=== PATIENT | male | born 1940 | race Caucasian/White ===

== ENCOUNTER 2017-06-01 07:44 | Day surgery (SDC) | payer MEDICARE, BC ==
[2017-05-24 14:27] VITALS: BMI 26.5
[~2017-06-01 07:44] MED LIST: LACTATED RINGERS 1,000 ML IV SCH; LIDOCAINE 1% 20 ML VIAL (10MG/ML) FOR IV START INTRADERMA PRN; MOXIFLOXACIN HCL 0.5% DROPS 3 ML BTL OP ONE; TETRACAINE 0.5% OPHTH (PF) DROPS 4 ML BTL OP ONE; TIMOLOL 0.5% OPHTH SOLN (PF) 0.2 ML DROPERETTE OP ONE
[2017-06-01 08:59] VITALS: RESP 16; TEMP 98.4
[2017-06-01] MEDS: PHENYLEPHRINE 2.5% OPHTH DRP 2ML OP NR ×3 (09:00→09:15)
[2017-06-01] MEDS: CYCLOPENTOLATE 1% OPHTH SOLN 2 ML BTL OP ONE ×2 (09:06→09:18)
[2017-06-01] MEDS ORDERED: BALANCED SALT IRRIG SOLN COMB2 15 ML IRRIG.SOLN INTRAOCULA ONE (09:44)
[2017-06-01] MEDS ORDERED: TIMOLOL 0.5% OPHTH SOLN (PF) 0.2 ML DROPERETTE RIGHT EYE ONE (09:44)
[2017-06-01] MEDS ORDERED: LIDOCAINE 1% (PF) 10MG/ML VIAL MISCELLANE ONE (09:44)
[2017-06-01] MEDS ORDERED: MOXIFLOXACIN HCL 0.5% DROPS 3 ML BTL RIGHT EYE ONE (09:45)
[2017-06-01] MEDS ORDERED: fentaNYL (PF) 50 MCG/ML 2 ML AMP ONE (09:46)
[2017-06-01] MEDS ORDERED: MIDAZOLAM 2 MG/2 ML VIAL ONE (09:46)
[2017-06-01] MEDS ORDERED: HYALURONATE SODIUM INTRAOCULAR 1 EACH SYRINGE (12MG/ML) INTRAOCULA ONE (10:01)
--- NOTE | 2017-06-01 10:16 | P.OP ---
Date of Procedure: 06/01/17 Preoperative Diagnosis: NS & CS Postoperative Diagnosis: same Procedure(s) Performed: PIOL, OD Implants: PCB00 23.00 Anesthesia: MAC Surgeon: Arturo Burger Estimated Blood Loss (ml): 0 Pathology: none sent Condition: stable Disposition: same day Indications for Procedure: blurry vision Operative Findings: No complications Description of Procedure:
[2017-06-01 10:31] VITALS: BP 111/66; PULSE 73
--- NOTE | 2017-06-02 09:48 | OP ---
DATE OF SURGERY: 06/01/2017 COMMUNITY SUPPORT SPECIALIST: PREOPERATIVE DIAGNOSES: Nuclear sclerosis, cortical sclerosis. POSTOPERATIVE DIAGNOSES: Same. OPERATION: Phacoemulsification of cataract and intraocular lens implant of the right eye. ESTIMATED BLOOD LOSS: Zero. SPECIMEN TAKEN: None. NARRATIVE: After obtaining the appropriate consent, the patient was brought to the Operating Room where the patient was placed under cardiac monitoring and prepped and draped in the usual sterile manner. At the 11 oclock position a 15 degree super sharp blade was used to create a paracentesis followed by instillation of 1% Xylocaine MPF 50:50 mix with BSS into the anterior chamber. This was followed by Amvisc to stabilize the anterior chamber. At the 9 o clock position a self-sealing corneal flap incision was created using 2.8 mm shantell keratome. A cystatome was used to initiate a continuous tear capsulorrhexis which was completed with the Utrata forceps. A Binkhorst cannula was used to hydrodissect the lens nucleus followed by hydrodelineation. Phacoemulsification of the lens was performed utilizing phacochop in 30.63 seconds at 14% power. The remaining cortical material was removed using the irrigation aspiration mode followed by additional 1% Xylocaine MPF into the anterior chamber followed by viscoelastic to stabilize the capsular bag. An [id number] 23.0 diopters posterior chamber lens was placed into the capsular bag without difficulty. The remaining viscoelastic material was removed from the anterior chamber with the irrigation/aspiration. Balanced salt solution was used to normalize the intraocular pressure. The incision was checked for watertight integrity. The patient then received two drops of 0.5% timolol followed by two drops Vigamox, was lightly patched and shielded in the usual manner. There were no complications from the procedure. The patient tolerated the procedure well and was returned to recovery in good condition. ASHER
== END 2017-06-01 10:51 | disposition home or self-care (01) ==
LOC: OR 07:44
PROVIDERS: ATTEND Ophthalmology
DX: H25.13 Age-related nuclear cataract, bilateral (principal); H25.013 Cortical age-related cataract, bilateral; H52.223 Regular astigmatism, bilateral; H52.13 Myopia, bilateral; H53.002 Unspecified amblyopia, left eye; H53.50 Unspecified color vision deficiencies; Z87.891 Personal history of nicotine dependence; Z79.899 Other long term (current) drug therapy

== ENCOUNTER 2017-06-22 09:50 | Day surgery (SDC) | payer MEDICARE, BC ==
[2017-06-17 15:31] VITALS: BMI 26.5
[~2017-06-22 09:50] MED LIST changes: -LIDOCAINE 1% 20 ML VIAL (10MG/ML) FOR IV START INTRADERMA PRN
[2017-06-22 10:56] VITALS: TEMP 97
[2017-06-22] MEDS: CYCLOPENTOLATE 1% OPHTH SOLN 2 ML BTL OP ONE ×3 (10:59→11:05)
[2017-06-22] MEDS: PHENYLEPHRINE 2.5% OPHTH DRP 2ML OP NR ×3 (11:01→11:07)
[2017-06-22] MEDS: LACTATED RINGERS 1,000 ML IV SCH ×2 (11:02→11:47)
[2017-06-22] MEDS ORDERED: HYALURONATE SODIUM INTRAOCULAR 1 EACH SYRINGE (12MG/ML) INTRAOCULA ONE (11:47)
[2017-06-22] MEDS ORDERED: BALANCED SALT IRRIG SOLN COMB2 15 ML IRRIG.SOLN INTRAOCULA ONE (11:48)
[2017-06-22] MEDS ORDERED: LIDOCAINE 1% (PF) 10MG/ML VIAL SQ ONE (11:48)
[2017-06-22] MEDS ORDERED: MIDAZOLAM 2 MG/2 ML VIAL ONE (11:49)
[2017-06-22] MEDS ORDERED: fentaNYL (PF) 50 MCG/ML 2 ML AMP ONE (11:49)
[2017-06-22] MEDS ORDERED: EPINEPHrine (PF) 0.3 ML in BALANCED SALT IRRIG SOLN COMB2 500 ML IRRIGATION ONE (11:56)
--- NOTE | 2017-06-22 12:16 | P.OP ---
Date of Procedure: 06/22/17 Preoperative Diagnosis: NS & CS Postoperative Diagnosis: NS & CS Procedure(s) Performed: PIOL, OS Implants: PCB00 +27.00 Anesthesia: MAC Surgeon: Arturo Burger Estimated Blood Loss (ml): 0 Pathology: none sent Condition: stable Disposition: same day Indications for Procedure: blurry vision Operative Findings: no complications Description of Procedure:
[2017-06-22 12:17] VITALS: RESP 18
[2017-06-22 12:32] VITALS: BP 122/58; PULSE 78
[2017-06-22 14:06] LABS: Glucose,Whole Blood 112 mg/dL (75-99)
--- NOTE | 2017-06-23 13:38 | OP ---
OPERATIVE REPORT Date of Surgery: DATE OF SURGERY: May, [facility]:: PREOPERATIVE DIAGNOSES:: 1. Nuclear sclerosis. 2. Cortical sclerosis. POSTOPERATIVE DIAGNOSIS:: Same. OPERATION:: Phacoemulsification of cataract and intraocular lens implant to the left eye. ESTIMATED BLOOD LOSS:: Zero. SPECIMEN TAKEN:: None. NARRATIVE:: After obtaining the appropriate consent, the patient was brought to the Operating Room where the patient was placed under cardiac monitoring and prepped and draped in the usual sterile manner. At the 5 o'clock position a 15 degree super sharp blade was used to create a paracentesis followed by instillation of 1% Xylocaine MPF 50:50 mix with BSS into the anterior chamber. This was followed by Amvisc to stabilize the anterior chamber. At the 3 o'clock position a self-sealing corneal flap incision was created using 2.8 mm shantell keratome. A cystatome was used to initiate a continuous tear capsulorrhexis which was completed with the Utrata forceps. A Binkhorst cannula was used to hydrodissect the lens nucleus followed by hydrodelineation. Phacoemulsification of the lens was performed utilizing phacochop in 29.62 seconds at 13% power. The remaining cortical material was removed using the irrigation aspiration mode followed by additional 1% Xylocaine MPF into the anterior chamber followed by viscoelastic to stabilize the capsular bag. An PURVI PCB00 27.0 posterior chamber lens was placed into the capsular bag without difficulty. The remaining viscoelastic material was removed from the anterior chamber with the irrigation/aspiration. Balanced salt solution was used to normalize the intraocular pressure. The incision was checked for watertight integrity. The patient then received two drops of 0.5% timolol followed by two drops Vigamox, was lightly patched and shielded in the usual manner. There were no complications from the procedure. The patient tolerated the procedure well and was returned to recovery in good condition. MMODL / IJN: [id number] /
== END 2017-06-22 12:53 | disposition home or self-care (01) ==
LOC: OR 09:50
PROVIDERS: ATTEND Ophthalmology
DX: H25.12 Age-related nuclear cataract, left eye (principal); H25.012 Cortical age-related cataract, left eye; H52.13 Myopia, bilateral; H52.223 Regular astigmatism, bilateral; H53.022 Refractive amblyopia, left eye; E78.5 Hyperlipidemia, unspecified; Z79.899 Other long term (current) drug therapy; Z87.891 Personal history of nicotine dependence
CPT/HCPCS: 66984; C1780; J2250; J0171; J3010; J2001

== ENCOUNTER 2021-07-07 18:03 | Emergency (ER) | payer BC, MEDICARE ==
[2021-07-07 18:08] VITALS: BP 124/70; PULSE 86; RESP 20; TEMP 98
--- NOTE | 2021-07-07 18:31 | ED ---
General Adult HPI - General Chief complaint: Extremity Problem,Nontraumatic Stated complaint: trouble walking Time Seen by Provider: 07/07/21 18:05 Source: patient, RN notes reviewed, old records reviewed Mode of arrival: ambulatory Limitations: no limitations - History of Present Illness Initial comments: This is a 81-year-old male presents emergency room complaining about right groin pain. Patient states this happened occasionally in the past but today it occurred and it lasted about 15 minutes and then it slowly subsided. Patient states currently it little uncomfortable but not bad. Patient states about 2 weeks ago he did lift something heavy but nothing in the last few days. Patient states there is a bulge in that area when this occurs. Patient denies any abdominal pain. Patient denies any nausea vomiting diarrhea. - Related Data Home Medications Medication Instructions Recorded Confirmed gemfibroziL [Lopid] 600 mg PO BID 05/24/17 06/22/17 Allergies Allergy/AdvReac Type Severity Reaction Status Date / Time No Known Allergies Allergy Verified 07/07/21 18:08 Review of Systems ROS Statement: Those systems with pertinent positive or pertinent negative responses have been documented in the HPI. ROS Other: All systems not noted in ROS Statement are negative. Past Medical History Past Medical History: Diabetes Mellitus, Eye Disorder, Hyperlipidemia, Osteoarthritis (OA), Pneumonia Additional Past Medical History / Comment(s): Hx pneumonia X3, last 5 yrs ago, hyperlipemia WNL on medication, Diabetes resolved 4 yrs ago after diet changes. Current bilateral cataracts. History of Any Multi-Drug Resistant Organisms: None Reported Past Surgical History: Hernia Repair Additional Past Surgical History / Comment(s): right cataract removed 06-01-17 Past Anesthesia/Blood Transfusion Reactions: No Reported Reaction Past Psychological History: Depression Smoking Status: Never smoker Past Alcohol Use History: None Reported Past Drug Use History: None Reported - Past Family History Father Family Medical History: Cancer Additional Family Medical History / Comment(s): Stomach Cancer General Exam - General Exam Comments Initial Comments: GENERAL Patient is well-developed and well-nourished. Patient is in mild distress. EYES Patient's pupils are equal and round. Extraocular motion is intact SKIN Unremarkable INGUINAL Right inguinal area had a hernia which was fairly quickly reproducible NEURO The patient is alert and oriented 3 PYSCH Patient has normal interpersonal interactions. MUSCULOSKELETAL Limitations: no limitations Course Vital Signs 07/07/21 18:05 Temperature 98.0 F Pulse Rate 86 Respiratory 20 Rate Blood Pressure 124/70 O2 Sat by Pulse 95 Oximetry Medical Decision Making - Medical Decision Making AFTER PATIENT'S HERNIA WAS REDUCED FELT back to his baseline and was able to ambulate without issue. Disposition Clinical Impression: Right inguinal hernia Disposition: HOME SELF-CARE Instructions (If sedation given, give patient instructions): Inguinal Hernia (ED) Is patient prescribed a controlled substance at d/c from ED?: No Referrals: Saul King MD [STAFF PHYSICIAN] - 1-2 days Time of Disposition: 18:31
== END 2021-07-07 19:00 | disposition home or self-care (01) ==
LOC: EC 18:03
DX: K40.90 Unilateral inguinal hernia, without obstruction or gangrene, not specified as recurrent (principal); E11.36 Type 2 diabetes mellitus with diabetic cataract; E78.5 Hyperlipidemia, unspecified; M19.90 Unspecified osteoarthritis, unspecified site; F32.9 Major depressive disorder, single episode, unspecified
CPT/HCPCS: 99283

== ENCOUNTER 2021-07-29 06:11 | Day surgery (SDC) | payer MEDICARE ==
[2021-07-23 09:33] VITALS: BMI 21.5
[~2021-07-29 06:11] MED LIST changes: +ACETAMINOPHEN TAB 500 MG TAB PO PRN; +HEPARIN SODIUM,PORCINE/PF 5,000 UNIT/0.5 ML SYRINGE SQ PRN; -LACTATED RINGERS 1,000 ML IV SCH; -MOXIFLOXACIN HCL 0.5% DROPS 3 ML BTL OP ONE; -TETRACAINE 0.5% OPHTH (PF) DROPS 4 ML BTL OP ONE; -TIMOLOL 0.5% OPHTH SOLN (PF) 0.2 ML DROPERETTE OP ONE
[2021-07-29] MEDS ORDERED: LIDOCAINE 1% (10MG/ML) FOR IV START INTRADERMA PRN (06:42)
[2021-07-29] MEDS ORDERED: ONDANSETRON 4 MG/2 ML VIAL IVP ONE (06:42)
[2021-07-29] MEDS ORDERED: DEXAMETHASONE SOD PHOSPHATE 4 MG/ML 1 ML VIAL IV ONE (06:42)
[2021-07-29] MEDS ORDERED: LACTATED RINGERS 1,000 ML IV SCH (06:42)
[2021-07-29 07:12] LABS: Glucose,Whole Blood 100 mg/dL (75-99)
[2021-07-29] MEDS ORDERED: MIDAZOLAM 2 MG/2 ML VIAL IV ONE (07:42)
[2021-07-29] MEDS ORDERED: KETAMINE 10 MG/ML 20 ML VIAL ONE (08:05)
[2021-07-29] MEDS ORDERED: NEOSTIGMINE 1 MG/ML 10 ML VIAL ONE (08:05)
[2021-07-29] MEDS ORDERED: PHENYLEPHRINE-0.9% NACL SYG 1,000 MCG/10 ML SYRINGE ONE (08:05)
[2021-07-29] MEDS ORDERED: GLYCOPYRROLATE 0.2 MG/ML 2 ML VIAL ONE (08:05)
[2021-07-29] MEDS ORDERED: SODIUM CHLORIDE 0.9% (PF) 10 ML VIAL ONE (08:05)
[2021-07-29] MEDS ORDERED: PROPOFOL 10 MG/ML 20 ML VIAL IV ONE (08:05)
[2021-07-29] MEDS ORDERED: SUCCINYLCHOLINE CHLORIDE 100 MG/5 ML SYR IV ONE (08:05)
[2021-07-29] MEDS ORDERED: LIDOCAINE 1% INJ 10MG/ML (20 ML MDV) ONE (08:05)
[2021-07-29] MEDS ORDERED: ePHEDrine SULFATE/0.9% NACL/PF 50 MG/5 ML SYRINGE IV ONE (08:05)
[2021-07-29] MEDS ORDERED: fentaNYL (PF) 50 MCG/ML 2 ML AMP ONE (08:05)
[2021-07-29] MEDS ORDERED: ROPIVACAINE 5 MG/ML 30 ML VIAL ONE (08:05)
[2021-07-29] MEDS ORDERED: ROCURONIUM 10 MG/ML (5 ML VIAL) IV ONE (08:05)
[2021-07-29] MEDS ORDERED: LIDOCAINE 1%-EPI 1:100,000 20 ML VIAL SQ ONE (08:36)
--- NOTE | 2021-07-29 09:18 | P.GSHP ---
History of Present Illness H&P Date: 07/29/21 Chief Complaint: Right inguinal hernia This is a 81-year-old male developed a right internal hernia. Patient presents today for laparoscopic robotic system repair. Past Medical History Past Medical History: Diabetes Mellitus, Eye Disorder, Hyperlipidemia, Osteoarthritis (OA), Pneumonia Additional Past Medical History / Comment(s): Hx pneumonia X3, last 5 yrs ago, hyperlipemia WNL on medication, Diabetes resolved 4 yrs ago after diet changes. Current bilateral cataracts. History of Any Multi-Drug Resistant Organisms: None Reported Past Surgical History: Hernia Repair Additional Past Surgical History / Comment(s): right cataract removed 06-01-17 Past Anesthesia/Blood Transfusion Reactions: No Reported Reaction Smoking Status: Never smoker - Past Family History Father Family Medical History: Cancer Additional Family Medical History / Comment(s): Stomach Cancer Medications and Allergies Home Medications Medication Instructions Recorded Confirmed Type gemfibroziL [Lopid] 600 mg PO BID 05/24/17 07/23/21 History Allergies Allergy/AdvReac Type Severity Reaction Status Date / Time No Known Allergies Allergy Verified 07/29/21 06:56 Surgical - Exam Vital Signs Temp Pulse Resp BP Pulse Ox 97.2 F L 80 16 128/60 96 07/29/21 07:18 07/29/21 07:18 07/29/21 07:18 07/29/21 07:18 07/29/21 07:18 - General well developed, well nourished, no distress - Eyes PERRL - ENT normal pinna - Neck no masses - Respiratory normal expansion - Cardiovascular Rhythm: regular - Abdomen Abdomen: soft, non tender Hernia: inguinal (Enlarged right inguinal hernia) Results - Labs Abnormal Lab Results - Last 24 Hours (Table) 07/29/21 Range/Units 07:11 POC Glucose (mg/dL) 100 H (75-99) mg/dL Assessment and Plan Assessment: Right inguinal hernia. We'll perform laparoscopic robotic-assisted repair.
--- NOTE | 2021-07-29 09:20 | P.OP ---
Date of Procedure: 07/29/21 Preoperative Diagnosis: Right inguinal hernia Postoperative Diagnosis: Right inguinal hernia Procedure(s) Performed: Laparoscopic robotic system repair of radial hernia Excision of cord lipoma Anesthesia: TONJA Surgeon: Saul King Estimated Blood Loss (ml): 10 Pathology: other (Cord lipoma) Condition: stable Disposition: PACU Description of Procedure: MThe patient's placed on the operating table in the supine position. The patient received general anesthesia. The patient's abdomen was prepped and draped in usual sterile fashion. The skin was anesthetized 1% local Xylocaine at the incision sites. Using an 11 blade a skin incision was made at the u mbilicus. The fascia was grasped with a Rossy and then the peritoneal cavity was entered with the Veress needle. Position of the Veress needle was confirmed with a positive drop test. After adequate insufflation a 5 mm trocar was placed into the peritoneal cavity. The Laparoscope was placed the peritoneal cavity. And a robotic 8 mm trocar was placed in the right lateral position and then another 8 mm robotic trochars placed in the left lateral position. The original 5 mm trocar was exchanged for a 12 mm trocar. The patient was placed in reverse Trendelenburg and then the patient was docked to the robot. Next the peritoneum over top of the hernia was incised and then using blunt and sharp dissection and electrocautery the hernia sac was dissected free from the floor of the inguinal canal. The cord lipoma was dissected free and sent to pathology. The hernia sac was completely reduced into the peritoneal cavity. And then using the Pro slasher runner mesh the hernia was repaired. The peritoneum was then sutured with 20V lock suture. The patient was then undocked the robot. The needle was withdrawn from the peritoneal cavity. The umbilical trocar site was closed with 0 Ethibond suture. The skin was closed interrupted 3-0 Monocryl suture. Dermabond dressing was applied. Patient was sent to recovery in stable condition.
[2021-07-29 09:28] VITALS: TEMP 98
[2021-07-29] MEDS ORDERED: KETOROLAC 15 MG/ML 1 ML VIAL ONE (09:28)
[2021-07-29] MEDS ORDERED: KETOROLAC 15 MG/ML 1 ML VIAL IVP ONE (09:33)
[2021-07-29] MEDS: HYDROmorphone 0.5 MG/0.5 ML SYRINGE IVP PRN ×2 (09:35→09:43)
[2021-07-29 10:27] VITALS: RESP 16
[2021-07-29] MEDS ORDERED: ACETAMINOPHEN TAB 325 MG TAB PO ONE (12:35)
[2021-07-29 13:44] VITALS: BP 122/78; PULSE 78
--- NOTE | 2021-07-30 20:30 | P.ANPRN ---
Procedure Note - Anesthesia - Nerve Block Performed Bilateral Erector Spinae Single Time Out Performed: Yes Date of Procedure: 07/29/21 Procedure Start Time: 07:42 Procedure Stop Time: 07:50 Location of Patient: PreOp Indication: Acute Post-Operative Pain, Requested by Surgeon Sedation Type: Sedate with meaningful contact maintained Preparation: Sterile Prep Position: Prone Needle Types: Pajunk Needle Gauge: 21 Ultrasound used to visualize needle placement: Yes Ultrasound used to observe medication spread: Yes Blood Aspirated: No Pain Paresthesia on Injection Noted: No Resistance on Injection: Normal Image Stored and Saved: Yes Events: Uneventful and Well Tolerated (ropi .5% 15cc plus normal saline 15cc given bilaterally at L1)
== END 2021-07-29 13:08 | disposition home or self-care (01) ==
LOC: OR 06:11
PROVIDERS: ATTEND Surgery
DX: K40.90 Unilateral inguinal hernia, without obstruction or gangrene, not specified as recurrent (principal); E11.36 Type 2 diabetes mellitus with diabetic cataract; E78.5 Hyperlipidemia, unspecified; M19.90 Unspecified osteoarthritis, unspecified site; Z80.0 Family history of malignant neoplasm of digestive organs
CPT/HCPCS: 49650; 64999; 88305; C1781; J2250; J1100; J2710; J0690; J2405; J2001; J3010; J2795; J1885; J2370; J0330; J2704; J1170; J1644

== ENCOUNTER 2025-04-18 15:38 | Inpatient (IN) | payer MEDICARE ==
--- NOTE | 2025-04-18 15:48 | ED ---
General Adult HPI - General Source: patient, family, RN notes reviewed Mode of arrival: wheelchair Limitations: no limitations <Je Delgado - Last Filed: 04/18/25 15:46> <Cece Atkins - Last Filed: 04/27/25 01:02> - General Stated complaint: Had a fall, very weak Time Seen by Provider: 04/18/25 15:43 - History of Present Illness Initial comments: 84-year-old male presents emergency department with family with chief complaint of increasing weakness. Patient reports he had a fall yesterday he was eval by EMS and recommended to come to emergency department but was feeling improved and stayed home. Patient states today he has had increasing weakness overall, states that he has increased sputum, shortness of breath and change in his voice per family he did not hit his head he had no head injury has no complaints of head or neck pain. Family and patient deny any significant past medical history no current medications. (Je Delgado) 84-year-old male presents emergency department with weakness. Son is at bedside and helped provide the history. States that the patient has been weak and had a fall yesterday landing on his right side. He was evaluated by EMS. They recommended that the patient come into the hospital however he refused. Today the patient is short of breath with increased sputum production. Family states that he did not hit his head. Denies neck or back pain. Son states that he does feel as if his father is confused. Patient currently not on any medications as he does not see a physician. No report of any fevers. No change in his bowel or bladder habits. No other alleviating, precipitating or modifying factors (Cece Atkins) - Related Data Previous Rx's Medication Instructions Recorded ALPRAZolam [Xanax] 0.25 mg PO BID PRN #4 tab 04/24/25 Amoxic-Pot Clav 600-42.9MG/5Ml 5 ml PO Q12H 7 Days #75 ml 04/24/25 [Augmentin 600-42.9 mg/5 ml Liquid] Aspirin 81 mg PO DAILY tab 04/24/25 Atorvastatin [Lipitor] 20 mg PO HS tab 04/24/25 Budesonide [Pulmicort] 1 mg INHALATION RT-BID ml 04/24/25 Digoxin [Lanoxin] 125 mcg PO DAILY tab 04/24/25 Enoxaparin [Lovenox] 40 mg SQ DAILY each 04/24/25 Formoterol Fumarate [Perforomist] 20 mcg INHALATION RT-BID ml 04/24/25 INSULIN LISPRO (HumaLOG) [HumaLOG] 0 unit SQ ACHS each 04/24/25 Ipratropium-Albuterol Nebulize 3 ml INHALATION RT-Q4H each 04/24/25 [Duoneb 0.5 mg-3 mg/3 ml Soln] Nystatin 100,000 Unit/ml Susp 5 ml PO QID 10 Days ml 04/24/25 [Mycostatin Oral Susp] Pantoprazole [Protonix] 40 mg PO AC-BRKFST tab 04/24/25 QUEtiapine [SEROquel] 12.5 mg PO HS tab 04/24/25 predniSONE See Taper PO DIRECTED #30 tab 04/24/25 Allergies Allergy/AdvReac Type Severity Reaction Status Date / Time No Known Allergies Allergy Verified 04/18/25 19:49 Review of Systems ROS Other: All systems not noted in ROS Statement are negative. <Je Delgado - Last Filed: 04/18/25 15:46> ROS Other: All systems not noted in ROS Statement are negative. <Cece Atkins - Last Filed: 04/27/25 01:02> ROS Statement: Those systems with pertinent positive or pertinent negative responses have been documented in the HPI. Past Medical History Past Medical History: Diabetes Mellitus, Eye Disorder, Hyperlipidemia, Osteoarthritis (OA), Pneumonia Additional Past Medical History / Comment(s): Hx pneumonia X3, last 5 yrs ago, hyperlipemia WNL on medication, Diabetes resolved 4 yrs ago after diet changes. Current bilateral cataracts. History of Any Multi-Drug Resistant Organisms: None Reported Past Surgical History: Hernia Repair Additional Past Surgical History / Comment(s): right cataract removed 06-01-17 Past Anesthesia/Blood Transfusion Reactions: No Reported Reaction Smoking Status: Never smoker - Past Family History Father Family Medical History: Cancer Additional Family Medical History / Comment(s): Stomach Cancer <Je Delgado - Last Filed: 04/18/25 15:46> General Exam <Je Delgado - Last Filed: 04/18/25 15:46> General appearance: alert, in no apparent distress Head exam: Present: atraumatic, normocephalic, normal inspection Eye exam: Present: normal appearance, PERRL, EOMI. Absent: scleral icterus, conjunctival injection, periorbital swelling ENT exam: Present: normal exam, mucous membranes moist Neck exam: Present: normal inspection. Absent: tenderness, meningismus, lymphadenopathy Respiratory exam: Present: rales. Absent: respiratory distress, wheezes, rhonchi, stridor Cardiovascular Exam: Present: normal rhythm, tachycardia, normal heart sounds. Absent: systolic murmur, diastolic murmur, rubs, gallop, clicks GI/Abdominal exam: Present: soft, normal bowel sounds. Absent: distended, tenderness, guarding, rebound, rigid Extremities exam: Present: normal inspection, full ROM, normal capillary refill. Absent: tenderness, pedal edema, joint swelling, calf tenderness Back exam: Present: normal inspection Neurological exam: Present: alert, oriented X3, CN II-XII intact Psychiatric exam: Present: normal affect, normal mood Skin exam: Present: warm, dry, intact, normal color. Absent: rash <Cece Atkins - Last Filed: 04/27/25 01:02> - General Exam Comments Initial Comments: Visual Physical Exam Vital signs reviewed General: Well-appearing, nontoxic, no acute distress. Head: Normocephalic, atraumatic Eyes: PERRLA, EOMI ENT: Airway patent Chest: Nonlabored breathing Skin: No visual rash, normal skin tone Neuro: Alert and oriented 3 Musculoskeletal: No gross abnormalities (Dedoe,Je M) Course Vital Signs 04/18/25 04/18/25 04/18/25 15:49 16:10 16:34 Temperature 99.1 F Pulse Rate 108 H 105 H Respiratory 16 22 Rate Blood Pressure 100/63 118/78 O2 Sat by Pulse 86 L 88 L Oximetry Fraction of Inspired Oxygen (FIO2) 04/18/25 04/18/25 04/18/25 16:48 17:17 18:16 Temperature Pulse Rate 105 H 106 H 105 H Respiratory 20 22 Rate Blood Pressure 120/78 107/64 O2 Sat by Pulse 93 L 95 93 L Oximetry Fraction of Inspired Oxygen (FIO2) 04/18/25 04/18/25 04/18/25 19:52 21:49 21:52 Temperature Pulse Rate 101 H 113 H Respiratory 22 22 Rate Blood Pressure 112/71 110/68 O2 Sat by Pulse 90 L 85 L 98 Oximetry Fraction of Inspired Oxygen (FIO2) 04/18/25 04/18/25 04/18/25 23:00 23:10 23:35 Temperature Pulse Rate 112 H 85 Respiratory 22 Rate Blood Pressure 106/67 O2 Sat by Pulse 96 Oximetry Fraction of 100 Inspired Oxygen (FIO2) 04/18/25 04/18/25 04/18/25 23:41 23:45 23:51 Temperature Pulse Rate 87 Respiratory Rate Blood Pressure O2 Sat by Pulse Oximetry Fraction of 40 40 Inspired Oxygen (FIO2) 04/19/25 04/19/25 04/19/25 00:34 01:00 02:00 Temperature 97.4 F L Pulse Rate 87 91 102 H Respiratory 20 20 20 Rate Blood Pressure 86/61 95/59 102/74 O2 Sat by Pulse 91 L 92 L 91 L Oximetry Fraction of Inspired Oxygen (FIO2) 04/19/25 04/19/25 04/19/25 03:00 03:57 04:00 Temperature Pulse Rate 89 89 87 Respiratory 18 20 Rate Blood Pressure 85/65 98/71 O2 Sat by Pulse 94 L 96 Oximetry Fraction of 40 Inspired Oxygen (FIO2) 04/19/25 04/19/25 04/19/25 04:12 05:00 06:00 Temperature 97.9 F 97.8 F Pulse Rate 90 97 99 Respiratory 21 20 Rate Blood Pressure 91/60 88/65 O2 Sat by Pulse 94 L 94 L Oximetry Fraction of Inspired Oxygen (FIO2) 04/19/25 04/19/25 04/19/25 07:54 08:20 08:21 Temperature Pulse Rate 94 90 Respiratory 18 Rate Blood Pressure 90/57 O2 Sat by Pulse 94 L Oximetry Fraction of 40 Inspired Oxygen (FIO2) 04/19/25 04/19/25 04/19/25 08:30 08:31 08:41 Temperature Pulse Rate 88 90 94 Respiratory Rate Blood Pressure O2 Sat by Pulse Oximetry Fraction of Inspired Oxygen (FIO2) 04/19/25 04/19/25 04/19/25 10:02 11:05 11:41 Temperature Pulse Rate 98 92 92 Respiratory 23 20 Rate Blood Pressure 102/72 87/66 O2 Sat by Pulse 95 93 L Oximetry Fraction of Inspired Oxygen (FIO2) 04/19/25 04/19/25 04/19/25 11:53 13:08 15:53 Temperature Pulse Rate 92 103 H 98 Respiratory 18 Rate Blood Pressure 73/54 O2 Sat by Pulse 93 L Oximetry Fraction of Inspired Oxygen (FIO2) 04/19/25 04/19/25 04/19/25 16:07 18:16 19:36 Temperature 98.4 F Pulse Rate 102 H 113 H 108 H Respiratory 20 20 Rate Blood Pressure 106/57 95/75 O2 Sat by Pulse 96 96 Oximetry Fraction of Inspired Oxygen (FIO2) 04/19/25 04/19/25 04/19/25 20:22 20:31 20:32 Temperature Pulse Rate 109 H 108 H 108 H Respiratory Rate Blood Pressure O2 Sat by Pulse Oximetry Fraction of Inspired Oxygen (FIO2) 04/19/25 04/19/25 04/19/25 20:47 21:00 22:25 Temperature Pulse Rate 115 H 104 H Respiratory 16 Rate Blood Pressure 104/63 O2 Sat by Pulse 98 Oximetry Fraction of 40 Inspired Oxygen (FIO2) 04/19/25 04/19/25 04/19/25 22:31 23:45 23:49 Temperature Pulse Rate 108 H 99 90 Respiratory 16 16 Rate Blood Pressure 94/64 97/70 O2 Sat by Pulse 97 98 Oximetry Fraction of Inspired Oxygen (FIO2) 04/20/25 04/20/25 04/20/25 00:00 02:30 03:38 Temperature 98.5 F Pulse Rate 96 100 Respiratory 16 Rate Blood Pressure 91/70 O2 Sat by Pulse 98 Oximetry Fraction of 40 Inspired Oxygen (FIO2) 04/20/25 04/20/25 04/20/25 03:51 04:00 06:00 Temperature 98.7 F Pulse Rate 106 H 112 H 106 H Respiratory 16 16 Rate Blood Pressure 98/78 104/66 O2 Sat by Pulse 98 98 Oximetry Fraction of Inspired Oxygen (FIO2) 04/20/25 04/20/25 04/20/25 08:00 08:32 08:44 Temperature 97.8 F Pulse Rate 105 H 96 100 Respiratory 18 Rate Blood Pressure 110/95 O2 Sat by Pulse 92 L 95 Oximetry Fraction of Inspired Oxygen (FIO2) 04/20/25 04/20/25 04/20/25 08:45 08:55 09:00 Temperature Pulse Rate 100 100 112 H Respiratory 20 Rate Blood Pressure 103/54 O2 Sat by Pulse 99 Oximetry Fraction of Inspired Oxygen (FIO2) 04/20/25 04/20/25 04/20/25 11:18 11:32 12:00 Temperature 98.5 F Pulse Rate 101 H 104 H 105 H Respiratory 20 Rate Blood Pressure 97/66 O2 Sat by Pulse 99 Oximetry Fraction of Inspired Oxygen (FIO2) Medical Decision Making <Je Delgado - Last Filed: 04/18/25 15:46> - Lab Data Result diagrams: 04/24/25 04:40 04/24/25 04:40 <MillyCece Adelso - Last Filed: 04/27/25 01:02> - Medical Decision Making I completed the quick note portion of this chart signed Je Delgado PA-C (Je Delgado) Was pt. sent in by a medical professional or institution (Dr. PA, [facility], urgent care, hospital, or detention...) When possible be specific @ -No Did you speak to anyone other than the patient for history (EMS, parent, family, police, friend...)? What history was obtained from this source @ -Spoke with son for history Did you review nursing and triage notes (agree or disagree)? Why? @ -I reviewed and agree with nursing and triage notes Were old charts reviewed (outside hosp., previous admission, EMS record, old EKG, old radiological studies, urgent care reports/EKG's, detention records)? Report findings @ -No old charts were reviewed Differential Diagnosis (chest pain, altered mental status, abdominal pain women, abdominal pain men, vaginal bleeding, weakness, fever, dyspnea, syncope, headache, dizziness, GI bleed, back pain, seizure, CVA, palpatations, mental health, musculoskeletal)? @ -Differential Dyspnea: Coronary syndrome, arrhythmia, tamponade, asthma, COPD, pulmonary embolism, pneumonia, pneumothorax, pulmonary effusion, anaphylaxis, diabetic ketoacidosis, flailed chest, pulmonary contusion, diaphragmatic rupture, anemia, neuromuscular, this is not meant to be an all-inclusive list. EKG interpreted by me (3pts min.). @ -Yes and demonstrates sinus tachycardia with a rate of 104. AK interval 137. QRS 99. QTc 398. No acute ST segment elevations X-rays interpreted by me (1pt min.). @ -Yes which demonstrates pneumonia versus heart failure CT interpreted by me (1pt min.). @ -Yes which demonstrates no acute process U/S interpreted by me (1pt. min.). @ -None done What testing was considered but not performed or refused? (CT, X-rays, U/S, lab s)? Why? @ -None What meds were considered but not given or refused? Why? @ -None Did you discuss the management of the patient with other professionals (professionals i.e. , PA, [facility], lab, RT, psych nurse, social media community manager, powder room attendant, teacher, deputy juvenile officer, medical case manager)? Give summary @ -Spoke with Shasta from [facility] for the admission Was smoking cessation discussed for >3mins.? @ -No Was critical care preformed (if so, how long)? @ -No Were there social determinants of health that impacted care today? How? (Homelessness, low income, unemployed, alcoholism, drug addiction, transportation, low edu. Level, literacy, decrease access to med. care, prison, rehab)? @ -No Was there de-escalation of care discussed even if they declined (Discuss DNR or withdrawal of care, Hospice)? DNR status @ -No What co-morbidities impacted this encounter? (DM, HTN, Smoking, COPD, CAD, Cancer, CVA, ARF, Chemo, Hep., AIDS, mental health diagnosis, sleep apnea, morbid obesity)? @ -None per patient Was patient admitted / discharged? Hospital course, mention meds given and route, prescriptions, significant lab abnormalities, going to OR and other pertinent info. @ -Upon arrival patient seen and evaluated in trauma 4. Patient is hypoxic upon arrival. He is 86% on 3 L and therefore increased to 5 L nasal cannula. Patient is also tachycardic. Laboratory studies are completed which reveal la ctic acid of 2.3. Trop of 0.5 and a BNP of 12,500. Chest x-ray which demonstrates pneumonia versus pulmonary edema. CT of the brain demonstrates no acute intracranial process. Results are discussed with the patient. He is wearing oxygen and appears to be in acute heart failure. Recommended admission for which the patient son was agreeable. Patient is resistant but does agree. He will be admitted with cardiology to consult. Patient admitted in stable condition Undiagnosed new problem with uncertain prognosis? @ -No Drug Therapy requiring intensive monitoring for toxicity (Heparin, Nitro, Insulin, Cardizem)? @ -No Were any procedures done? @ -No Diagnosis/symptom? @ -Acute hypoxic respiratory failure, NSTEMI, acute heart failure Acute, or Chronic, or Acute on Chronic? @ -Acute Uncomplicated (without systemic symptoms) or Complicated (systemic symptoms)? @ -Complicated Side effects of treatment? @ -No Exacerbation, Progression, or Severe Exacerbation? @ -No Poses a threat to life or bodily function? How? (Chest pain, USA, ID, pneumonia, PE, COPD, DKA, ARF, appy, cholecystitis, CVA, Diverticulitis, Homicidal, Suicidal, threat to staff... and all critical care pts) @ -Yes as patient is hypoxic (UlissesceliaCece Adelso) - Lab Data Lab Results 04/18/25 04/18/25 04/18/25 Range/Units 16:25 16:33 16:33 WBC 7.45 (4.50-10.00) 10*3/uL RBC 4.14 L (4.40-5.60) 10*6/uL Hgb 13.2 (13.0-17.0) g/dL Hct 41.5 (39.6-50.0) % MCV 100.2 H (80.0-97.0) fL MCH 31.9 (27.0-32.0) pg MCHC 31.8 L (32.0-37.0) g/dL Plt Count 155 (140-440) 10*3/uL MPV 9.4 L (9.5-12.2) fL Immature Gran % (Auto) 0.4 % Neutrophils % 87.1 % Lymphocytes % 4.7 % Monocytes % 7.7 % Eosinophils % 0.0 % Basophils % 0.1 % Immature Gran # 0.03 (0.00-0.04) 10*3/uL Neutrophils # 6.49 (1.80-7.70) 10*3/uL Lymphocytes # 0.35 L (0.90-5.00) 10*3/uL Monocytes # 0.57 (0.20-1.00) 10*3/uL Eosinophils # 0.00 L (0.04-0.35) 10*3/uL Basophils # 0.01 (0.00-0.10) 10*3/uL PT 11.4 (10.0-12.5) sec INR 1.0 (<1.2) APTT 22.0 (22.0-30.0) sec VBG pH 7.35 (7.31-7.41) VBG pCO2 58 H (37-51) mmHg VBG HCO3 32 H (24-28) mmol/L Sodium (137-145) mmol/L Potassium (3.5-5.1) mmol/L Chloride (98-107) mmol/L Carbon Dioxide (22-30) mmol/L Anion Gap mmol/L BUN (9-20) mg/dL Creatinine (0.66-1.25) mg/dL Est GFR (CKD-EPI)AfAm (>60 ml/min/1.73 sqM) Est GFR (CKD-EPI)NonAf (>60 ml/min/1.73 sqM) Glucose (74-99) mg/dL Lactic Ac Sepsis Rflx Plasma Lactic Acid Brian (0.7-2.0) mmol/L Calcium (8.4-10.2) mg/dL Total Bilirubin (0.2-1.3) mg/dL AST (17-59) U/L ALT (4-49) U/L Alkaline Phosphatase (38-126) U/L Troponin I (0.000-0.034) ng/mL NT-Pro-B Natriuret Pep pg/mL Total Protein (6.3-8.2) g/dL Albumin (3.5-5.0) g/dL Urine Color Urine Appearance (Clear) Urine pH (5.0-8.0) Ur Specific [place] (1.001-1.035) Urine Protein (Negative) Urine Glucose (UA) (Negative) Urine Ketones (Negative) Urine Blood (Negative) Urine Nitrite (Negative) Urine Bilirubin (Negative) Urine Urobilinogen (<2.0) mg/dL Ur Leukocyte Esterase (Negative) Urine RBC (0-5) /hpf Urine WBC (0-5) /hpf Ur Squamous Epith Cells (0-4) /hpf Hyaline Casts (0-2) /lpf Urine Mucus (None) /hpf Urine Legionella Ag (Negative) 04/18/25 04/18/25 04/18/25 Range/Units 16:33 16:33 16:33 WBC (4.50-10.00) 10*3/uL RBC (4.40-5.60) 10*6/uL Hgb (13.0-17.0) g/dL Hct (39.6-50.0) % MCV (80.0-97.0) fL MCH (27.0-32.0) pg MCHC (32.0-37.0) g/dL Plt Count (140-440) 10*3/uL MPV (9.5-12.2) fL Immature Gran % (Auto) % Neutrophils % % Lymphocytes % % Monocytes % % Eosinophils % % Basophils % % Immature Gran # (0.00-0.04) 10*3/uL Neutrophils # (1.80-7.70) 10*3/uL Lymphocytes # (0.90-5.00) 10*3/uL Monocytes # (0.20-1.00) 10*3/uL Eosinophils # (0.04-0.35) 10*3/uL Basophils # (0.00-0.10) 10*3/uL PT (10.0-12.5) sec INR (<1.2) APTT (22.0-30.0) sec VBG pH (7.31-7.41) VBG pCO2 (37-51) mmHg VBG HCO3 (24-28) mmol/L Sodium 140 (137-145) mmol/L Potassium 4.0 (3.5-5.1) mmol/L Chloride 98 (98-107) mmol/L Carbon Dioxide 34 H (22-30) mmol/L Anion Gap 8 mmol/L BUN 30 H (9-20) mg/dL Creatinine 0.61 L (0.66-1.25) mg/dL Est GFR (CKD-EPI)AfAm >90 (>60 ml/min/1.73 sqM) Est GFR (CKD-EPI)NonAf >90 (>60 ml/min/1.73 sqM) Glucose 176 H (74-99) mg/dL Lactic Ac Sepsis Rflx Plasma Lactic Acid Brian 2.3 H* (0.7-2.0) mmol/L Calcium 9.5 (8.4-10.2) mg/dL Total Bilirubin 0.8 (0.2-1.3) mg/dL AST 42 (17-59) U/L ALT 14 (4-49) U/L Alkaline Phosphatase 74 (38-126) U/L Troponin I 0.549 H* (0.000-0.034) ng/mL NT-Pro-B Natriuret Pep 83481 pg/mL Total Protein 6.9 (6.3-8.2) g/dL Albumin 4.2 (3.5-5.0) g/dL Urine Color Urine Appearance (Clear) Urine pH (5.0-8.0) Ur Specific [place] (1.001-1.035) Urine Protein (Negative) Urine Glucose (UA) (Negative) Urine Ketones (Negative) Urine Blood (Negative) Urine Nitrite (Negative) Urine Bilirubin (Negative) Urine Urobilinogen (<2.0) mg/dL Ur Leukocyte Esterase (Negative) Urine RBC (0-5) /hpf Urine WBC (0-5) /hpf Ur Squamous Epith Cells (0-4) /hpf Hyaline Casts (0-2) /lpf Urine Mucus (None) /hpf Urine Legionella Ag (Negative) 04/18/25 04/18/25 04/18/25 Range/Units 17:03 18:50 18:55 WBC (4.50-10.00) 10*3/uL RBC (4.40-5.60) 10*6/uL Hgb (13.0-17.0) g/dL Hct (39.6-50.0) % MCV (80.0-97.0) fL MCH (27.0-32.0) pg MCHC (32.0-37.0) g/dL Plt Count (140-440) 10*3/uL MPV (9.5-12.2) fL Immature Gran % (Auto) % Neutrophils % % Lymphocytes % % Monocytes % % Eosinophils % % Basophils % % Immature Gran # (0.00-0.04) 10*3/uL Neutrophils # (1.80-7.70) 10*3/uL Lymphocytes # (0.90-5.00) 10*3/uL Monocytes # (0.20-1.00) 10*3/uL Eosinophils # (0.04-0.35) 10*3/uL Basophils # (0.00-0.10) 10*3/uL PT (10.0-12.5) sec INR (<1.2) APTT (22.0-30.0) sec VBG pH (7.31-7.41) VBG pCO2 (37-51) mmHg VBG HCO3 (24-28) mmol/L Sodium (137-145) mmol/L Potassium (3.5-5.1) mmol/L Chloride (98-107) mmol/L Carbon Dioxide (22-30) mmol/L Anion Gap mmol/L BUN (9-20) mg/dL Creatinine (0.66-1.25) mg/dL Est GFR (CKD-EPI)AfAm (>60 ml/min/1.73 sqM) Est GFR (CKD-EPI)NonAf (>60 ml/min/1.73 sqM) Glucose (74-99) mg/dL Lactic Ac Sepsis Rflx Y Plasma Lactic Acid Brian (0.7-2.0) mmol/L Calcium (8.4-10.2) mg/dL Total Bilirubin (0.2-1.3) mg/dL AST (17-59) U/L ALT (4-49) U/L Alkaline Phosphatase (38-126) U/L Troponin I (0.000-0.034) ng/mL NT-Pro-B Natriuret Pep pg/mL Total Protein (6.3-8.2) g/dL Albumin (3.5-5.0) g/dL Urine Color Yellow Urine Appearance Clear (Clear) Urine pH 5.0 (5.0-8.0) Ur Specific [place] 1.028 (1.001-1.035) Urine Protein 1+ H (Negative) Urine Glucose (UA) Negative (Negative) Urine Ketones Negative (Negative) Urine Blood Negative (Negative) Urine Nitrite Negative (Negative) Urine Bilirubin Negative (Negative) Urine Urobilinogen 2.0 (<2.0) mg/dL Ur Leukocyte Esterase Negative (Negative) Urine RBC 1 (0-5) /hpf Urine WBC 2 (0-5) /hpf Ur Squamous Epith Cells <1 (0-4) /hpf Hyaline Casts 3 H (0-2) /lpf Urine Mucus Few H (None) /hpf Urine Legionella Ag Negative (Negative) 04/18/25 Range/Units 19:31 WBC (4.50-10.00) 10*3/uL RBC (4.40-5.60) 10*6/uL Hgb (13.0-17.0) g/dL Hct (39.6-50.0) % MCV (80.0-97.0) fL MCH (27.0-32.0) pg MCHC (32.0-37.0) g/dL Plt Count (140-440) 10*3/uL MPV (9.5-12.2) fL Immature Gran % (Auto) % Neutrophils % % Lymphocytes % % Monocytes % % Eosinophils % % Basophils % % Immature Gran # (0.00-0.04) 10*3/uL Neutrophils # (1.80-7.70) 10*3/uL Lymphocytes # (0.90-5.00) 10*3/uL Monocytes # (0.20-1.00) 10*3/uL Eosinophils # (0.04-0.35) 10*3/uL Basophils # (0.00-0.10) 10*3/uL PT (10.0-12.5) sec INR (<1.2) APTT (22.0-30.0) sec VBG pH (7.31-7.41) VBG pCO2 (37-51) mmHg VBG HCO3 (24-28) mmol/L Sodium (137-145) mmol/L Potassium (3.5-5.1) mmol/L Chloride (98-107) mmol/L Carbon Dioxide (22-30) mmol/L Anion Gap mmol/L BUN (9-20) mg/dL Creatinine (0.66-1.25) mg/dL Est GFR (CKD-EPI)AfAm (>60 ml/min/1.73 sqM) Est GFR (CKD-EPI)NonAf (>60 ml/min/1.73 sqM) Glucose (74-99) mg/dL Lactic Ac Sepsis Rflx Plasma Lactic Acid Brian 1.5 (0.7-2.0) mmol/L Calcium (8.4-10.2) mg/dL Total Bilirubin (0.2-1.3) mg/dL AST (17-59) U/L ALT (4-49) U/L Alkaline Phosphatase (38-126) U/L Troponin I (0.000-0.034) ng/mL NT-Pro-B Natriuret Pep pg/mL Total Protein (6.3-8.2) g/dL Albumin (3.5-5.0) g/dL Urine Color Urine Appearance (Clear) Urine pH (5.0-8.0) Ur Specific [place] (1.001-1.035) Urine Protein (Negative) Urine Glucose (UA) (Negative) Urine Ketones (Negative) Urine Blood (Negative) Urine Nitrite (Negative) Urine Bilirubin (Negative) Urine Urobilinogen (<2.0) mg/dL Ur Leukocyte Esterase (Negative) Urine RBC (0-5) /hpf Urine WBC (0-5) /hpf Ur Squamous Epith Cells (0-4) /hpf Hyaline Casts (0-2) /lpf Urine Mucus (None) /hpf Urine Legionella Ag (Negative) Disposition <Je Delgado - Last Filed: 04/18/25 15:46> Is patient prescribed a controlled substance at d/c from ED?: No <Cece Atkins - Last Filed: 04/27/25 01:02> Clinical Impression: Acute hypoxic respiratory failure, NSTEMI (non-ST elevated myocardial infarction), Acute CHF Disposition: ADMITTED IP TO THIS HOSP Condition: Fair
[2025-04-18 16:40] LABS: Basophils # (A) 0.01 10*3/uL (0.00-0.10); Basophils % (A) 0.1 %; Eosinophils # (A) 0.00 10*3/uL (0.04-0.35); Eosinophils % (A) 0.0 %; HCT 41.5 % (39.6-50.0); HGB 13.2 g/dL (13.0-17.0); Lymphocytes # (A) 0.35 10*3/uL (0.90-5.00); Lymphocytes % (A) 4.7 %; MCH 31.9 pg (27.0-32.0); MCHC 31.8 g/dL (32.0-37.0); MCV 100.2 fL (80.0-97.0); Monocytes # (A) 0.57 10*3/uL (0.20-1.00); Monocytes % (A) 7.7 %; Neutrophils # (A) 6.49 10*3/uL (1.80-7.70); Neutrophils % (A) 87.1 %; Platelet Count 155 10*3/uL (140-440); RBC 4.14 10*6/uL (4.40-5.60); RDW 15.6 % (11.5-14.5); WBC 7.45 10*3/uL (4.50-10.00)
[2025-04-18 16:52] LABS: ALT 14 U/L (4-49); AST 42 U/L (17-59); African American GFR (CKD) >90 (>60 ml/min/1.73 sqM); Albumin 4.2 g/dL (3.5-5.0); Alkaline Phosphatase 74 U/L (38-126); Anion Gap 8 mmol/L; Blood Urea Nitrogen 30 mg/dL (9-20); Calcium 9.5 mg/dL (8.4-10.2); Carbon Dioxide 34 mmol/L (22-30); Chloride 98 mmol/L (98-107); Glucose 176 mg/dL (74-99); Non-African American GFR(CKD) >90 (>60 ml/min/1.73 sqM); Potassium 4.0 mmol/L (3.5-5.1); Sodium 140 mmol/L (137-145); Total Protein 6.9 g/dL (6.3-8.2)
[2025-04-18 17:01] LABS: NT-Pro-B-Type Natriuretic Pept 12500 pg/mL
[2025-04-18 17:02] LABS: INR 1.0 (<1.2); Partial Thromboplastin Time 22.0 sec (22.0-30.0); Prothrombin Time 11.4 sec (10.0-12.5)
--- NOTE | 2025-04-18 17:02 | XR ---
EXAMINATION TYPE: XR chest 2V DATE OF EXAM: 04/18/2025 4:57 PM COMPARISON: None TECHNIQUE: XR chest 2V Frontal and lateral views of the chest. CLINICAL INDICATION:Male, 84 years old with history of Weakness; FINDINGS: Lungs/Pleura: No sizable pleural effusion or pneumothorax. Bibasilar patchy airspace opacities. Pulmonary vascularity: Unremarkable. Heart/mediastinum: Cardiomediastinal silhouette is unremarkable. Musculoskeletal: No acute osseous pathology. IMPRESSION: Bibasilar patchy airspace opacities concerning for pneumonia. [facility], , 04/18/2025 4:59 PM
[2025-04-18 17:14] LABS: VBG HCO3 32.0 mmol/L (24-28); VBG PCO2 58.0 mmHg (37-51); VBG PH 7.35 (7.31-7.41)
[2025-04-18 19:07] LABS: Bilirubin,Urine Negative (Negative); Blood,Urine Negative (Negative); Color,Urine Yellow; Glucose,Urine (UA) Negative (Negative); Hyaline Casts,Urine 3 /lpf (0-2); Ketones,Urine Negative (Negative); Leukocyte Esterase,Urine Negative (Negative); Mucus,Urine Few /hpf; Nitrite,Urine Negative (Negative); PH, Urine 5.0 (5.0-8.0); Protein,Urine 1+ (Negative); RBC,Urine 1 /hpf (0-5); Specific Gravity,Urine 1.028 (1.001-1.035); Squamous Epithelial Cell,Urine <1 /hpf (0-4); Urobilinogen,Urine 2.0 mg/dL (<2.0); WBC,Urine 2 /hpf (0-5)
--- NOTE | 2025-04-18 19:09 | CT ---
EXAMINATION TYPE: CT brain cspine wo con CT DLP: 1300.9 mGycm, Automated exposure control for dose reduction was used. DATE OF EXAM: 04/18/2025 6:44 PM COMPARISON: None. CLINICAL INDICATION:Male, 84 years old with history of fall; possible fall TECHNIQUE: Brain: Multiple axial CT images of the brain were obtained without IV contrast. Cspine: Axial CT images from the skull base to the inferior aspect of T2 we obtained without intraven ous contrast. Coronal and sagittal reformatted images were also reviewed. . FINDINGS: Brain: Extra-axial spaces: No abnormal extra-axial fluid collections. Ventricular system: Dilatation in proportion to cerebral atrophy. Cerebral parenchyma: Cerebral atrophy. No acute intraparenchymal hemorrhage or mass effect. The junior -white junction is well differentiated. Scattered hypoattenuating areas are seen within the white mat ter. Small area of encephalomalacia suggested in the inferior anterior left frontal lobe. Cerebellum: Remote lacunar injury is noted in the left cerebellar hemisphere. Mass effect: No evidence of midline shift. Intracranial vasculature: Atherosclerotic calcifications of the intracranial vessels. Soft tissues: Normal. Calvarium/osseous structures: No acute depressed skull fracture. Paranasal sinuses and mastoid air cells: Clear. Visualized orbits: Bilateral aphakia. Cervical spine: Motion artifact on exam degrades images limiting evaluation. Fracture: There is an age indeterminate compression deformity involving the superior endplate of T1 v ertebral body with approximately 25% body height loss and no retropulsion at the level.. Osseous structures: Multilevel disc degenerative changes are seen most pronounced in the upper and mi d cervical spine. Vertebral alignment: Grade 1 anterolisthesis of C2 on C3. Spinal canal/Neural Foramina: Multilevel disc osteophyte complexes are seen most pronounced at C3-C4 where there is moderate spinal canal stenosis. No evidence of significant spinal canal narrowing. No evidence for significant neural foraminal stenosis. Neck soft tissues: Prevertebral soft tissues are within normal limits. Other: The airway is patent. There is diffuse advanced centrilobular and paraseptal emphysematous noel nges noted. Along the anterior lateral aspect of the right apex there is linear oriented air seen in the area of the pleura. IMPRESSION: 1. No acute intracranial process. 2. Nonspecific white matter changes, likely secondary to chronic small vessel ischemic disease. Addit ional remote supratentorial and infratentorial injuries. 3. Age-indeterminate compression deformity of T1 vertebral body superior endplate with less than 50% body height loss and no retropulsion seen. Correlate with point tenderness. 4. Linear foci of air seen in the pleural/subpleural right apex may relate to a combination of artifa ct and paraseptal emphysematous changes however findings could relate to a possible trace pneumothora x given history of trauma. Recommend close clinical follow-up and short-term chest x-ray to ensure no progression of this finding. [facility], , 04/18/2025 7:07 PM
[2025-04-18] MEDS ORDERED: PNEUMONIA PROTOCOL UTILIZED 1 EACH MISC PO PRN (20:02)
[2025-04-18] MEDS: diphenhydrAMINE 50 MG/ML 1 ML VIAL IVP STA (20:43)
[2025-04-18] MEDS: HEPARIN SOD,PORK IN 0.45% NACL 25,000 UNIT in 0.45% NACL 1 250ML.BAG IV SCH (20:48)
[2025-04-18] MEDS: ASPIRIN 81 MG PO STA (21:31)
[2025-04-18] MEDS: AZITHROMYCIN 500 MG in SODIUM CHLORIDE 0.9% 250 ML IVPB STA (21:32)
[2025-04-18] MEDS: FUROSEMIDE 10 MG/ML 4 ML VIAL IV STA (23:33)
[2025-04-18] MEDS: IPRATROPIUM-ALBUTEROL 3 ML NEB INHALATION SCH (23:35)
[2025-04-18 23:47] LABS: ABG HCO3 36 mmol/L (21-25); ABG PO2 233 mmHg (83-108); ABG TCO2 39 mmol/L (19-24); Allen Test Performed? Yes
[2025-04-19] LABS: ABG PCO2 95 mmHg (35-45); ABG PH 7.19 (7.35-7.45)
--- NOTE | 2025-04-19 00:18 | XR ---
EXAMINATION TYPE: XR chest 1V portable DATE OF EXAM: 04/19/2025 12:08 AM COMPARISON: Chest radiographs from 04/18/2025 TECHNIQUE: XR chest 1V portable Portable AP radiograph of the chest. CLINICAL INDICATION:Male, 84 years old with history of respiratory distress; FINDINGS: Patient is rotated which limits evaluation. Lungs/Pleura: No pneumothorax. No sizable pleural effusion. Redemonstration of bibasilar patchy airs pace opacities with right greater than left. Pulmonary vascularity: Unremarkable. Heart/mediastinum: Cardiomediastinal silhouette is unremarkable. Musculoskeletal: No acute osseous pathology. Other findings: Gaseous distention of the bowel in the upper abdomen. IMPRESSION: Redemonstration of bibasilar patchy airspace opacities with right greater than left. This is again co ncerning for pneumonia. [facility], , 04/19/2025 12:16 AM
[2025-04-19] MEDS: methylPREDNISolone SOD SUCCI 40 MG/ML 1 ML VIAL IV SCH (03:28)
--- NOTE | 2025-04-19 04:57 | P.CNPUL ---
History of Present Illness Consult date: 04/19/25 Requesting physician: Cece Atkins Reason for consult: hypoxemia, abnormal CXR/CT Chief complaint: Fall, weakness, shortness of breath, cough History of present illness: Patient currently being evaluated in the emergency department, he is comatose unable to provide information. According to the emergency department note, came in with increased generalized weakness. He had a fall. No reported head trauma. Noted some increased sputum production, shortness of breath, and voice changes. Reportedly, does not take any medications at home. Workup in the ED including CT brain and C-spine which did not show any acute intracranial process. Some nonspecific white matter changes, additional remote supratentorial and infratentorial injuries. Age-indeterminate compression deformity of T1 ve rtebral body with less than 50% body. Height loss. No retropulsion. Biapical lung seen with diffuse emphysematous changes. Linear foci of air seen in the left pleural/subpleural right apical area, likely artifact. No discernible pneumothorax seen. No chest CT was performed. There was a chest x-ray showing bibasilar airspace opacities right greater than left. Concerning for pneumonia. CBC unremarkable for leukocytosis. Hemoglobin 13.2 g/dL. Platelets 155. CMP with sodium 140, potassium 4, chloride 98, serum bicarb 34, BUN 30, creatinine 0.61, glucose 176. 3.3 is down to 1.5. Troponin 0.55. NT proBNP significant elevated 12,500. Repeat EKG showing normal sinus rhythm, no acute ST segment elevations or T wave inversions. Patient previously systemically heparinized. Also started on combination of empiric antibiotics in the form azithromycin and Rocephin. Also previously given some IV Benadryl. Currently, evaluating this patient Emergency Department. He is comatose. Unresponsive even to painful stimuli. On 15 L NRB. I placed the patient on BiPAP. Pressure settings 15/5 and FiO2 to be titrated. ABG drawn including a PaO2 of 233, pCO2 95, pH of 7.19, consistent with severe hypercapnic respiratory failure. He is a DNR/DO NOT INTUBATE, this was confirmed by his family. Review of Systems ROS unobtainable: due to mental status Past Medical History Past Medical History: Diabetes Mellitus, Eye Disorder, Hyperlipidemia, Osteoarthritis (OA), Pneumonia Additional Past Medical History / Comment(s): Hx pneumonia X3, last 5 yrs ago, hyperlipemia WNL on medication, Diabetes resolved 4 yrs ago after diet changes. Current bilateral cataracts. History of Any Multi-Drug Resistant Organisms: None Reported Past Surgical History: Hernia Repair Additional Past Surgical History / Comment(s): right cataract removed 06-01-17 Past Anesthesia/Blood Transfusion Reactions: No Reported Reaction Past Psychological History: Depression Smoking Status: Never smoker - Past Family History Father Family Medical History: Cancer Additional Family Medical History / Comment(s): Stomach Cancer Medications and Allergies Home Medications Medication Instructions Recorded Confirmed Type No Known Home Medications 04/18/25 04/18/25 History Allergies Allergy/AdvReac Type Severity Reaction Status Date / Time No Known Allergies Allergy Verified 04/18/25 19:49 Physical Exam Vitals: Vital Signs Temp Pulse Resp BP Pulse Ox FiO2 04/19/25 01:00 91 20 95/59 92 L 04/19/25 00:34 97.4 F L 87 20 86/61 91 L 04/18/25 23:51 40 04/18/25 23:45 87 04/18/25 23:35 85 04/18/25 23:10 96 04/18/25 23:00 112 H 22 106/67 04/18/25 21:52 98 04/18/25 21:49 113 H 22 110/68 85 L 04/18/25 19:52 101 H 22 112/71 90 L 04/18/25 18:16 105 H 22 107/64 93 L 04/18/25 17:17 106 H 20 120/78 95 04/18/25 16:48 105 H 93 L 04/18/25 16:34 105 H 22 118/78 88 L 04/18/25 16:10 86 L 04/18/25 15:49 99.1 F 108 H 16 100/63 Intake and Output 04/18/25 04/18/25 04/19/25 14:59 22:59 06:59 Other: Weight 52.163 kg GENERAL EXAM: Comatose, 85-year-old male, unresponsive to even painful stimuli. Placed patient on BiPAP with settings 15/5 and FiO2 40%. Generating tidal labs around 350 to 400 mL. Sitter in the room. HEAD: Normocephalic and atraumatic EYES: Normal reaction of pupils, equal size. NOSE: Clear with pink turbinates. THROAT: No erythema or exudates. NECK: No masses, no JVD. CHEST: No chest wall deformity. LUNGS: Equal air entry with no crackles, wheeze, rhonchi or dullness. CVS: S1 and S2 normal with no audible murmur, regular rhythm. No extra heart sounds ABDOMEN: No hepatosplenomegaly, active bowel sounds, no guarding or rigidity. SPINE: No scoliosis or deformity SKIN: No rashes CENTRAL NERVOUS SYSTEM: Comatose, does not withdraw to painful stimuli in all 4 extremities. EXTREMITIES: There is no peripheral edema, clubbing, or cyanosis. Peripheral pulses are intact. Results - Laboratory Findings CBC and BMP: 04/19/25 04:49 04/18/25 16:33 ABG ABG pH 7.19 (7.35-7.45) L* 04/18/25 23:44 ABG pCO2 95 mmHg (35-45) H* 04/18/25 23:44 ABG pO2 233 mmHg (83-108) H 04/18/25 23:44 ABG O2 Saturation 99.6 % (94-97) H 04/18/25 23:44 PT/INR, D-dimer PT 11.4 sec (10.0-12.5) 04/18/25 16:33 INR 1.0 (<1.2) 04/18/25 16:33 Abnormal lab findings: Abnormal Labs 04/18/25 04/18/25 04/18/25 16:25 16:33 16:33 RBC 4.14 L MCV 100.2 H MCHC 31.8 L MPV 9.4 L Lymphocytes # 0.35 L Eosinophils # 0.00 L ABG pH ABG pCO2 ABG pO2 ABG HCO3 ABG Total CO2 ABG O2 Saturation VBG pCO2 58 H VBG HCO3 32 H Carbon Dioxide 34 H BUN 30 H Creatinine 0.61 L Glucose 176 H Plasma Lactic Acid Brian Troponin I Urine Protein Hyaline Casts Urine Mucus 04/18/25 04/18/25 04/18/25 16:33 16:33 18:55 RBC MCV MCHC MPV Lymphocytes # Eosinophils # ABG pH ABG pCO2 ABG pO2 ABG HCO3 ABG Total CO2 ABG O2 Saturation VBG pCO2 VBG HCO3 Carbon Dioxide BUN Creatinine Glucose Plasma Lactic Acid Brian 2.3 H* Troponin I 0.549 H* Urine Protein 1+ H Hyaline Casts 3 H Urine Mucus Few H 04/18/25 23:44 RBC MCV MCHC MPV Lymphocytes # Eosinophils # ABG pH 7.19 L* ABG pCO2 95 H* ABG pO2 233 H ABG HCO3 36 H ABG Total CO2 39 H ABG O2 Saturation 99.6 H VBG pCO2 VBG HCO3 Carbon Dioxide BUN Creatinine Glucose Plasma Lactic Acid Brian Troponin I Urine Protein Hyaline Casts Urine Mucus - Diagnostic Findings Chest x-ray: image reviewed Assessment and Plan Assessment: Acute hypoxemic and hypercapnic respiratory failure, placed on BiPAP, chest x- ray showing bibasilar airspace opacities right greater than left. Concerning for pneumonia. No pleural effusions. No evidence of pneumothorax. COPD/emphysema Acute non-ST elevation MS, systemically heparinized Fall, CT brain and C-spine which did not show any acute intracranial process. Some nonspecific white matter changes, additional remote supratentorial and infratentorial injuries. Age-indeterminate compression deformity of T1 vertebral body with less than 50% body. Height loss. No retropulsion. Biapical lung seen with diffuse emphysematous changes. Linear foci of air seen in the left pleural/subpleural right apical area, likely artifact. No discernible pneumothorax seen Age-indeterminate T1 vertebral body compression deformity History of hyperlipidemia Plan: Continue on BiPAP with current settings Sitter is at bedside Obtain repeat ABG Patient has a DO NOT RESUSCITATE/DO NOT INTUBATE status, confirmed with family Chest x-ray reviewed, no evidence of pneumothorax. Bibasilar infiltrates concerning for pneumonia Switch patient to Zosyn for possible aspiration Blood culture sent. Sputum culture to be collected. urine Legionella antigen sent. One time dose Lasix 40 mg given Currently systemically heparinized Monitor troponins Echocardiogram to follow Cardiology also consulted Will continue to follow, additional recommendations forthcoming. I have personally seen and examined the patient, performed the documentation and the assessment and plan as written. Number of minutes spent on the visit:20 This patient is being seen in joint evaluation along with the nurse practitioner. The patient was seen and evaluated in the emergency department. The patient h has developed bilateral pneumonia along with COPD exacerbation. The patient was quite short of breath at time of admission and the patient was placed on a BiPAP and the patient is currently on a BiPAP pressure of 15/5 with an FiO2 of 40%. He is a DNR/DNI CODE STATUS. Aspiration pneumonia was suspected and the patient was covered with IV Zosyn. Initial blood gas showed significant respiratory acidosis with a pH of 7.19 with a PCO2 of 95 and a pO2 of 233 and based on that, the patient was placed on a BiPAP. Procalcitonin level is low. proBNP level is elevated at 7590. White cell count is 5.9 with a heme of 13.4. Subsequently, the patient was taken off the BiPAP and as the patient improved, the patient was transition to 4 L of oxygen by nasal cannula. He has been having constitutional symptoms. He has been having ongoing hoarseness and weight loss and the patient's voice has been quite hoarse for the past 4 to 6 months. Based on that, a CAT scan of the neck and the chest was ordered to further characterize those abnormalities and rule out any underlying neck or intrathoracic malignancy. Patient was adamant in going home. He was convinced to stay in the hospital for now pending further workup. Son is at the bedside. Meanwhile, we will continue the bronchodilators, will continue steroids and antibiotics. Will make further recommendations based on the results of the CAT scan of the chest and the neck. This evaluation was done at 35 minutes. Time with Patient: Greater than 30
[2025-04-19 05:11] LABS: HCT 42.9 % (39.6-50.0); HGB 13.4 g/dL (13.0-17.0); MCH 31.7 pg (27.0-32.0); MCHC 31.2 g/dL (32.0-37.0); MCV 101.4 fL (80.0-97.0); Platelet Count 134 10*3/uL (140-440); RBC 4.23 10*6/uL (4.40-5.60); RDW 15.8 % (11.5-14.5); WBC 5.95 10*3/uL (4.50-10.00)
[2025-04-19 05:27] LABS: INR 1.1 (<1.2); Partial Thromboplastin Time 33.5 sec (22.0-30.0); Prothrombin Time 11.6 sec (10.0-12.5)
[2025-04-19] MEDS: HEPARIN SODIUM 1,000 UN/ML (10ML VL) IV PRN (06:12)
[2025-04-19 07:34] LABS: Lymphocytes # (M) 0.42 k/uL (1.0-4.8); Monocytes # (M) 0.36 k/uL (0-1.0); Neutrophils # (M) 5.17 k/uL (1.3-7.7); Neutrophils % (M) 57 %; Total Cells Counted 100
[2025-04-19] MEDS: PIPERACILLIN-TAZOBACTAM 3.375 GM in SODIUM CHLORIDE 0.9% 100 ML IVPB SCH (07:57)
[2025-04-19] MEDS: BUDESONIDE 1 MG/2 ML NEBU INHALATION SCH (08:16)
[2025-04-19] MEDS: FORMOTEROL FUMARATE 20 MCG/2 ML NEBU INHALATION SCH (08:16)
--- NOTE | 2025-04-19 09:14 | XR ---
EXAMINATION TYPE: XR chest 1V portable DATE OF EXAM: 04/19/2025 8:44 AM COMPARISON: None CLINICAL INDICATION: Male, 84 years old with history of pneumonia, , FINDINGS: Heart normal size. Hyperinflation. Prominent patchy bibasilar airspace opacities along with a small r ight pleural effusion. Suspect old right-sided rib fractures. IMPRESSION: COPD with bibasilar airspace disease and small right pleural effusion. Correlate for infectious or as piration pneumonitis. [facility], Workstation: [facility], 04/19/2025 9:12 AM
[2025-04-19] MEDS: LACTATED RINGERS 500 ML IV ONE (09:58)
--- NOTE | 2025-04-19 10:37 | P.CRDCN ---
History of Present Illness History of present illness: HISTORY OF PRESENT ILLNESS: This is a 84-year-old male with a past medical history significant for COPD and hyperlipidemia. Patient does not follow with a food and beverage coordinator. We have been asked to see the patient in consultation for elevated troponins. Patient examined at the bedside in the emergency room. Patient is admitted to the hospital secondary to respiratory failure and pneumonia. Patient was found to have elevated troponins. Patient without complaints of chest pain or pressure. He was started on IV heparin. REVIEW OF SYSTEMS: At the time of my exam: CONSTITUTIONAL: Denies fever or chills. HEENT: Denies blurred vision, vision changes, or eye pain. Denies hemoptysis CARDIOVASCULAR: Denies chest pain. Denies orthopnea. Denies PND. Denies palpitations RESPIRATORY: Denies shortness of breath. GASTROINTESTINAL: Denies abdominal pain. Denies nausea or vomiting. HEMATOLOGIC: Denies bleeding disorders. GENITOURINARY: Denies any blood in urine. SKIN: Denies pruitis. Denies rash. PHYSICAL EXAM: VITAL SIGNS: Reviewed. GENERAL: Well-developed in no acute distress. HEENT: Head is normocephalic. Pupils are equal, round. Sclerae anicteric. Mucous membranes of the mouth are moist. Neck supple. No JVD or thyromegaly LUNGS: Respirations even and unlabored. Lungs diminished with bilateral rhonchi HEART: Regular rate and rhythm. S1 and S2 heard. Distant heart sounds ABDOMEN: Soft. Nondistended. Nontender. EXTREMITIES: Normal range of motion. No clubbing or cyanosis. Peripheral pulses intact. No lower extremity edema NEUROLOGIC: Lethargic ASSESSMENT: Acute hypoxic and hypercapnic respiratory failure Bilateral pneumonia History of COPD Elevated troponins, type II TN secondary to oxygen supply/demand mismatch History of hyperlipidemia PLAN: An acute coronary event has been ruled out Discontinue IV heparin Add aspirin and Lipitor No further inpatient recommendations from a cardiac standpoint We will sign off. Please reconsult if needed. Nurse practitioner note has been reviewed by physician. Signing provider agrees with the documented findings, assessment, and plan of care documented by ORIENTAL MEDICINE PRACTITIONER as a scribe. Past Medical History Past Medical History: Diabetes Mellitus, Eye Disorder, Hyperlipidemia, Osteoarthritis (OA), Pneumonia Additional Past Medical History / Comment(s): Hx pneumonia X3, last 5 yrs ago, hyperlipemia WNL on medication, Diabetes resolved 4 yrs ago after diet changes. Current bilateral cataracts. History of Any Multi-Drug Resistant Organisms: None Reported Past Surgical History: Hernia Repair Additional Past Surgical History / Comment(s): right cataract removed 06-01-17 Past Anesthesia/Blood Transfusion Reactions: No Reported Reaction Past Psychological History: Depression Smoking Status: Never smoker - Past Family History Father Family Medical History: Cancer Additional Family Medical History / Comment(s): Stomach Cancer Medications and Allergies Home Medications Medication Instructions Recorded Confirmed Type No Known Home Medications 04/18/25 04/18/25 History Allergies Allergy/AdvReac Type Severity Reaction Status Date / Time No Known Allergies Allergy Verified 04/18/25 19:49 Physical Exam Vitals: Vital Signs Temp Pulse Resp BP Pulse Ox FiO2 04/19/25 10:02 98 23 102/72 95 04/19/25 08:41 94 04/19/25 08:31 90 04/19/25 08:30 88 04/19/25 08:21 40 04/19/25 08:20 90 04/19/25 07:54 94 18 90/57 94 L 04/19/25 06:00 97.8 F 99 20 88/65 94 L 04/19/25 05:00 97.9 F 97 21 91/60 94 L 04/19/25 04:12 90 04/19/25 04:00 87 20 98/71 96 04/19/25 03:57 89 40 04/19/25 03:00 89 18 85/65 94 L 04/19/25 02:00 102 H 20 102/74 91 L 04/19/25 01:00 91 20 95/59 92 L 04/19/25 00:34 97.4 F L 87 20 86/61 91 L 04/18/25 23:51 40 04/18/25 23:45 87 04/18/25 23:41 40 04/18/25 23:35 85 100 04/18/25 23:10 96 04/18/25 23:00 112 H 22 106/67 04/18/25 21:52 98 04/18/25 21:49 113 H 22 110/68 85 L 04/18/25 19:52 101 H 22 112/71 90 L 04/18/25 18:16 105 H 22 107/64 93 L 04/18/25 17:17 106 H 20 120/78 95 04/18/25 16:48 105 H 93 L 04/18/25 16:34 105 H 22 118/78 88 L 04/18/25 16:10 86 L 04/18/25 15:49 99.1 F 108 H 16 100/63 Intake and Output 04/18/25 04/19/25 04/19/25 22:59 06:59 14:59 Intake Total 58.74 Output Total 550 Balance -491.26 Intake: Intake, IV Titration 58.74 Amount Heparin Sod,Pork in 0.45% 58.74 NaCl 25,000 unit In 0.45 % NaCl 1 250ml.bag @ 12 UNITS/KG/HR 6.26 mls/hr IV .Q24H [facility] Rx#: [id number] Output: Urine 550 Other: Weight 52.163 kg Results 04/19/25 04:49 04/18/25 16:33 Cardiac Enzymes 04/18/25 04/18/25 04/19/25 Range/Units 16:33 16:33 04:49 AST 42 (17-59) U/L Troponin I 0.549 H* 0.537 H* (0.000-0.034) ng/mL Coagulation 04/18/25 04/19/25 Range/Units 16:33 04:49 PT 11.4 11.6 (10.0-12.5) sec APTT 22.0 33.5 H (22.0-30.0) sec CBC 04/18/25 04/19/25 Range/Units 16:33 04:49 WBC 7.45 5.95 (4.50-10.00) 10*3/uL RBC 4.14 L 4.23 L (4.40-5.60) 10*6/uL Hgb 13.2 13.4 (13.0-17.0) g/dL Hct 41.5 42.9 (39.6-50.0) % Plt Count 155 134 L (140-440) 10*3/uL Comprehensive Metabolic Panel 04/18/25 Range/Units 16:33 Sodium 140 (137-145) mmol/L Potassium 4.0 (3.5-5.1) mmol/L Chloride 98 (98-107) mmol/L Carbon Dioxide 34 H (22-30) mmol/L BUN 30 H (9-20) mg/dL Creatinine 0.61 L (0.66-1.25) mg/dL Glucose 176 H (74-99) mg/dL Calcium 9.5 (8.4-10.2) mg/dL AST 42 (17-59) U/L ALT 14 (4-49) U/L Alkaline Phosphatase 74 (38-126) U/L Total Protein 6.9 (6.3-8.2) g/dL Albumin 4.2 (3.5-5.0) g/dL Current Medications Generic Name Dose Route Start Last Admin Trade Name Freq PRN Reason Stop Dose Admin Albuterol/Ipratropium 3 ml 04/19/25 00:00 04/19/25 08:16 Ipratropium-Albuterol 3 Ml Neb INHALATION 3 ml RT-Q4H STAR Administration Budesonide 1 mg 04/19/25 08:00 04/19/25 08:16 Budesonide 1 Mg/2 Ml Nebu INHALATION 1 mg RT-BID STAR Administration Formoterol Fumarate 20 mcg 04/19/25 08:00 04/19/25 08:16 Formoterol Fumarate 20 Mcg/2 Ml Nebu INHALATION 20 mcg RT-BID STAR Administration Heparin Sodium (Porcine) 0 unit 04/18/25 20:09 04/19/25 06:12 Heparin Sodium 1,000 Un/Ml (10ml Vl) IV 1,300 unit PER PROTOCOL PRN Administration Low PTT Protocol Piperacillin Sod/Tazobactam 100 mls @ 25 mls/hr 04/19/25 08:00 04/19/25 07:57 Sod 3.375 gm/ Sodium Chloride IVPB 25 mls/hr Q8HR STAR Administration Protocol Methylprednisolone Sodium Succinate 40 mg 04/19/25 03:00 04/19/25 03:28 Methylprednisolone Sod Succi 40 Mg/Ml 1 Ml Vial IV 40 mg Q12H STAR Administration Miscellaneous Information 1 each 04/18/25 20:02 Pneumonia Protocol Utilized 1 Each Misc PO ONCE PRN Per Protocol Intake and Output 04/18/25 04/19/25 04/19/25 22:59 06:59 14:59 Intake Total 58.74 Output Total 550 Balance -491.26 Intake: Intake, IV Titration 58.74 Amount Heparin Sod,Pork in 0.45% 58.74 NaCl 25,000 unit In 0.45 % NaCl 1 250ml.bag @ 12 UNITS/KG/HR 6.26 mls/hr IV .Q24H [facility] Rx#: [id number] Output: Urine 550 Other: Weight 52.163 kg 04/19/25 04:49 04/18/25 16:33
[2025-04-19] MEDS: ENOXAPARIN 40 MG/0.4 ML SYRINGE SQ SCH (12:00)
--- NOTE | 2025-04-19 13:26 | CT ---
EXAMINATION TYPE: CT neck chest w con CT DLP: 334.6 mGycm, Automated exposure control for dose reduction was used. DATE OF EXAM: 04/19/2025 1:10 PM COMPARISON: Chest radiograph 04/19/2025, CT bases 5 04/18/2025. CLINICAL INDICATION:Male, 84 years old with history of weakned/muffled voice;, weakened / muffled voi ce TECHNIQUE: Standard enhanced CT of the neck and chest. Axial sections with coronal and sagittal refo rmats were obtained. Contrast used:100 ml mL of Isovue 300 with IV Contrast Oral contrast used: None FINDINGS: BRAIN: Visualized portions are grossly unremarkable. ORBITS: Bilateral aphakia. SINUSES: Grossly unremarkable. SPACES OF THE NECK: Clear and symmetric. MUSCULOSKELETAL: No acute osseous pathology. Grade 1 retrolisthesis of C3 and C4. LYMPH NODES: No enlarged lymph nodes are identified. VASCULAR STRUCTURES: Patent with atherosclerotic plaque of the internal carotid arteries at the bifur cation. THORACIC INLET/AIRWAY: Airway is patent. The lung apices are clear. SOFT TISSUES/THYROID: Thyroid and remainder of the soft tissues are unremarkable. OTHER: none. LUNGS/ PLEURA: No pneumothorax. Moderate centrilobular emphysematous changes. Small bilateral pleural effusions. Bilateral lower lobe patchy consolidative opacities some atelectasis. AIRWAY: Patent and unremarkable. HEART: Prominent size. . No pericardial effusion. Moderate coronary arterial calcifications. MEDIASTINUM: Enlarged subcarinal lymph node measuring 1.8 cm short axis. Additional smaller enlarged paratracheal lymph nodes including a right paratracheal lymph node measuring up to 1.3 cm. 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 Moderate aortic valvular calcifications. E ctasia of the ascending thoracic aorta measuring 3.9 cm. Mild atherosclerotic calcification of the ao rta and its branches. No central pulmonary artery embolism. MUSCULOSKELETAL: No acute osseous abnormalities. Remote posterior healed right-sided rib fractures. D FAITH of the mid to lower thoracic spine. SOFT TISSUES/LYMPH NODES: Unremarkable. LOWER NECK: No significant findings. UPPER ABDOMEN: No significant findings. IMPRESSION: 1. Small bilateral pleural effusions with bilateral lower lobe patchy consolidative opacities consist ent with pneumonia. 2. Mediastinal adenopathy likely related to #1. 3. Moderate emphysematous changes. 4. 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 Additionally there is ectasia of the ascending thorac ic aorta measuring up to 3.9 cm. [facility], , 04/19/2025 1:24 PM
--- NOTE | 2025-04-19 14:38 | XR ---
EXAMINATION TYPE: XR abdomen 2V DATE OF EXAM: 04/19/2025 2:21 PM COMPARISON: 04/19/2025. CLINICAL INDICATION: Male, 84 years old with history of dilated bowel loops; [facility] TECHNIQUE: Two views of the abdomen were obtained. FINDINGS: Scattered gaseous dilation of small bowel large bowel. The bowel gas pattern is nonspecifi c without dilated loops of small or large bowel. . Fecal material and gas are demonstrated throughout the colon and rectum. There is no evidence for organomegaly or pneumoperitoneum. No acute osseous p rocess. No abnormal calcifications are present. Concepcion catheter in the bladder lumen. Excreted IV contrast seen within the renal collecting system yanci aterally. IMPRESSION: Dilated loops of gas-filled bowel correlate for ileus. [facility], , 04/19/2025 2:36 PM
[2025-04-19] MEDS ORDERED: DEXTROSE 50% SYRINGE 50 ML IVP PRN ×2 (15:20)
--- NOTE | 2025-04-19 15:27 | P.HPIM ---
History of Present Illness H&P Date: 04/19/25 Patient is a 84-year-old male with diabetes, hyperlipidemia, osteoarthritis, depression here for evaluation of generalized weakness. Patient reported to have a fall but did not hit his head. He was noted to have worsening shortness of breath with associated increased sputum production, voice changes that has been going on for 4-5 months. He did not take any home meds or alleviating treatments for his symptoms. He denied chest pain, palpitations, extremity swelling, focal weakness, fever, chills, weight loss, nausea, vomiting, diarrhea, constipation, abdominal pain. He is able to ambulate and do his own ADLs at baseline. He lives on his own. On admission: Vitals: 99.1 Fahrenheit, KS 108, RR 16, BP 100/63, O2 saturation 86% on room air and has improved to 95% on 5 L nasal cannula Labs: WBC 7.4, hemoglobin 13.2, MCV 100.2, platelet count 155, sodium 140, potassium 4, bicarb 34, BUN 30, creatinine 0.6, glucose 176, lactic acid 2.3, troponin 0.54, proBNP 12 500, calcium 9.5, liver enzymes within normal limits. Urinalysis was negative for nitrites, negative leukocyte esterase, negative glucose, negative ketones, +1 protein.. Imaging: Initial chest x-ray showed bibasilar patchy airspace opacities concerning for pneumonia, pleural effusions noted. Head and cervical spine CT showed no acute intracranial process, nonspecific white matter changes likely secondary to chronic small vessel ischemic disease, age-indeterminate compression deformity of T1 vertebral body, linear foci of air seen in the pleural subpleural right apex concerning for artifact and paraseptal emphysematous changes EKG independently interpreted showed sinus tachycardia with a rate of 9104 bpm, no ST-T changes, RVH noted, QTc 398 MS. ED documentation reviewed. Review of systems: Pertinent positives and negatives as discussed in HPI, a complete review of systems was performed and all other systems are negative. Physical examination: Vital signs reviewed General: non toxic, no distress, appears at stated age, thin body habitus, nasal cannula, hoarse voice Derm: no unusual rashes/lesions, warm Head: atraumatic, normocephalic, symmetric Eyes: EOMI, anicteric sclera, pupils equal round reactive to light ENT: Nose and ears atraumatic Neck: No cervical lymphadenopathy, trachea midline, supple Mouth: no lip lesion, mucus membranes moist Cardiovascular: S1S2 reg, no murmur Lungs: Bibasilar coarse Rales, no rhonchi, no accessory muscle use Abdominal: soft, nondistended, nontender to palpation, no guarding Ext: muscle strength 5 out of 5 in all 4 extremities grossly, no gross muscle atrophy, no contractures, positive dorsalis pedis pulse bilateral, no edema Neuro: CN II-XI grossly intact, no gross focal neuro deficits Psych: Alert and oriented x 3, appropriate affect and mood Assessment/Plan: The patient is admitted with an anticipated greater than 2 midnight stay for evaluation of acute respiratory failure with imaging concerning for pneumonia Active: #Acute hypoxic hypercapnic respiratory failure, BiPAP dependent, concerning for pneumonia #Possible COPD due to CO2 retention #NSTEMI type II secondary to above Initial chest x-ray showed bibasilar patchy airspace opacities concerning for pneumonia. Repeat chest xray today showed hyperinflation concerning for COPD, bibarilar airspace disease and small right pleural effusion ABG shows pH of 7.19 and PaCO2 of 95, PO236 on FiO2 100% Supportive oxygen as needed Received one-time dose Zithromax 500 mg p.o. and Rocephin 2 g IVPB in the ED Placed on Zosyn IVPB by pulmonology Blood culture ordered Legionella antigen ordered Procalcitonin ordered Monitor CBC Pulmonology consulted in the ED. Lasix IV given once. Initiated Solu-Medrol 60 mg IV every 12 hours # Macrocytosis MCV 100.2 Check B12 and folate Chronic Conditions: #Diabetes mellitus Check Hemoglobin A1c Glucose Accu-Cheks ACHS Initiate Insulin sliding scale ACHS Monitor for hypoglycemia #Hyperlipidemia #Osteoarthritis #Depression No home meds at this time DVT ppx: Lovenox 40 mg subcu daily GI ppx: Protonix p.o. daily CODE STATUS: DNR Discussed with: Patient and son Anticipated discharge place: Pending clinical course Shasta Smith MD PGY-1 Internal Medicine Dictation was produced using [employer] dictation software. please excuse any grammatical, word or spelling errors. Attestation: I have seen and examined this patient with my resident, assessment and plan discussed with the resident, agree with assessment and plan as written above. Dr. Sherman Past Medical History Past Medical History: Diabetes Mellitus, Eye Disorder, Hyperlipidemia, Osteoarthritis (OA), Pneumonia Additional Past Medical History / Comment(s): Hx pneumonia X3, last 5 yrs ago, hyperlipemia WNL on medication, Diabetes resolved 4 yrs ago after diet changes. Current bilateral cataracts. History of Any Multi-Drug Resistant Organisms: None Reported Past Surgical History: Hernia Repair Additional Past Surgical History / Comment(s): right cataract removed 06-01-17 Past Anesthesia/Blood Transfusion Reactions: No Reported Reaction Past Psychological History: Depression Smoking Status: Never smoker - Past Family History Father Family Medical History: Cancer Additional Family Medical History / Comment(s): Stomach Cancer Medications and Allergies Home Medications Medication Instructions Recorded Confirmed Type No Known Home Medications 04/18/25 04/18/25 History Allergies Allergy/AdvReac Type Severity Reaction Status Date / Time No Known Allergies Allergy Verified 04/18/25 19:49 Physical Exam Vitals: Vital Signs Temp Pulse Resp BP Pulse Ox FiO2 04/19/25 06:00 97.8 F 99 20 88/65 94 L 04/19/25 05:00 97.9 F 97 21 91/60 94 L 04/19/25 04:12 90 04/19/25 04:00 87 20 98/71 96 04/19/25 03:57 89 40 04/19/25 03:00 89 18 85/65 94 L 04/19/25 02:00 102 H 20 102/74 91 L 04/19/25 01:00 91 20 95/59 92 L 04/19/25 00:34 97.4 F L 87 20 86/61 91 L 04/18/25 23:51 40 04/18/25 23:45 87 04/18/25 23:41 40 04/18/25 23:35 85 100 04/18/25 23:10 96 04/18/25 23:00 112 H 22 106/67 04/18/25 21:52 98 04/18/25 21:49 113 H 22 110/68 85 L 04/18/25 19:52 101 H 22 112/71 90 L 04/18/25 18:16 105 H 22 107/64 93 L 04/18/25 17:17 106 H 20 120/78 95 04/18/25 16:48 105 H 93 L 04/18/25 16:34 105 H 22 118/78 88 L 04/18/25 16:10 86 L 04/18/25 15:49 99.1 F 108 H 16 100/63 Intake and Output 04/18/25 04/19/25 04/19/25 22:59 06:59 14:59 Intake Total 58.74 Output Total 550 Balance -491.26 Intake: Intake, IV Titration 58.74 Amount Heparin Sod,Pork in 0.45% 58.74 NaCl 25,000 unit In 0.45 % NaCl 1 250ml.bag @ 12 UNITS/KG/HR 6.26 mls/hr IV .Q24H [facility] Rx#: [id number] Output: Urine 550 Other: Weight 52.163 kg Results CBC & Chem 7: 04/19/25 04:49 04/18/25 16:33 Labs: Abnormal Lab Results - Last 24 Hours (Table) 04/18/25 04/18/25 04/18/25 Range/Units 16:25 16:33 16:33 RBC 4.14 L (4.40-5.60) 10*6/uL MCV 100.2 H (80.0-97.0) fL MCHC 31.8 L (32.0-37.0) g/dL Plt Count (140-440) 10*3/uL MPV 9.4 L (9.5-12.2) fL Lymphocytes # 0.35 L (0.90-5.00) 10*3/uL Eosinophils # 0.00 L (0.04-0.35) 10*3/uL APTT (22.0-30.0) sec ABG pH (7.35-7.45) ABG pCO2 (35-45) mmHg ABG pO2 (83-108) mmHg ABG HCO3 (21-25) mmol/L ABG Total CO2 (19-24) mmol/L ABG O2 Saturation (94-97) % VBG pCO2 58 H (37-51) mmHg VBG HCO3 32 H (24-28) mmol/L Carbon Dioxide 34 H (22-30) mmol/L BUN 30 H (9-20) mg/dL Creatinine 0.61 L (0.66-1.25) mg/dL Glucose 176 H (74-99) mg/dL Plasma Lactic Acid Brian (0.7-2.0) mmol/L Troponin I (0.000-0.034) ng/mL Urine Protein (Negative) Hyaline Casts (0-2) /lpf Urine Mucus (None) /hpf 04/18/25 04/18/25 04/18/25 Range/Units 16:33 16:33 18:55 RBC (4.40-5.60) 10*6/uL MCV (80.0-97.0) fL MCHC (32.0-37.0) g/dL Plt Count (140-440) 10*3/uL MPV (9.5-12.2) fL Lymphocytes # (0.90-5.00) 10*3/uL Eosinophils # (0.04-0.35) 10*3/uL APTT (22.0-30.0) sec ABG pH (7.35-7.45) ABG pCO2 (35-45) mmHg ABG pO2 (83-108) mmHg ABG HCO3 (21-25) mmol/L ABG Total CO2 (19-24) mmol/L ABG O2 Saturation (94-97) % VBG pCO2 (37-51) mmHg VBG HCO3 (24-28) mmol/L Carbon Dioxide (22-30) mmol/L BUN (9-20) mg/dL Creatinine (0.66-1.25) mg/dL Glucose (74-99) mg/dL Plasma Lactic Acid Brian 2.3 H* (0.7-2.0) mmol/L Troponin I 0.549 H* (0.000-0.034) ng/mL Urine Protein 1+ H (Negative) Hyaline Casts 3 H (0-2) /lpf Urine Mucus Few H (None) /hpf 04/18/25 04/19/25 04/19/25 Range/Units 23:44 04:49 04:49 RBC 4.23 L (4.40-5.60) 10*6/uL MCV 101.4 H (80.0-97.0) fL MCHC 31.2 L (32.0-37.0) g/dL Plt Count 134 L (140-440) 10*3/uL MPV (9.5-12.2) fL Lymphocytes # (0.90-5.00) 10*3/uL Eosinophils # (0.04-0.35) 10*3/uL APTT 33.5 H (22.0-30.0) sec ABG pH 7.19 L* (7.35-7.45) ABG pCO2 95 H* (35-45) mmHg ABG pO2 233 H (83-108) mmHg ABG HCO3 36 H (21-25) mmol/L ABG Total CO2 39 H (19-24) mmol/L ABG O2 Saturation 99.6 H (94-97) % VBG pCO2 (37-51) mmHg VBG HCO3 (24-28) mmol/L Carbon Dioxide (22-30) mmol/L BUN (9-20) mg/dL Creatinine (0.66-1.25) mg/dL Glucose (74-99) mg/dL Plasma Lactic Acid Brian (0.7-2.0) mmol/L Troponin I (0.000-0.034) ng/mL Urine Protein (Negative) Hyaline Casts (0-2) /lpf Urine Mucus (None) /hpf 04/19/25 Range/Units 04:49 RBC (4.40-5.60) 10*6/uL MCV (80.0-97.0) fL MCHC (32.0-37.0) g/dL Plt Count (140-440) 10*3/uL MPV (9.5-12.2) fL Lymphocytes # (0.90-5.00) 10*3/uL Eosinophils # (0.04-0.35) 10*3/uL APTT (22.0-30.0) sec ABG pH (7.35-7.45) ABG pCO2 (35-45) mmHg ABG pO2 (83-108) mmHg ABG HCO3 (21-25) mmol/L ABG Total CO2 (19-24) mmol/L ABG O2 Saturation (94-97) % VBG pCO2 (37-51) mmHg VBG HCO3 (24-28) mmol/L Carbon Dioxide (22-30) mmol/L BUN (9-20) mg/dL Creatinine (0.66-1.25) mg/dL Glucose (74-99) mg/dL Plasma Lactic Acid Brian (0.7-2.0) mmol/L Troponin I 0.537 H* (0.000-0.034) ng/mL Urine Protein (Negative) Hyaline Casts (0-2) /lpf Urine Mucus (None) /hpf
[2025-04-19 16:38] LABS: Glucose,Whole Blood 177 mg/dL (70-110)
[2025-04-19 17:23] LABS: Glucose,Whole Blood 209 mg/dL (70-110)
[2025-04-19] MEDS: INSULIN LISPRO (HumaLOG) 100 UNIT/ML 10 mL VL SQ SCH (17:35)
[2025-04-19] MEDS: ATORVASTATIN 20 MG TAB PO SCH (20:45)
[2025-04-19] MEDS ORDERED: AZITHROMYCIN 500 MG TAB PO SCH (21:00)
[2025-04-19 21:11] LABS: Glucose,Whole Blood 185 mg/dL (70-110)
[2025-04-20 06:13] LABS: Basophils # (A) 0.00 10*3/uL (0.00-0.10); Basophils % (A) 0.0 %; Eosinophils # (A) 0.00 10*3/uL (0.04-0.35); Eosinophils % (A) 0.0 %; HCT 40.2 % (39.6-50.0); HGB 12.5 g/dL (13.0-17.0); Lymphocytes # (A) 0.20 10*3/uL (0.90-5.00); Lymphocytes % (A) 3.7 %; MCH 31.6 pg (27.0-32.0); MCHC 31.1 g/dL (32.0-37.0); MCV 101.8 fL (80.0-97.0); Monocytes # (A) 0.23 10*3/uL (0.20-1.00); Monocytes % (A) 4.3 %; Neutrophils # (A) 4.93 10*3/uL (1.80-7.70); Neutrophils % (A) 91.3 %; Platelet Count 133 10*3/uL (140-440); RBC 3.95 10*6/uL (4.40-5.60); RDW 15.7 % (11.5-14.5); WBC 5.40 10*3/uL (4.50-10.00)
[2025-04-20 06:32] LABS: African American GFR (CKD) >90 (>60 ml/min/1.73 sqM); Anion Gap 3 mmol/L; Blood Urea Nitrogen 31 mg/dL (9-20); Calcium 8.5 mg/dL (8.4-10.2); Carbon Dioxide 37 mmol/L (22-30); Chloride 100 mmol/L (98-107); Glucose 147 mg/dL (74-99); Non-African American GFR(CKD) >90 (>60 ml/min/1.73 sqM); Potassium 4.1 mmol/L (3.5-5.1); Sodium 140 mmol/L (137-145)
[2025-04-20] MEDS: ASPIRIN 81 MG PO SCH (09:50)
[2025-04-20] MEDS: PANTOPRAZOLE 40 MG TABLET PO SCH (09:50)
[2025-04-20 09:55] LABS: Glucose,Whole Blood 229 mg/dL (70-110)
--- NOTE | 2025-04-20 15:15 | PN ---
PROGRESS NOTE DATE OF SERVICE: 04/20/2025 SUBJECTIVE: This is an 84-year-old gentleman with the past medical history of multiple medical problems, was admitted with weakness, dysphagia and as well as a significant weight loss about 50 pounds over the last 1 year and as well as features of bilateral pneumonia possibly aspiration in nature. The patient is started on broad spectrum IV antibiotics, multiple consultants are following the patient closely. The patient also had multiple evaluations including neck and chest CT scan, which showed small bilateral pleural effusion with bilateral lower lobe patchy consolidation as well. Mediastinal lymphadenopathy is also noted. also noted. The patient is on BiPAP also. PAST MEDICAL HISTORY: Reviewed. REVIEW OF SYSTEMS: A 14-point review of systems negative except as mentioned earlier. CURRENT MEDICATIONS: Reviewed. PHYSICAL EXAMINATION: VITAL SIGNS: Pulse is 105, blood pressure 97/66, respirations 20, and temperature 98.4. HEENT: Conjunctivae normal. NECK: No jugular venous distention. CARDIOVASCULAR: S1, S2. RESPIRATION: Breath sounds diminished at the bases. Bilateral scattered rhonchi. ABDOMEN: Soft. NERVOUS SYSTEM: Diffuse weakness and wasting. LABORATORY DATA: Reviewed. ASSESSMENT: 1. Acute bilateral pneumonia possibly aspiration. 2. Dysphagia. 3. Severe weight loss and severe protein-calorie malnutrition with gait dysfunction, BMI is 17. 4. Diabetes mellitus, type 2. 5. Hyperlipidemia. 6. History of pneumonia. RECOMMENDATIONS AND DISCUSSION: This 84-year-old gentleman with a past medical history of multiple medical problems. We will monitor the patient closely. Continue the current medications. The patient has significant wasting at this time. I would recommend Neurology consultation to rule out the possibility of any neurologic causes. I would also recommend a barium swallow for the dysphagia with Speech. Otherwise CAT scan of the chest, which I reviewed and abnormalities as noted. Once again the prognosis guarded. We will also obtain a PT/OT evaluation, possible ECF rehab also. See orders for further details. Discussed the case at length with the family at the bedside. Further recommendations to follow. MMODL / IJN: [id number] / MTDD
[2025-04-20 16:23] LABS: Glucose,Whole Blood 139 mg/dL (70-110)
--- NOTE | 2025-04-20 16:28 | P.PN ---
Subjective Progress Note Date: 04/20/25 Patient currently being evaluated in the emergency department, he is comatose unable to provide information. According to the emergency department note, came in with increased generalized weakness. He had a fall. No reported head trauma. Noted some increased sputum production, shortness of breath, and voice changes. Reportedly, does not take any medications at home. Workup in the ED including CT brain and C-spine which did not show any acute intracranial process. Some nonspecific white matter changes, additional remote supratentorial and infratentorial injuries. Age-indeterminate compression deformity of T1 vertebral body with less than 50% body. Height loss. No retropulsion. Biapical lung seen with diffuse emphysematous changes. Linear foci of air seen in the left pleural/subpleural right apical area, likely artifact. No discernible pneumothorax seen. No chest CT was performed. There was a chest x- ray showing bibasilar airspace opacities right greater than left. Concerning f or pneumonia. CBC unremarkable for leukocytosis. Hemoglobin 13.2 g/dL. Platelets 155. CMP with sodium 140, potassium 4, chloride 98, serum bicarb 34, BUN 30, creatinine 0.61, glucose 176. 3.3 is down to 1.5. Troponin 0.55. NT proBNP significant elevated 12,500. Repeat EKG showing normal sinus rhythm, no acute ST segment elevations or T wave inversions. Patient previously systemically heparinized. Also started on combination of empiric antibiotics in the form azithromycin and Rocephin. Also previously given some IV Benadryl. Currently, evaluating this patient Emergency Department. He is comatose. Unresponsive even to painful stimuli. On 15 L NRB. I placed the patient on BiPAP. Pressure settings 15/5 and FiO2 to be titrated. ABG drawn including a PaO2 of 233, pCO2 95, pH of 7.19, consistent with severe hypercapnic respiratory failure. He is a DNR/DO NOT INTUBATE, this was confirmed by his family. On today's evaluation of 04/20/2025, the patient is being seen for a follow-up. The patient is still being treated for an acute hypoxic marilee failure and the patient is currently being treated for bilateral lower lobe pneumonia. He is currently off the BiPAP. He has a DNR/DNI CODE STATUS. Procalcitonin level has been low. The patient is currently on oxygen at 3 L/min nasal cannula. I was concerned of the malignancy. The patient was having chronic hoarseness. A CAT scan of the chest was ordered. The CAT scan of the neck was also ordered. No significant abnormalities in the neck. CAT scan of the chest showed extensive emphysema, minimal mediastinal lymphadenopathy, and aortic root was measuring 4.1 cm in size. The patient also had small bilateral pleural effusion and bilateral lower lobe consolidation. He remains on broad-spectrum antibiotics. The patient remains on IV Zosyn. Remains on bronchodilators. Remains on IV Solu-Medrol. Oxygenation is stable at 3 L/min nasal cannula with a pulse ox of 95%. Objective - Vital Signs Vital signs: Vital Signs Temp 97.8 F 04/20/25 08:00 Pulse 112 H 04/20/25 09:00 Resp 20 04/20/25 09:00 BP 103/54 04/20/25 09:00 Pulse Ox 99 04/20/25 09:00 FiO2 40 04/20/25 02:30 Intake & Output 04/19/25 04/20/25 04/20/25 18:59 06:59 18:59 Output Total 1050 895 Balance -1050 -895 Output: Urine 1050 895 Uretheral (Concepcion) 850 325 - Exam GENERAL EXAM: Comatose, 85-year-old male, unresponsive to even painful stimuli. Placed patient on 3 L of oxygen by nasal cannula HEAD: Normocephalic and atraumatic EYES: Normal reaction of pupils, equal size. NOSE: Clear with pink turbinates. THROAT: No erythema or exudates. NECK: No masses, no JVD. CHEST: No chest wall deformity. LUNGS: Equal air entry with no crackles, wheeze, rhonchi or dullness. CVS: S1 and S2 normal with no audible murmur, regular rhythm. No extra heart sounds ABDOMEN: No hepatosplenomegaly, active bowel sounds, no guarding or rigidity. SPINE: No scoliosis or deformity SKIN: No rashes CENTRAL NERVOUS SYSTEM: Comatose, does not withdraw to painful stimuli in all 4 extremities. EXTREMITIES: There is no peripheral edema, clubbing, or cyanosis. Peripheral pulses are intact. - Labs CBC & Chem 7: 04/20/25 06:00 04/20/25 06:00 Labs: Abnormal Lab Results - Last 24 Hours (Table) 04/19/25 04/19/25 04/19/25 Range/Units 16:36 17:18 21:09 RBC (4.40-5.60) 10*6/uL Hgb (13.0-17.0) g/dL MCV (80.0-97.0) fL MCHC (32.0-37.0) g/dL Plt Count (140-440) 10*3/uL Lymphocytes # (0.90-5.00) 10*3/uL Eosinophils # (0.04-0.35) 10*3/uL Carbon Dioxide (22-30) mmol/L BUN (9-20) mg/dL Creatinine (0.66-1.25) mg/dL Glucose (74-99) mg/dL POC Glucose (mg/dL) 177 H 209 H 185 H (70-110) mg/dL 04/20/25 04/20/25 Range/Units 06:00 06:00 RBC 3.95 L (4.40-5.60) 10*6/uL Hgb 12.5 L (13.0-17.0) g/dL MCV 101.8 H (80.0-97.0) fL MCHC 31.1 L (32.0-37.0) g/dL Plt Count 133 L (140-440) 10*3/uL Lymphocytes # 0.20 L (0.90-5.00) 10*3/uL Eosinophils # 0.00 L (0.04-0.35) 10*3/uL Carbon Dioxide 37 H (22-30) mmol/L BUN 31 H (9-20) mg/dL Creatinine 0.57 L (0.66-1.25) mg/dL Glucose 147 H (74-99) mg/dL POC Glucose (mg/dL) (70-110) mg/dL Microbiology - Last 24 Hours (Table) 04/18/25 20:50 Blood Culture - Preliminary Blood Assessment and Plan Assessment: Acute hypoxemic and hypercapnic respiratory failure, placed on BiPAP, chest x- ray showing bibasilar airspace opacities right greater than left. Concerning for pneumonia. No pleural effusions. No evidence of pneumothorax. The patient is currently on liters of oxygen by nasal cannula. CAT scan of the chest showed advanced emphysema and bilateral lower lobe pulmonary infiltrates. No evidence of any malignancy. COPD/emphysema Acute non-ST elevation [place], systemically heparinized Fall, CT brain and C-spine which did not show any acute intracranial process. Some nonspecific white matter changes, additional remote supratentorial and infratentorial injuries. Age-indeterminate compression deformity of T1 vertebral body with less than 50% body. Height loss. No retropulsion. Biapical lung seen with diffuse emphysematous changes. Linear foci of air seen in the left pleural/subpleural right apical area, likely artifact. No discernible pneumothorax seen Age-indeterminate T1 vertebral body compression deformity History of hyperlipidemia Plan: Titrate oxygen flow to maintain saturation above 90%, currently on 3 L Patient has a DO NOT RESUSCITATE/DO NOT INTUBATE status, confirmed with family Chest x-ray reviewed, no evidence of pneumothorax. Bibasilar infiltrates concerning for pneumonia, CAT scan of the chest was noted Continue IV Zosyn Continue bronchodilators Continue IV Solu-Medrol Legionella urine antigen was negative Procalcitonin level was less than 0.2 Abnormal troponins and elevated proBNP level. Cardiology has been consulted and IV heparin has been discontinued. Will continue to follow.
[2025-04-20 20:03] LABS: Glucose,Whole Blood 125 mg/dL (70-110)
[2025-04-21 05:58] LABS: Glucose,Whole Blood 126 mg/dL (70-110)
[2025-04-21 07:49] LABS: Basophils # (A) 0.01 10*3/uL (0.00-0.10); Basophils % (A) 0.2 %; Eosinophils # (A) 0.00 10*3/uL (0.04-0.35); Eosinophils % (A) 0.0 %; HCT 41.9 % (39.6-50.0); HGB 13.0 g/dL (13.0-17.0); Lymphocytes # (A) 0.20 10*3/uL (0.90-5.00); Lymphocytes % (A) 3.0 %; MCH 31.6 pg (27.0-32.0); MCHC 31.0 g/dL (32.0-37.0); MCV 101.9 fL (80.0-97.0); Monocytes # (A) 0.17 10*3/uL (0.20-1.00); Monocytes % (A) 2.6 %; Neutrophils # (A) 6.18 10*3/uL (1.80-7.70); Neutrophils % (A) 93.7 %; Platelet Count 145 10*3/uL (140-440); RBC 4.11 10*6/uL (4.40-5.60); RDW 15.2 % (11.5-14.5); WBC 6.59 10*3/uL (4.50-10.00)
[2025-04-21 08:08] LABS: African American GFR (CKD) >90 (>60 ml/min/1.73 sqM); Anion Gap 3 mmol/L; Blood Urea Nitrogen 23 mg/dL (9-20); Calcium 9.2 mg/dL (8.4-10.2); Carbon Dioxide 38 mmol/L (22-30); Chloride 96 mmol/L (98-107); Glucose 135 mg/dL (74-99); Non-African American GFR(CKD) >90 (>60 ml/min/1.73 sqM); Potassium 4.7 mmol/L (3.5-5.1); Sodium 137 mmol/L (137-145)
[2025-04-21] MEDS: DIGOXIN 125 MCG TAB PO SCH (09:45)
--- NOTE | 2025-04-21 11:07 | P.PN ---
Subjective Progress Note Date: 04/21/25 The patient is an 84-year-old male who was admitted to the hospital with hypoxic and hypercapnic respiratory failure. Cardiology was initially consulted for elevated troponins, diagnosis type II myocardial infarction secondary to oxygen supply/demand mismatch. Cardiology had signed off on the case, however we were reconsulted as he had episode of atrial fibrillation overnight. According to nursing staff this lasted approximately 1 hour with heart rates in the 120s. Patient self converted thereafter. Patient interviewed and examined resting comfortably in bed. He states he does not currently have any chest pain or respiratory distress. Overall he is feeling well since his admission and would like to go home GENERAL: Well-appearing, frail/malnourished and in no acute distress. NECK: Supple without JVD or thyromegaly. LUNGS: Breath sounds coarse to auscultation bilaterally. Respiration equal and unlabored. No wheezes. HEART: Regular rate and rhythm without murmurs, rubs or gallops. S1 and S2 heard. EXTREMITIES: Normal range of motion, no edema. No clubbing or cyanosis. Peripheral pulses intact and strong. TELEMETRY: Currently in sinus rhythm Overnight 1 hour of atrial fibrillation with heart rates in the 120s LABS: WBC 6.5, hemoglobin 13.0, Holden crit 41.9, platelet 145, sodium 137, potassium 4.7, BUN 23, creatinine 0.50 IMPRESSION: New onset of paroxysmal atrial fibrillation Acute hypoxic and hypercapnic respiratory failure Bilateral pneumonia History of COPD Elevated troponins, type II ME secondary to oxygen supply/demand mismatch History of hyperlipidemia PLAN: Start low-dose digoxin Not a candidate anticoagulation due to frequent falls Outpatient follow-up with Dr. Alvarez for A-fib monitoring thereafter I am dictating on behalf of Dr Art Alvarez's history/physical and assessment/plan. Objective - Vital Signs Vital signs: Vital Signs Temp 97.7 F 04/21/25 04:00 Pulse 93 04/21/25 06:42 Resp 18 04/21/25 04:00 BP 100/64 04/21/25 04:00 Pulse Ox 100 04/21/25 04:00 FiO2 40 04/21/25 00:00 Intake & Output 04/20/25 04/21/25 04/21/25 18:59 06:59 18:59 Intake Total 236 300 306 Output Total 425 425 Balance -189 -125 306 Weight 52.163 kg 54.4 kg Intake: Intake, IV Titration 200 Amount Piperacillin-Tazobactam 3 200 .375 gm In Sodium Chloride 0.9% 100 ml @ 25 mls/hr IVPB Q8HR [facility] Rx# :[id number] Oral 236 100 306 Output: Urine 425 425 Other: Voiding Method Indwelling Catheter Indwelling Catheter # Bowel Movements 1 - Labs CBC & Chem 7: 04/21/25 07:22 04/21/25 07:22 Labs: Abnormal Lab Results - Last 24 Hours (Table) 04/20/25 04/20/25 04/20/25 Range/Units 06:00 06:00 09:53 RBC (4.40-5.60) 10*6/uL MCV (80.0-97.0) fL MCHC (32.0-37.0) g/dL Lymphocytes # (0.90-5.00) 10*3/uL Monocytes # (0.20-1.00) 10*3/uL Eosinophils # (0.04-0.35) 10*3/uL ESR 49 H (0-20) mm/Hr Chloride (98-107) mmol/L Carbon Dioxide (22-30) mmol/L BUN (9-20) mg/dL Creatinine (0.66-1.25) mg/dL Glucose (74-99) mg/dL POC Glucose (mg/dL) 229 H (70-110) mg/dL C-Reactive Protein 21.7 H (<1.0) mg/dL 04/20/25 04/20/25 04/21/25 Range/Units 16:21 20:02 05:56 RBC (4.40-5.60) 10*6/uL MCV (80.0-97.0) fL MCHC (32.0-37.0) g/dL Lymphocytes # (0.90-5.00) 10*3/uL Monocytes # (0.20-1.00) 10*3/uL Eosinophils # (0.04-0.35) 10*3/uL ESR (0-20) mm/Hr Chloride (98-107) mmol/L Carbon Dioxide (22-30) mmol/L BUN (9-20) mg/dL Creatinine (0.66-1.25) mg/dL Glucose (74-99) mg/dL POC Glucose (mg/dL) 139 H 125 H 126 H (70-110) mg/dL C-Reactive Protein (<1.0) mg/dL 04/21/25 04/21/25 Range/Units 07:22 07:22 RBC 4.11 L (4.40-5.60) 10*6/uL MCV 101.9 H (80.0-97.0) fL MCHC 31.0 L (32.0-37.0) g/dL Lymphocytes # 0.20 L (0.90-5.00) 10*3/uL Monocytes # 0.17 L (0.20-1.00) 10*3/uL Eosinophils # 0.00 L (0.04-0.35) 10*3/uL ESR (0-20) mm/Hr Chloride 96 L (98-107) mmol/L Carbon Dioxide 38 H (22-30) mmol/L BUN 23 H (9-20) mg/dL Creatinine 0.50 L (0.66-1.25) mg/dL Glucose 135 H (74-99) mg/dL POC Glucose (mg/dL) (70-110) mg/dL C-Reactive Protein (<1.0) mg/dL Microbiology - Last 24 Hours (Table) 04/18/25 20:50 Blood Culture - Preliminary Blood
[2025-04-21 11:36] LABS: Glucose,Whole Blood 130 mg/dL (70-110)
--- NOTE | 2025-04-21 12:38 | P.CNNES ---
History of Present Illness Consult date: 04/20/25 Requesting physician: Hafsa Lucas Reason for Consult: dysphagia secondary to neuro illness. wasting LMN lesion?? History of Present Illness: Patient is a 84-year-old male came to the hospital 2 days ago at 3:38 PM was brought to the hospital by family members because of increasing weakness. Patient's son was also present by the bedside. Patient states that he was cutting grass, working in the garden on Tuesday (1 day prior to arrival). He pushed the router till away, turned around and fell. He could not get up. He crawled and tried to pull himself up, but he could not. He called life alert, and EMS came and they helped him get up. He did not go to the hospital. Patient's son mentions that the next day on (on the day of admission) he was "out of it". Therefore they brought him to the hospital. Patient is very hard of hearing. Family denies any history of dementia. Family also mentioned that he has increased sputum, shortness of breath and changes in voice, more hoarse. Patient has been losing weight for last 2 years. Patient at baseline uses cane at night but usually uses walker during the day. Vital signs on arrival blood pressure 100/63, pulse rate 108, temperature 99.1. He has been otherwise afebrile. Patient blood test shows normal WBC hemoglobin 12.5, platelets are 133. Electrolytes are normal, renal functions normal. CRP 21.7. ABG with pH 7.19, PCO2 95, PO2 233 and saturation 99.6%. Hemoglobin A1c 5.4, troponin mildly elevated 0.537 B12 710, UA negative. Urine Legionella negative. Chest x-ray revealed bibasilar patchy airspace opacities, concerning for pneumonia. CT of the brain showed no acute intracranial process. Nonspecific white matter changes, likely secondary to chronic small vessel ischemic disease. Additional remote supratentorial and infratentorial injuries. 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 Small vessel disease. Possible encephalomalacia left anterior temporal lobe CT of the cervical spine revealed age-indeterminate compression deformity of T1 vertebral body superior endplate with less than 50% body height loss and no retropulsion seen. Correlate with point tenderness. Linear foci of air seen in the pleural/subpleural right apex may relate to a combination of artifact and paraseptal emphysematous changes however findings could relate to possible trace pneumothorax given history of trauma. Repeat chest x-ray showed COPD with bibasilar airspace disease and small right pleural effusion. Correlate for infectious or aspiration pneumonitis. Patient had a CT of neck and chest, which revealed small bilateral pleural effusions with bilateral lower lobe patchy consolidative opacities consistent with pneumonia. Mediastinal adenopathy, moderate emphysematous changes. 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 Patient has failed swallow studies and the speech therapy recommended nectar consistency. No straw. Liquids from cup. Small bites and sips. Neurology was consulted to rule out any motor neuron disease. Patient's family denies any dysarthria. His slight difficulty breathing is likely related to pneumonia. No problems swallowing otherwise. Review of Systems All pertinent positive and negative review of systems mentioned in the HPI, otherwise unremarkable. Past Medical History Past Medical History: Diabetes Mellitus, Eye Disorder, Hyperlipidemia, Osteoarthritis (OA), Pneumonia Additional Past Medical History / Comment(s): Hx pneumonia X3, last 5 yrs ago, hyperlipemia WNL on medication, Diabetes resolved 4 yrs ago after diet changes. Current bilateral cataracts. History of Any Multi-Drug Resistant Organisms: None Reported Past Surgical History: Hernia Repair Additional Past Surgical History / Comment(s): bilateral cataract removed 06-01-17 Past Anesthesia/Blood Transfusion Reactions: No Reported Reaction Past Psychological History: Depression Additional Psychological History / Comment(s): No Meds. Smoking Status: Former smoker Past Alcohol Use History: None Reported Additional Past Alcohol Use History / Comment(s): Smoked >1PPD for 6 yrs, quit in 1991. Past Drug Use History: None Reported - Past Family History Father Family Medical History: Cancer Additional Family Medical History / Comment(s): Stomach Cancer Medications and Allergies Home Medications Medication Instructions Recorded Confirmed Type No Known Home Medications 04/18/25 04/18/25 History Allergies Allergy/AdvReac Type Severity Reaction Status Date / Time No Known Allergies Allergy Verified 04/18/25 19:49 Physical Examination - Vital Signs Vital Signs: Vital Signs Temp Pulse Pulse Resp BP BP Pulse Ox 04/20/25 12:55 98.7 F 107 H 24 85/51 95 04/20/25 12:00 98.5 F 105 H 20 97/66 99 04/20/25 11:32 104 H 04/20/25 11:18 101 H 04/20/25 09:00 112 H 20 103/54 99 04/20/25 08:55 100 04/20/25 08:45 100 04/20/25 08:44 100 04/20/25 08:32 96 95 04/20/25 08:00 97.8 F 105 H 18 110/95 92 L 04/20/25 06:00 106 H 16 104/66 98 04/20/25 04:00 98.7 F 112 H 16 98/78 98 04/20/25 03:51 106 H 04/20/25 03:38 100 04/20/25 02:30 04/20/25 00:00 98.5 F 96 16 91/70 98 04/19/25 23:49 90 04/19/25 23:45 99 16 97/70 98 04/19/25 22:31 108 H 16 94/64 97 04/19/25 22:25 04/19/25 21:00 104 H 16 104/63 98 04/19/25 20:47 115 H 04/19/25 20:32 108 H 04/19/25 20:31 108 H 04/19/25 20:22 109 H 04/19/25 19:36 98.4 F 108 H 20 95/75 96 04/19/25 18:16 113 H 20 106/57 96 04/19/25 16:07 102 H 04/19/25 15:53 98 FiO2 04/20/25 12:55 04/20/25 12:00 04/20/25 11:32 04/20/25 11:18 04/20/25 09:00 04/20/25 08:55 04/20/25 08:45 04/20/25 08:44 04/20/25 08:32 04/20/25 08:00 04/20/25 06:00 04/20/25 04:00 04/20/25 03:51 04/20/25 03:38 04/20/25 02:30 40 04/20/25 00:00 04/19/25 23:49 04/19/25 23:45 04/19/25 22:31 04/19/25 22:25 40 04/19/25 21:00 04/19/25 20:47 04/19/25 20:32 04/19/25 20:31 04/19/25 20:22 04/19/25 19:36 04/19/25 18:16 04/19/25 16:07 04/19/25 15:53 Intake and Output 04/20/25 04/20/25 04/20/25 06:59 14:59 22:59 Intake Total 118 Output Total 445 Balance -445 118 Intake: Oral 118 Output: Urine 445 Uretheral (Concepcion) 325 Other: Voiding Method Indwelling Catheter Weight 52.163 kg Patient is an elderly male, who appears somewhat cachectic, in no acute distress. Patient is alert awake oriented to time place and person. Speech is mild to mod erately hoarse, and language functions are normal. Patient can name and repeat very well. No aphasia or dysarthria. Attention, concentration and fund of knowledge is adequate. Detailed cognitive function testing deferred. Patient keeps on saying that he is going home tomorrow no matter what. On cranial nerve examination, pupils are equal, round and reacting to light, visual obrien are full on confrontation, with no neglect on double simultaneous stimulation. Extraocular muscles are intact with no nystagmus. Face is symmetric, tongue protrudes to the midline. Palatal elevation and sensation normal, hearing and shoulder shrug normal, facial sensation normal. Patient's tongue movement [id number] appears very strong. No obvious tongue fasciculations or atrophy. On muscle strength testing, there is no pronator drift and the strength is symmetric, deltoid 5-, biceps 5, triceps 5, lead applications developer 5, hip flexion 4+4-, ankle dorsiflexion 5, inversion 5, eversion 5 into extension 5-. It appeared patient's ankles were weak, but on reinforcement appeared normal. Patient has hammertoes and high arched feet. Patient is somewhat cachectic, but there is no obvious evidence of muscle fasciculations. Deep tendon reflexes are very hypoactive, plantars flat. Sensory to touch is equal with no neglect on double simultaneous stimulation. Cerebellar function showed no ataxia for [id number] testing. No dysdiadochokinesia. No ataxia for [id number] testing on either side. Tone and bulk of muscles normal. Gait deferred.. On general examination, there is no carotid bruit or murmur, S1-S2 audible. Chest is clear on consultation. Abdomen is soft nontender. No organomegaly, bowel sounds present. Peripheral pulses are present. No peripheral edema. Results - Laboratory Findings CBC and BMP: 04/21/25 07:22 04/21/25 07:22 Abnormal Lab Findings: Abnormal Labs 04/18/25 04/18/25 04/18/25 16:25 16:33 16:33 RBC 4.14 L Hgb MCV 100.2 H MCHC 31.8 L Plt Count MPV 9.4 L Lymphocytes # 0.35 L Lymphocytes # (Manual) Eosinophils # 0.00 L APTT ABG pH ABG pCO2 ABG pO2 ABG HCO3 ABG Total CO2 ABG O2 Saturation VBG pCO2 58 H VBG HCO3 32 H Carbon Dioxide 34 H BUN 30 H Creatinine 0.61 L Glucose 176 H POC Glucose (mg/dL) Plasma Lactic Acid Brian Troponin I C-Reactive Protein Urine Protein Hyaline Casts Urine Mucus 04/18/25 04/18/25 04/18/25 16:33 16:33 18:55 RBC Hgb MCV MCHC Plt Count MPV Lymphocytes # Lymphocytes # (Manual) Eosinophils # APTT ABG pH ABG pCO2 ABG pO2 ABG HCO3 ABG Total CO2 ABG O2 Saturation VBG pCO2 VBG HCO3 Carbon Dioxide BUN Creatinine Glucose POC Glucose (mg/dL) Plasma Lactic Acid Brian 2.3 H* Troponin I 0.549 H* C-Reactive Protein Urine Protein 1+ H Hyaline Casts 3 H Urine Mucus Few H 04/18/25 04/19/25 04/19/25 23:44 04:49 04:49 RBC 4.23 L Hgb MCV 101.4 H MCHC 31.2 L Plt Count 134 L MPV Lymphocytes # Lymphocytes # (Manual) 0.42 L Eosinophils # APTT 33.5 H ABG pH 7.19 L* ABG pCO2 95 H* ABG pO2 233 H ABG HCO3 36 H ABG Total CO2 39 H ABG O2 Saturation 99.6 H VBG pCO2 VBG HCO3 Carbon Dioxide BUN Creatinine Glucose POC Glucose (mg/dL) Plasma Lactic Acid Brian Troponin I C-Reactive Protein Urine Protein Hyaline Casts Urine Mucus 04/19/25 04/19/25 04/19/25 04:49 16:36 17:18 RBC Hgb MCV MCHC Plt Count MPV Lymphocytes # Lymphocytes # (Manual) Eosinophils # APTT ABG pH ABG pCO2 ABG pO2 ABG HCO3 ABG Total CO2 ABG O2 Saturation VBG pCO2 VBG HCO3 Carbon Dioxide BUN Creatinine Glucose POC Glucose (mg/dL) 177 H 209 H Plasma Lactic Acid Brian Troponin I 0.537 H* C-Reactive Protein Urine Protein Hyaline Casts Urine Mucus 04/19/25 04/20/25 04/20/25 21:09 06:00 06:00 RBC 3.95 L Hgb 12.5 L MCV 101.8 H MCHC 31.1 L Plt Count 133 L MPV Lymphocytes # 0.20 L Lymphocytes # (Manual) Eosinophils # 0.00 L APTT ABG pH ABG pCO2 ABG pO2 ABG HCO3 ABG Total CO2 ABG O2 Saturation VBG pCO2 VBG HCO3 Carbon Dioxide 37 H BUN 31 H Creatinine 0.57 L Glucose 147 H POC Glucose (mg/dL) 185 H Plasma Lactic Acid Brian Troponin I C-Reactive Protein Urine Protein Hyaline Casts Urine Mucus 04/20/25 04/20/25 06:00 09:53 RBC Hgb MCV MCHC Plt Count MPV Lymphocytes # Lymphocytes # (Manual) Eosinophils # APTT ABG pH ABG pCO2 ABG pO2 ABG HCO3 ABG Total CO2 ABG O2 Saturation VBG pCO2 VBG HCO3 Carbon Dioxide BUN Creatinine Glucose POC Glucose (mg/dL) 229 H Plasma Lactic Acid Brian Troponin I C-Reactive Protein 21.7 H Urine Protein Hyaline Casts Urine Mucus Assessment and Plan Assessment: * Dysphagia, unclear cause. * Aspiration pneumonia * Probable peripheral neuropathy. Patient has high arched feet and hammertoes. * Diabetes, in remission since weight loss * Hyperlipidemia * Osteoarthritis * Ex tobacco use Plan: * Patient's dysphagia is of unclear cause. No obvious evidence of motor neuron disease noticed. No muscle fasciculations, atrophy. He does have evidence of peripheral neuropathy with evidence of high arched feet and hammertoes. Patient also has balance issues. Recommend EMG and nerve conduction studies o f bilateral lower limbs as an outpatient to evaluate for peripheral neuropathy, rule out any evidence of motor neuron disease. * We will check acetylcholine receptor antibodies. * B12 610, hemoglobin A1c 5.4 * Patient currently on Zosyn for pneumonia. Also on methylprednisolone 40 mg every 12 hours. * DVT prophylaxis: On Lovenox. * Neurology will follow clinically. Thank you for the consult.
[2025-04-21 16:32] LABS: Glucose,Whole Blood 125 mg/dL (70-110)
--- NOTE | 2025-04-21 19:04 | P.PN ---
Subjective Progress Note Date: 04/21/25 Patient currently being evaluated in the emergency department, he is comatose unable to provide information. According to the emergency department note, came in with increased generalized weakness. He had a fall. No reported head trauma. Noted some increased sputum production, shortness of breath, and voice changes. Reportedly, does not take any medications at home. Workup in the ED including CT brain and C-spine which did not show any acute intracranial process. Some nonspecific white matter changes, additional remote supratentorial and infratentorial injuries. Age-indeterminate compression deformity of T1 vertebral body with less than 50% body. Height loss. No retropulsion. Biapical lung seen with diffuse emphysematous changes. Linear foci of air seen in the left pleural/subpleural right apical area, likely artifact. No discernible pneumothorax seen. No chest CT was performed. There was a chest x- ray showing bibasilar airspace opacities right greater than left. Concerning f or pneumonia. CBC unremarkable for leukocytosis. Hemoglobin 13.2 g/dL. Platelets 155. CMP with sodium 140, potassium 4, chloride 98, serum bicarb 34, BUN 30, creatinine 0.61, glucose 176. 3.3 is down to 1.5. Troponin 0.55. NT proBNP significant elevated 12,500. Repeat EKG showing normal sinus rhythm, no acute ST segment elevations or T wave inversions. Patient previously systemically heparinized. Also started on combination of empiric antibiotics in the form azithromycin and Rocephin. Also previously given some IV Benadryl. Currently, evaluating this patient Emergency Department. He is comatose. Unresponsive even to painful stimuli. On 15 L NRB. I placed the patient on BiPAP. Pressure settings 15/5 and FiO2 to be titrated. ABG drawn including a PaO2 of 233, pCO2 95, pH of 7.19, consistent with severe hypercapnic respiratory failure. He is a DNR/DO NOT INTUBATE, this was confirmed by his family. On today's evaluation of 04/20/2025, the patient is being seen for a follow-up. The patient is still being treated for an acute hypoxic marilee failure and the patient is currently being treated for bilateral lower lobe pneumonia. He is currently off the BiPAP. He has a DNR/DNI CODE STATUS. Procalcitonin level has been low. The patient is currently on oxygen at 3 L/min nasal cannula. I was concerned of the malignancy. The patient was having chronic hoarseness. A CAT scan of the chest was ordered. The CAT scan of the neck was also ordered. No significant abnormalities in the neck. CAT scan of the chest showed extensive emphysema, minimal mediastinal lymphadenopathy, and aortic root was measuring 4.1 cm in size. The patient also had small bilateral pleural effusion and bilateral lower lobe consolidation. He remains on broad-spectrum antibiotics. The patient remains on IV Zosyn. Remains on bronchodilators. Remains on IV Solu-Medrol. Oxygenation is stable at 3 L/min nasal cannula with a pulse ox of 95%. On 04/21/2025, the patient is being seen for a follow-up. The patient has no specific complaints. Doing well. Overall condition is improved compared to yesterday and the patient seems to be less bronchospastic and wheezy and the cough and congestion is also improved. The patient remains on DuoNeb and blood treatments [id number]. IV Solu-Medrol. IV Zosyn. Sputum sample and blood culture still negative for now. Remains on oxygen and patient is currently on room air with a pulse ox of 92%. Objective - Vital Signs Vital signs: Vital Signs Temp 97.7 F 04/21/25 04:00 Pulse 92 04/21/25 11:28 Resp 18 04/21/25 04:00 BP 100/64 04/21/25 04:00 Pulse Ox 93 L 04/21/25 11:15 FiO2 40 04/21/25 00:00 Intake & Output 04/20/25 04/21/25 04/21/25 18:59 06:59 18:59 Intake Total 236 300 306 Output Total 425 425 Balance -189 -125 306 Weight 52.163 kg 54.4 kg Intake: Intake, IV Titration 200 Amount Piperacillin-Tazobactam 3 200 .375 gm In Sodium Chloride 0.9% 100 ml @ 25 mls/hr IVPB Q8HR [facility] Rx# :[id number] Oral 236 100 306 Output: Urine 425 425 Other: Voiding Method Indwelling Catheter Indwelling Catheter # Bowel Movements 1 - Exam GENERAL EXAM: Comatose, 85-year-old male, unresponsive to even painful stimuli. Placed patient on 3 L of oxygen by nasal cannula HEAD: Normocephalic and atraumatic EYES: Normal reaction of pupils, equal size. NOSE: Clear with pink turbinates. THROAT: No erythema or exudates. NECK: No masses, no JVD. CHEST: No chest wall deformity. LUNGS: Equal air entry with no crackles, wheeze, rhonchi or dullness. CVS: S1 and S2 normal with no audible murmur, regular rhythm. No extra heart sounds ABDOMEN: No hepatosplenomegaly, active bowel sounds, no guarding or rigidity. SPINE: No scoliosis or deformity SKIN: No rashes CENTRAL NERVOUS SYSTEM: Comatose, does not withdraw to painful stimuli in all 4 extremities. EXTREMITIES: There is no peripheral edema, clubbing, or cyanosis. Peripheral pulses are intact. - Labs CBC & Chem 7: 04/21/25 07:22 04/21/25 07:22 Labs: Abnormal Lab Results - Last 24 Hours (Table) 04/20/25 04/20/25 04/20/25 Range/Units 06:00 06:00 16:21 RBC (4.40-5.60) 10*6/uL MCV (80.0-97.0) fL MCHC (32.0-37.0) g/dL Lymphocytes # (0.90-5.00) 10*3/uL Monocytes # (0.20-1.00) 10*3/uL Eosinophils # (0.04-0.35) 10*3/uL ESR 49 H (0-20) mm/Hr Chloride (98-107) mmol/L Carbon Dioxide (22-30) mmol/L BUN (9-20) mg/dL Creatinine (0.66-1.25) mg/dL Glucose (74-99) mg/dL POC Glucose (mg/dL) 139 H (70-110) mg/dL C-Reactive Protein 21.7 H (<1.0) mg/dL 04/20/25 04/21/25 04/21/25 Range/Units 20:02 05:56 07:22 RBC 4.11 L (4.40-5.60) 10*6/uL MCV 101.9 H (80.0-97.0) fL MCHC 31.0 L (32.0-37.0) g/dL Lymphocytes # 0.20 L (0.90-5.00) 10*3/uL Monocytes # 0.17 L (0.20-1.00) 10*3/uL Eosinophils # 0.00 L (0.04-0.35) 10*3/uL ESR (0-20) mm/Hr Chloride (98-107) mmol/L Carbon Dioxide (22-30) mmol/L BUN (9-20) mg/dL Creatinine (0.66-1.25) mg/dL Glucose (74-99) mg/dL POC Glucose (mg/dL) 125 H 126 H (70-110) mg/dL C-Reactive Protein (<1.0) mg/dL 04/21/25 04/21/25 Range/Units 07:22 11:34 RBC (4.40-5.60) 10*6/uL MCV (80.0-97.0) fL MCHC (32.0-37.0) g/dL Lymphocytes # (0.90-5.00) 10*3/uL Monocytes # (0.20-1.00) 10*3/uL Eosinophils # (0.04-0.35) 10*3/uL ESR (0-20) mm/Hr Chloride 96 L (98-107) mmol/L Carbon Dioxide 38 H (22-30) mmol/L BUN 23 H (9-20) mg/dL Creatinine 0.50 L (0.66-1.25) mg/dL Glucose 135 H (74-99) mg/dL POC Glucose (mg/dL) 130 H (70-110) mg/dL C-Reactive Protein (<1.0) mg/dL Microbiology - Last 24 Hours (Table) 04/18/25 20:50 Blood Culture - Preliminary Blood Assessment and Plan Assessment: Acute hypoxemic and hypercapnic respiratory failure, placed on BiPAP, chest x- ray showing bibasilar airspace opacities right greater than left. Concerning for pneumonia. No pleural effusions. No evidence of pneumothorax. The patient is currently on room air oxygen. CAT scan of the chest showed advanced em physema and bilateral lower lobe pulmonary infiltrates. No evidence of any malignancy. COPD/emphysema Acute non-ST elevation ND, systemically heparinized Fall, CT brain and C-spine which did not show any acute intracranial process. Some nonspecific white matter changes, additional remote supratentorial and infratentorial injuries. Age-indeterminate compression deformity of T1 vertebral body with less than 50% body. Height loss. No retropulsion. Biapical lung seen with diffuse emphysematous changes. Linear foci of air seen in the left pleural/subpleural right apical area, likely artifact. No discernible pneumothorax seen Age-indeterminate T1 vertebral body compression deformity History of hyperlipidemia Plan: Continue same treatment Oxygenation is improved and the patient is currently on room air oxygen. Patient has a DO NOT RESUSCITATE/DO NOT INTUBATE status, confirmed with family Chest x-ray reviewed, no evidence of pneumothorax. Bibasilar infiltrates concerning for pneumonia, CAT scan of the chest was noted Continue IV Zosyn Continue bronchodilators Continue IV Solu-Medrol Legionella urine antigen was negative Procalcitonin level was less than 0.2 Abnormal troponins and elevated proBNP level. Cardiology has been consulted and IV heparin has been discontinued. Will continue to follow.
[2025-04-21 20:23] LABS: Glucose,Whole Blood 156 mg/dL (70-110)
[2025-04-21] MEDS: MELATONIN 5 MG TABLET PO PRN (21:32)
--- NOTE | 2025-04-21 23:05 | PN ---
PROGRESS NOTE DATE OF SERVICE: 04/21/2025 HISTORY OF PRESENT ILLNESS: This is an 84-year-old gentleman who was admitted with weight loss, dysphagia, and also malnutrition. Also had aspiration pneumonia. Neurology has seen the patient and thought that the patient had some peripheral neuropathy. Recommend outpatient followup and workup. PAST MEDICAL HISTORY: Reviewed. REVIEW OF SYSTEMS: 14-point review of systems is negative except as mentioned earlier. CURRENT MEDICATIONS: Reviewed. PHYSICAL EXAMINATION: VITAL SIGNS: Pulse 95, blood pressure 103/80, respirations 18. HEENT: Conjunctivae normal. NECK: No jugular venous distention. CARDIOVASCULAR: S1, S2. RESPIRATIONS: Breath sounds diminished at the bases. Scattered rhonchi. ABDOMEN: Soft. NERVOUS SYSTEM: Nonfocal. LABORATORY DATA: Reviewed. ASSESSMENT: 1. Acute bilateral pneumonia, possibly aspiration. 2. Dysphagia. paroxysmal afib no anticoag per cardio 3. Severe weight loss and severe protein-calorie malnutrition with gait dysfunction, body mass index is 17. 4. Diabetes mellitus, type 2. 5. Hyperlipidemia. 6. History of pneumonia. RECOMMENDATIONS AND DISCUSSION: Recommend to continue current management and continue symptomatic treatment. Otherwise, I also recommend a CT scan of the abdomen and pelvis to complete the workup. Otherwise, repeat labs. Continue with the antibiotics. Gastroenterology evaluation for possible endoscopies. Modified barium swallow with Speech Pathology if GI is not available. Guarded prognosis. Further recommendations to follow. MMODL / IJN: [id number] / MTDD
--- NOTE | 2025-04-22 02:02 | P.PN ---
Subjective Progress Note Date: 04/21/25 Patient was seen for a follow-up. Patient is laying in the bed, in no acute distress. Objective - Vital Signs Vital signs: Vital Signs Temp 97.8 F 04/21/25 09:15 Pulse 95 04/21/25 11:35 Resp 18 04/21/25 11:35 BP 103/36 04/21/25 11:35 Pulse Ox 97 04/21/25 11:35 FiO2 40 04/21/25 00:00 Intake & Output 04/20/25 04/21/25 04/21/25 18:59 06:59 18:59 Intake Total 236 300 546 Output Total 425 425 700 Balance -189 -125 -154 Weight 52.163 kg 54.4 kg Intake: Intake, IV Titration 200 Amount Piperacillin-Tazobactam 3 200 .375 gm In Sodium Chloride 0.9% 100 ml @ 25 mls/hr IVPB Q8HR [facility] Rx# :[id number] Oral 236 100 546 Output: Urine 425 425 700 Uretheral (Concepcion) 350 Other: Voiding Method Indwelling Catheter Indwelling Catheter Indwelling Catheter # Bowel Movements 1 - Exam patient is alert and awake in no distress. Offers no complaints. Continues to have hoarse voice. Examination remains unchanged. Reflexes are trace to 1 in the upper limbs. Absent in the lower limbs. - Labs CBC & Chem 7: 04/21/25 07:22 04/21/25 07:22 Labs: Abnormal Lab Results - Last 24 Hours (Table) 04/20/25 04/20/25 04/21/25 Range/Units 06:00 20:02 05:56 RBC (4.40-5.60) 10*6/uL MCV (80.0-97.0) fL MCHC (32.0-37.0) g/dL Lymphocytes # (0.90-5.00) 10*3/uL Monocytes # (0.20-1.00) 10*3/uL Eosinophils # (0.04-0.35) 10*3/uL ESR 49 H (0-20) mm/Hr Chloride (98-107) mmol/L Carbon Dioxide (22-30) mmol/L BUN (9-20) mg/dL Creatinine (0.66-1.25) mg/dL Glucose (74-99) mg/dL POC Glucose (mg/dL) 125 H 126 H (70-110) mg/dL 04/21/25 04/21/25 04/21/25 Range/Units 07:22 07:22 11:34 RBC 4.11 L (4.40-5.60) 10*6/uL MCV 101.9 H (80.0-97.0) fL MCHC 31.0 L (32.0-37.0) g/dL Lymphocytes # 0.20 L (0.90-5.00) 10*3/uL Monocytes # 0.17 L (0.20-1.00) 10*3/uL Eosinophils # 0.00 L (0.04-0.35) 10*3/uL ESR (0-20) mm/Hr Chloride 96 L (98-107) mmol/L Carbon Dioxide 38 H (22-30) mmol/L BUN 23 H (9-20) mg/dL Creatinine 0.50 L (0.66-1.25) mg/dL Glucose 135 H (74-99) mg/dL POC Glucose (mg/dL) 130 H (70-110) mg/dL 04/21/25 Range/Units 16:31 RBC (4.40-5.60) 10*6/uL MCV (80.0-97.0) fL MCHC (32.0-37.0) g/dL Lymphocytes # (0.90-5.00) 10*3/uL Monocytes # (0.20-1.00) 10*3/uL Eosinophils # (0.04-0.35) 10*3/uL ESR (0-20) mm/Hr Chloride (98-107) mmol/L Carbon Dioxide (22-30) mmol/L BUN (9-20) mg/dL Creatinine (0.66-1.25) mg/dL Glucose (74-99) mg/dL POC Glucose (mg/dL) 125 H (70-110) mg/dL Microbiology - Last 24 Hours (Table) 04/20/25 09:02 Gram Stain - Preliminary Sputum Sputum Culture - Preliminary 04/18/25 20:50 Blood Culture - Preliminary Blood Assessment and Plan Assessment: * Dysphagia, unclear cause. * Aspiration pneumonia * Probable peripheral neuropathy. Patient has high arched feet and hammertoes. * Diabetes, in remission since weight loss * Hard of hearing * Hyperlipidemia * Osteoarthritis * Ex tobacco use Plan: * Patient's dysphagia is of unclear cause. No obvious evidence of motor neuron disease noticed. No muscle fasciculations, atrophy. He does have evidence of peripheral neuropathy with evidence of high arched feet and hammertoes. Patient also has balance issues. Recommend EMG and nerve conduction studies of bilateral lower limbs as an outpatient to evaluate for peripheral neuropathy, rule out any evidence of motor neuron disease. * Await acetylcholine receptor antibodies. * B12 610, hemoglobin A1c 5.4 * Patient currently on Zosyn for pneumonia. Also on methylprednisolone 40 mg every 12 hours. * DVT prophylaxis: On Lovenox. * Dr. Sander Eng to resume neurology service in the morning.
[2025-04-22 05:14] LABS: Basophils # (A) 0.01 10*3/uL (0.00-0.10); Basophils % (A) 0.1 %; Eosinophils # (A) 0.00 10*3/uL (0.04-0.35); Eosinophils % (A) 0.0 %; HCT 40.7 % (39.6-50.0); HGB 12.9 g/dL (13.0-17.0); Lymphocytes # (A) 0.37 10*3/uL (0.90-5.00); Lymphocytes % (A) 4.9 %; MCH 31.5 pg (27.0-32.0); MCHC 31.7 g/dL (32.0-37.0); MCV 99.3 fL (80.0-97.0); Monocytes # (A) 0.34 10*3/uL (0.20-1.00); Monocytes % (A) 4.5 %; Neutrophils # (A) 6.78 10*3/uL (1.80-7.70); Neutrophils % (A) 89.8 %; Platelet Count 162 10*3/uL (140-440); RBC 4.10 10*6/uL (4.40-5.60); RDW 15.0 % (11.5-14.5); WBC 7.55 10*3/uL (4.50-10.00)
[2025-04-22 05:29] LABS: African American GFR (CKD) >90 (>60 ml/min/1.73 sqM); Anion Gap 5 mmol/L; Blood Urea Nitrogen 24 mg/dL (9-20); Calcium 9.2 mg/dL (8.4-10.2); Carbon Dioxide 37 mmol/L (22-30); Chloride 92 mmol/L (98-107); Glucose 100 mg/dL (74-99); Non-African American GFR(CKD) >90 (>60 ml/min/1.73 sqM); Potassium 4.6 mmol/L (3.5-5.1); Sodium 134 mmol/L (137-145)
[2025-04-22 06:18] LABS: Glucose,Whole Blood 118 mg/dL (70-110)
--- NOTE | 2025-04-22 08:31 | P.PN ---
Subjective Progress Note Date: 04/22/25 The patient was seen and evaluated this morning. He is in atrial fibrillation with controlled heart rate not on any anticoagulation because of history of falling and bleeding. The echo still pending. The physical examination is remarkable for irregular rhythm with diminished breathing sounds bilaterally and mild bilateral expiratory wheezing and no edema was noted. IMPRESSION: New onset of paroxysmal atrial fibrillation Acute hypoxic and hypercapnic respiratory failure Bilateral pneumonia History of COPD Elevated troponins, type II VT secondary to oxygen supply/demand mismatch History of hyperlipidemia PLAN: Start low-dose digoxin Not a candidate anticoagulation due to frequent falls Follow-up with the echo Objective - Vital Signs Vital signs: Vital Signs Temp 98 F 04/21/25 19:40 Pulse 81 04/22/25 03:40 Resp 18 04/22/25 03:40 BP 111/71 04/22/25 03:40 Pulse Ox 95 04/22/25 03:40 FiO2 40 04/21/25 00:00 Intake & Output 04/21/25 04/22/25 04/22/25 18:59 06:59 18:59 Intake Total 546 100 Output Total 700 Balance -154 100 Weight 54.5 kg Intake: Oral 546 100 Output: Urine 700 Uretheral (Concepcion) 350 Other: Voiding Method External Catheter Diaper # Voids 4 - Labs CBC & Chem 7: 04/22/25 04:46 04/22/25 04:46 Labs: Abnormal Lab Results - Last 24 Hours (Table) 04/21/25 04/21/25 04/21/25 Range/Units 11:34 16:31 20:21 RBC (4.40-5.60) 10*6/uL Hgb (13.0-17.0) g/dL MCV (80.0-97.0) fL MCHC (32.0-37.0) g/dL Immature Gran # (0.00-0.04) 10*3/uL Lymphocytes # (0.90-5.00) 10*3/uL Eosinophils # (0.04-0.35) 10*3/uL Sodium (137-145) mmol/L Chloride (98-107) mmol/L Carbon Dioxide (22-30) mmol/L BUN (9-20) mg/dL Creatinine (0.66-1.25) mg/dL Glucose (74-99) mg/dL POC Glucose (mg/dL) 130 H 125 H 156 H (70-110) mg/dL 04/22/25 04/22/25 04/22/25 Range/Units 04:46 04:46 06:13 RBC 4.10 L (4.40-5.60) 10*6/uL Hgb 12.9 L (13.0-17.0) g/dL MCV 99.3 H (80.0-97.0) fL MCHC 31.7 L (32.0-37.0) g/dL Immature Gran # 0.05 H (0.00-0.04) 10*3/uL Lymphocytes # 0.37 L (0.90-5.00) 10*3/uL Eosinophils # 0.00 L (0.04-0.35) 10*3/uL Sodium 134 L (137-145) mmol/L Chloride 92 L (98-107) mmol/L Carbon Dioxide 37 H (22-30) mmol/L BUN 24 H (9-20) mg/dL Creatinine 0.44 L (0.66-1.25) mg/dL Glucose 100 H (74-99) mg/dL POC Glucose (mg/dL) 118 H (70-110) mg/dL Microbiology - Last 24 Hours (Table) 04/18/25 20:50 Blood Culture - Preliminary Blood 04/20/25 09:02 Gram Stain - Preliminary Sputum Sputum Culture - Preliminary
[2025-04-22] MEDS: IOPAMIDOL CONTRAST (ORAL USE) VIAL PO PRN (10:24)
[2025-04-22 13:30] LABS: Glucose,Whole Blood 133 mg/dL (70-110)
--- NOTE | 2025-04-22 13:32 | CT ---
EXAMINATION TYPE: CT abdomen pelvis wo con DATE OF EXAM: 04/22/2025 12:51 PM COMPARISON: None. CLINICAL INDICATION: Male, 84 years old with history of weigth loss, malignancy?, weight loss, malign johnna? TECHNIQUE: Axial images with sagittal coronal reformats. Examination of the solid and hollow viscera is limited given the lack of contrast. CT DLP: 763 mGycm, Automated exposure control for dose reduction was used. FINDINGS: LUNG BASES: No evidence for nodule. No evidence for infiltrate. Basilar fibrosis and small effusions. LIVER/GB: Small gallstone noted. No space-occupying hepatic lesion. PANCREAS: No pancreatic mass identified. No inflammatory process seen. SPLEEN: No evidence for splenomegaly. No intrasplenic lesions seen. ADRENALS: No adrenal nodules identified. No evidence for thickening. KIDNEYS: No evidence for renal mass. No nephrolithiasis. No hydronephrosis. BOWEL: Appendix has a normal appearance. No evidence of bowel obstruction. No inflammatory process. Lymph nodes: No evidence for adenopathy greater than 1 cm. Abdominal aorta: Atheromatous changes seen. No evidence for aneurysm. Genital organs: No significant abnormality. Other: Large right inguinal hernia containing small and large bowel measuring at least 15 cm cranioca udal dimension by 7 cm transversely. No signs of strangulation. IMPRESSION: 1.Large right inguinal hernia containing small and large bowel measuring at least 15 cm craniocaudal dimension by 7 cm transversely. No signs of strangulation. 2 nonobstructing nephrolithiasis [facility], , 04/22/2025 1:30 PM
[2025-04-22 14:15] VITALS: BMI 17.7
--- NOTE | 2025-04-22 14:28 | FL ---
EXAMINATION TYPE: FL barium swallow w video DATE OF EXAM: 04/22/2025 CLINICAL HISTORY: 84-year-old male with dysphasia, in patient with trouble swallowing TECHNIQUE: Deglutition study is performed utilizing thin liquid barium, honey and nectar thick liqui d barium, barium thick pudding, and barium coated cracker. Total dose area product (DAP) in uGy*m?, mGy*cm? (or similar): 150 mGycm2 Total fluoroscopy time: 3 minutes 49 seconds. Total images: None. Real-time fluoroscopy support was provided to speech pathology. COMPARISON: None. FINDINGS: There is gross silent aspiration with thin liquid and nectar liquid consistency. There is deep penetr ation with honey liquid, pureed, and solid consistencies. Moderate to large vallecular residuals especially with solids. Delayed swallow. IMPRESSION: Gross silent aspiration with thin liquid and nectar liquid consistency. Deep penetration with the other tested consistencies. Please refer to speech therapist notes for further details if necessary. [facility], , 04/22/2025 2:25 PM
--- NOTE | 2025-04-22 14:37 | P.CONS ---
History of Present Illness - Reason for Consult Consult date: 04/22/25 Dysphagia Requesting physician: Hafsa Lucas - Chief Complaint Fall, weakness - History of Present Illness This a pleasant 84-year-old male with multiple comorbidities including diabetes mellitus, hyperlipidemia, osteoarthritis, history of pneumonia, and unintentional weight loss who was brought into the emergency department by EMS after falling. He was admitted for acute hypoxic respiratory failure and elevated troponins he was started on IV heparin. Apparently patient has been having some difficulty with swallowing and hoarseness with talking. He had a swallow evaluation with speech therapy with findings of mild to moderate oropharyngeal dysfunction with recommended ground diet. Gastroenterology was consulted secondary to dysphagia. Patient went down for modified barium swallow there is no report but speaking to the nurse apparently patient did aspirate on thin liquids. Recommendation for ground diet with nectar thickened liquids and reevaluation tomorrow. Patient states he has no difficulty with swallowing. No pain with swallowing. States not coughing with swallowing. States he has had weight loss over the last 6 to 7 years but that secondary to his passing away and he does not cook or he just cook small meals. Denies any abdominal pa in, nausea or vomiting. Review of Systems REVIEW OF SYSTEMS: CARDIOPULMONARY: No chest pain or shortness of breath. Gastrointestinal: No abdominal pain. No nausea or vomiting. No hematemesis, coffee-ground emesis. No rectal bleeding, or melena. Difficulty with swal lowing, unintentional weight loss. GENITOURINARY: No dysuria or hematuria. MUSCULOSKELETAL: Reports normal range of motion., Joint pain. SKIN: No rashes. No jaundice. ENDOCRINE: No chills, fevers. No excessive weight gain or loss. No polydipsia or polyuria. PSYCHIATRIC: Unremarkable. NEUROLOGY: No change in mental status. Denies dizziness, headache. Weakness with fall. ENT: Vision unremarkable. CONSTITUTIONAL: Unintentional weight loss. No fever, chills, night sweats. Past Medical History Past Medical History: Diabetes Mellitus, Eye Disorder, Hyperlipidemia, Osteoarthritis (OA), Pneumonia Additional Past Medical History / Comment(s): Hx pneumonia X3, last 5 yrs ago, hyperlipemia WNL on medication, Diabetes resolved 4 yrs ago after diet changes. Current bilateral cataracts. History of Any Multi-Drug Resistant Organisms: None Reported Past Surgical History: Hernia Repair Additional Past Surgical History / Comment(s): bilateral cataract removed 8 Past Anesthesia/Blood Transfusion Reactions: No Reported Reaction Past Psychological History: Depression Additional Psychological History / Comment(s): No Meds. Smoking Status: Former smoker Past Alcohol Use History: None Reported Additional Past Alcohol Use History / Comment(s): Smoked >1PPD for 6 yrs, quit in 1991. Past Drug Use History: None Reported - Past Family History Father Family Medical History: Cancer Additional Family Medical History / Comment(s): Stomach Cancer Medications and Allergies Home Medications Medication Instructions Recorded Confirmed Type No Known Home Medications 04/18/25 04/18/25 History Allergies Allergy/AdvReac Type Severity Reaction Status Date / Time No Known Allergies Allergy Verified 04/18/25 19:49 Physical Exam Vitals: Vital Signs Temp Pulse Pulse Resp BP Pulse Ox 04/22/25 09:41 84 04/22/25 09:40 84 04/22/25 09:25 84 04/22/25 03:40 81 18 111/71 95 04/22/25 00:00 101 H 18 106/66 94 L 04/21/25 19:40 98 F 105 H 18 110/69 90 L 04/21/25 18:58 90 04/21/25 18:48 90 04/21/25 18:36 90 04/21/25 16:10 98.1 F 99 18 88/41 92 L 04/21/25 11:35 95 18 103/36 97 04/21/25 11:28 92 Intake and Output 04/21/25 04/22/25 04/22/25 22:59 06:59 14:59 Intake Total 100 118 Balance 100 118 Intake: Oral 100 118 Other: Voiding Method Diaper Diaper # Voids 4 Weight 54.5 kg General appearance: The patient is alert, oriented, appears in no acute distress. HET: Head is normocephalic and atraumatic. Conjunctiva pink. Sclera anicteric. Neck: Supple without lymphadenopathy. Trachea midline. Heart: Regular. Lungs: Equal expansion, normal respiratory effort. Abdomen: Soft, nontender, nondistended. Skin: No rashes. No jaundice. Extremities: Normal skin color and turgor. No pedal edema. Neurological: No focal deficits. Alert and oriented x3. Results CBC & Chem 7: 04/22/25 04:46 04/22/25 04:46 Labs: Abnormal Lab Results - Last 24 Hours (Table) 04/21/25 04/21/25 04/21/25 Range/Units 11:34 16:31 20:21 RBC (4.40-5.60) 10*6/uL Hgb (13.0-17.0) g/dL MCV (80.0-97.0) fL MCHC (32.0-37.0) g/dL Immature Gran # (0.00-0.04) 10*3/uL Lymphocytes # (0.90-5.00) 10*3/uL Eosinophils # (0.04-0.35) 10*3/uL Sodium (137-145) mmol/L Chloride (98-107) mmol/L Carbon Dioxide (22-30) mmol/L BUN (9-20) mg/dL Creatinine (0.66-1.25) mg/dL Glucose (74-99) mg/dL POC Glucose (mg/dL) 130 H 125 H 156 H (70-110) mg/dL 04/22/25 04/22/25 04/22/25 Range/Units 04:46 04:46 06:13 RBC 4.10 L (4.40-5.60) 10*6/uL Hgb 12.9 L (13.0-17.0) g/dL MCV 99.3 H (80.0-97.0) fL MCHC 31.7 L (32.0-37.0) g/dL Immature Gran # 0.05 H (0.00-0.04) 10*3/uL Lymphocytes # 0.37 L (0.90-5.00) 10*3/uL Eosinophils # 0.00 L (0.04-0.35) 10*3/uL Sodium 134 L (137-145) mmol/L Chloride 92 L (98-107) mmol/L Carbon Dioxide 37 H (22-30) mmol/L BUN 24 H (9-20) mg/dL Creatinine 0.44 L (0.66-1.25) mg/dL Glucose 100 H (74-99) mg/dL POC Glucose (mg/dL) 118 H (70-110) mg/dL Microbiology - Last 24 Hours (Table) 04/20/25 09:02 Gram Stain - Preliminary Sputum Sputum Culture - Preliminary Gram Neg Bacilli 04/18/25 20:50 Blood Culture - Preliminary Blood Comments: CT abdomen and pelvis reports large right inguinal hernia containing small and large bowel measuring at least 15 cm cranial caudal dimension by 7 cm transversely. No signs of strangulation. 2 nonobstructing nephrolithiasis Assessment and Plan (1) Dysphagia Narrative/Plan: 84-year-old male with unintentional weight loss and evidence of aspiration was swallowing and modified barium study with mild to moderate oropharyngeal dysfunction noted per speech pathologist with recommendation to proceed with ground diet and nectar thickened liquids with reevaluation. Gastroenterology will follow along. Patient denies any difficulty with swallowing, no difficulty with pain with swallowing and states weight loss has been over the last 6 to 7 years secondary to his passing and him not cooking. Will await further recommendations from speech therapy and medical team regarding possible need for upper endoscopy and possible PEG tube placement for nutrition. Current Visit: Yes Status: Acute Code(s): R13.10 - DYSPHAGIA, UNSPECIFIED SNOMED Code(s): 81238492 (2) Acute hypoxic respiratory failure Current Visit: Yes Status: Acute Code(s): J96.01 - ACUTE RESPIRATORY FAILURE WITH HYPOXIA SNOMED Code(s): 25311630 (3) COPD (chronic obstructive pulmonary disease) Current Visit: Yes Status: Acute Code(s): J44.9 - CHRONIC OBSTRUCTIVE PULMO NARY DISEASE, UNSPECIFIED SNOMED Code(s): 53793293 (4) Pneumonia Current Visit: Yes Status: Acute Code(s): J18.9 - PNEUMONIA, UNSPECIFIED ORGANISM SNOMED Code(s): 737880685 Plan: 1. Continue symptomatic and supportive care 2. Continue with dysphagia ground diet and nectar thickened liquids per recommendations from speech pathologist 3. Speech pathologist to reevaluate patient tomorrow with further recommendations 4. We will follow along closely, further recommendations forthcoming based on clinical course Thank you for this consultation, we will continue to follow. Dr. Samantha Bell I agree with the dictator's note, documented as a scribe by Shea Madrid.
[2025-04-22] MEDS ORDERED: ALPRAZolam 0.25 MG TAB PO PRN (16:04)
[2025-04-22] MEDS: LORazepam 1 MG/0.5 ML VIAL IV PRN (16:27)
[2025-04-22 17:04] LABS: Glucose,Whole Blood 114 mg/dL (70-110)
--- NOTE | 2025-04-22 17:41 | P.PN ---
Subjective Progress Note Date: 04/22/25 Patient currently being evaluated in the emergency department, he is comatose unable to provide information. According to the emergency department note, came in with increased generalized weakness. He had a fall. No reported head trauma. Noted some increased sputum production, shortness of breath, and voice changes. Reportedly, does not take any medications at home. Workup in the ED including CT brain and C-spine which did not show any acute intracranial process. Some nonspecific white matter changes, additional remote supratentorial and infratentorial injuries. Age-indeterminate compression deformity of T1 vertebral body with less than 50% body. Height loss. No retropulsion. Biapical lung seen with diffuse emphysematous changes. Linear foci of air seen in the left pleural/subpleural right apical area, likely artifact. No discernible pneumothorax seen. No chest CT was performed. There was a chest x- ray showing bibasilar airspace opacities right greater than left. Concerning fo r pneumonia. CBC unremarkable for leukocytosis. Hemoglobin 13.2 g/dL. Platelets 155. CMP with sodium 140, potassium 4, chloride 98, serum bicarb 34, BUN 30, creatinine 0.61, glucose 176. 3.3 is down to 1.5. Troponin 0.55. NT proBNP significant elevated 12,500. Repeat EKG showing normal sinus rhythm, no acute ST segment elevations or T wave inversions. Patient previously systemically heparinized. Also started on combination of empiric antibiotics in the form azithromycin and Rocephin. Also previously given some IV Benadryl. Currently, evaluating this patient Emergency Department. He is comatose. Unresponsive even to painful stimuli. On 15 L NRB. I placed the patient on BiPAP. Pressure settings 15/5 and FiO2 to be titrated. ABG drawn including a PaO2 of 233, pCO2 95, pH of 7.19, consistent with severe hypercapnic respiratory failure. He is a DNR/DO NOT INTUBATE, this was confirmed by his family. On today's evaluation of 04/20/2025, the patient is being seen for a follow-up. The patient is still being treated for an acute hypoxic marilee failure and the patient is currently being treated for bilateral lower lobe pneumonia. He is currently off the BiPAP. He has a DNR/DNI CODE STATUS. Procalcitonin level has been low. The patient is currently on oxygen at 3 L/min nasal cannula. I was concerned of the malignancy. The patient was having chronic hoarseness. A CAT scan of the chest was ordered. The CAT scan of the neck was also ordered. No significant abnormalities in the neck. CAT scan of the chest showed extensive emphysema, minimal mediastinal lymphadenopathy, and aortic root was measuring 4.1 cm in size. The patient also had small bilateral pleural effusion and bilateral lower lobe consolidation. He remains on broad-spectrum antibiotics. The patient remains on IV Zosyn. Remains on bronchodilators. Remains on IV Solu-Medrol. Oxygenation is stable at 3 L/min nasal cannula with a pulse ox of 95%. On 04/21/2025, the patient is being seen for a follow-up. The patient has no specific complaints. Doing well. Overall condition is improved compared to yesterday and the patient seems to be less bronchospastic and wheezy and the cough and congestion is also improved. The patient remains on DuoNeb and blood treatments [id number]. IV Solu-Medrol. IV Zosyn. Sputum sample and blood culture still negative for now. Remains on oxygen and patient is currently on room air with a pulse ox of 92%. The patient is seen today April 22, 2025 in follow-up on the selective care unit. He is currently resting in bed. Awake and alert in no acute distress. He is quite agitated and insisting on going home. His son is at the bedside. He is maintaining O2 saturations in the 90s on 4 L/min per nasal cannula. He failed his swallow evaluation. Suspect continued aspiration. Sputum culture with gram-negative bacilli. Blood culture pending. White count 7.5. Hemoglobin 12.9. Platelets 162. Sodium 134. Potassium 4.6. Bicarb 37. BUN 24. C reatinine 0.44. Glucose 100. He is continued on DuoNeb inhalations, Pulmicort and Perforomist inhalations, IV Solu-Medrol. He remains on Zosyn. Lovenox for DVT prophylaxis. Objective - Vital Signs Vital signs: Vital Signs Temp 98.1 F 04/22/25 10:00 Pulse 90 04/22/25 10:00 Resp 18 04/22/25 10:00 BP 115/77 04/22/25 10:00 Pulse Ox 97 04/22/25 10:00 FiO2 40 04/21/25 00:00 Intake & Output 04/21/25 04/22/25 04/22/25 18:59 06:59 18:59 Intake Total 546 100 118 Output Total 700 Balance -154 100 118 Weight 54.5 kg 54.5 kg Intake: Oral 546 100 118 Output: Urine 700 Uretheral (Concepcion) 350 Other: Voiding Method External Catheter Diaper Diaper # Voids 4 2 - Exam GENERAL EXAM: Alert, agitated, restless, 85-year-old male, on 4 L of oxygen by nasal cannula HEAD: Normocephalic and atraumatic EYES: Normal reaction of pupils, equal size. NOSE: Clear with pink turbinates. THROAT: No erythema or exudates. NECK: No masses, no JVD. CHEST: No chest wall deformity. LUNGS: Equal air entry with no crackles, wheeze, rhonchi or dullness. CVS: S1 and S2 normal with no audible murmur, regular rhythm. No extra heart sounds ABDOMEN: No hepatosplenomegaly, active bowel sounds, no guarding or rigidity. SPINE: No scoliosis or deformity SKIN: No rashes CENTRAL NERVOUS SYSTEM: Agitated, restless. Tone is normal in all 4 extremities. EXTREMITIES: There is no peripheral edema, clubbing, or cyanosis. Peripheral pulses are intact. - Labs CBC & Chem 7: 04/22/25 04:46 04/22/25 04:46 Labs: Abnormal Lab Results - Last 24 Hours (Table) 04/21/25 04/22/25 04/22/25 Range/Units 20:21 04:46 04:46 RBC 4.10 L (4.40-5.60) 10*6/uL Hgb 12.9 L (13.0-17.0) g/dL MCV 99.3 H (80.0-97.0) fL MCHC 31.7 L (32.0-37.0) g/dL Immature Gran # 0.05 H (0.00-0.04) 10*3/uL Lymphocytes # 0.37 L (0.90-5.00) 10*3/uL Eosinophils # 0.00 L (0.04-0.35) 10*3/uL Sodium 134 L (137-145) mmol/L Chloride 92 L (98-107) mmol/L Carbon Dioxide 37 H (22-30) mmol/L BUN 24 H (9-20) mg/dL Creatinine 0.44 L (0.66-1.25) mg/dL Glucose 100 H (74-99) mg/dL POC Glucose (mg/dL) 156 H (70-110) mg/dL 04/22/25 04/22/25 04/22/25 Range/Units 06:13 13:25 16:58 RBC (4.40-5.60) 10*6/uL Hgb (13.0-17.0) g/dL MCV (80.0-97.0) fL MCHC (32.0-37.0) g/dL Immature Gran # (0.00-0.04) 10*3/uL Lymphocytes # (0.90-5.00) 10*3/uL Eosinophils # (0.04-0.35) 10*3/uL Sodium (137-145) mmol/L Chloride (98-107) mmol/L Carbon Dioxide (22-30) mmol/L BUN (9-20) mg/dL Creatinine (0.66-1.25) mg/dL Glucose (74-99) mg/dL POC Glucose (mg/dL) 118 H 133 H 114 H (70-110) mg/dL Microbiology - Last 24 Hours (Table) 04/20/25 09:02 Gram Stain - Preliminary Sputum Sputum Culture - Preliminary Gram Neg Bacilli 04/18/25 20:50 Blood Culture - Preliminary Blood Assessment and Plan Assessment: Acute hypoxemic and hypercapnic respiratory failure, initially placed on BiPAP, chest x-ray showing bibasilar airspace opacities right greater than left. Concerning for aspiration pneumonia. No pleural effusions. No evidence of pneumothorax. The patient is currently on 4 L nasal cannula. CAT scan of the chest showed advanced emphysema and bilateral lower lobe pulmonary infiltrates. No evidence of any malignancy. Sputum culture showing gram-negative bacilli COPD/emphysema Acute non-ST elevation AL, systemically heparinized Fall, CT brain and C-spine which did not show any acute intracranial process. Some nonspecific white matter changes, additional remote supratentorial and infratentorial injuries. Age-indeterminate compression deformity of T1 vertebral body with less than 50% body. Height loss. No retropulsion. Biapical lung seen with diffuse emphysematous changes. Linear foci of air seen in the left pleural/subpleural right apical area, likely artifact. No discernible pneumothorax seen Large right inguinal hernia containing small and large bowel. No signs of strangulation Nonobstructing nephrolithiasis Age-indeterminate T1 vertebral body compression deformity History of hyperlipidemia Severe protein calorie malnutrition Plan: The patient was seen and evaluated CT scan of the abdomen, labs and medications reviewed Microbiology reviewed Remains on Zosyn Continue DuoNeb inhalations Continue Pulmicort and Perforomist inhalations Continue IV Solu-Medrol Lovenox for DVT prophylaxis Titrate down the FiO2 as tolerated We will continue to follow I have personally seen and examined the patient, performed the documentation and the assessment and plan as written. Number of minutes spent on the visit: 10 Dictation was produced using [employer] dictation software. Please excuse any grammatical, word or spelling errors.
[2025-04-22 20:03] LABS: Glucose,Whole Blood 105 mg/dL (70-110)
[2025-04-22] MEDS ORDERED: LORazepam 1 MG/0.5 ML VIAL IV SCH (21:00)
[2025-04-22] MEDS: QUEtiapine 25 MG TAB PO SCH (23:11)
[2025-04-23 06:15] LABS: Glucose,Whole Blood 95 mg/dL (70-110)
--- NOTE | 2025-04-23 07:25 | CA ---
Transthoracic Echo Report Name: Jona Nixon Age: 84 Gender: M : 1940 Exam Date: 04/22/2025 09:22 Exam Location: [facility] Ht (in): 69 Wt (lb): 115 Ordering Physician: Cece Atkins DO Attending/Referring Phys: [id number], Milly Application Support Gabriela Burton, [facility] Procedure CPT: Indications: New heart failure, NSTemi Cardiac Hx: Technical Quality: Fair Contrast 1: Total Dose (mL): Contrast 2: Total Dose (mL): MEASUREMENTS (Male / Female) Normal Values 2D ECHO LV Diastolic Diameter PLAX 4.4 cm 4.2 - 5.9 / 3.9 - 5.3 cm LV Systolic Diameter PLAX 3.8 cm IVS Diastolic Thickness 0.9 cm 0.6 - 1.0 / 0.6 - 0.9 cm LVPW Diastolic Thickness 0.8 cm 0.6 - 1.0 / 0.6 - 0.9 cm LV Relative Wall Thickness 0.4 RV Internal Dim ED PLAX 2.7 cm LVOT Diameter 2.1 cm LA Systolic Diameter LX 4.0 cm 3.0 - 4.0 / 2.7 - 3.8 cm LV Diastolic Volume MOD BP 72.4 cm??? 67 - 155 / 56 - 104 cm??? LV Systolic Volume MOD BP 39.7 cm??? 22 - 58 / 19 - 49 cm??? LV Ejection Fraction MOD BP 45.2 % >= 55 % LV Cardiac Index MOD BP 1533.6 cm???/min???m??? LV Diastolic Volume MOD 4C 66.3 cm??? LV Systolic Volume MOD 4C 37.3 cm??? LV Ejection Fraction MOD 4C 43.7 % LV Cardiac Index MOD 4C 1359.2 cm???/min???m??? LV Diastolic Length 4C 7.1 cm LV Systolic Length 4C 6.5 cm LV Diastolic Volume MOD 2C 76.8 cm??? LV Systolic Volume MOD 2C 43.9 cm??? LV Ejection Fraction MOD 2C 42.9 % LV Cardiac Index MOD 2C 1544.6 cm???/min???m??? LV Diastolic Length 2C 7.3 cm LV Systolic Length 2C 6.5 cm LA Volume 88.7 cm??? 18 - 58 / 22 - 52 cm??? LA Volume Index 56.2 cm???/m??? 16 - 28 cm???/m??? M-MODE Aortic Root Diameter MM 4.0 cm LA Systolic Diameter MM 4.2 cm LA Ao Ratio MM 1.0 AV Cusp Separation MM 0.8 cm DOPPLER AV Peak Velocity 252.6 cm/s AV Peak Gradient 25.5 mmHg AV Mean Velocity 176.1 cm/s AV Mean Gradient 14.6 mmHg AV Velocity Time Integral 50.8 cm AI Peak Velocity 248.0 cm/s AI Peak Gradient 24.6 mmHg AI Pressure Half Time 946.1 ms LVOT Peak Velocity 102.9 cm/s LVOT Peak Gradient 4.2 mmHg LVOT Velocity Time Integral 20.6 cm LVOT Stroke Volume 73.9 cm??? LVOT Stroke Volume Index 45.2 ml/m??? LVOT Cardiac Index 3465.7 cm???/min???m??? AV Area Cont Eq vti 1.5 cm??? AV Area Cont Eq pk 1.5 cm??? MV Peak Velocity 128.8 cm/s MV Peak Gradient 6.6 mmHg MV Mean Velocity 80.7 cm/s MV Mean Gradient 3.0 mmHg MV Velocity Time Integral 32.9 cm MV Area PHT 2.8 cm??? Mitral E Point Velocity 92.8 cm/s Mitral A Point Velocity 116.1 cm/s Mitral E to A Ratio 0.8 MV Deceleration Time 273.0 ms TR Peak Velocity 273.1 cm/s TR Peak Gradient 29.8 mmHg Right Ventricular Systolic Press 34.9 mmHg FINDINGS Left Ventricle Left ventricular ejection fraction is estimated at 40 %. Left ventricular cavity size normal. Left ventricular wall thickness normal. Moderately reduced global left ventricular systolic function. Right Ventricle Mild right ventricular dilatation. Right ventricular systolic pressure within normal limits. Right Atrium Mild right atrial dilatation. Left Atrium Severely increased left atrial volume. Mitral Valve Thickened mitral valve without stenosis. [id number] mitral regurgitation. Posteriorly directed mitral regurgitation jet. Aortic Valve Aortic valve not well visualized. Moderate aortic stenosis with a peak gradient of 33 mmHg and a mean gradient of 19.3 mmHg. Mild aortic regurgitation. Tricuspid Valve Structurally normal tricuspid valve. Moderate tricuspid regurgitation. No tricuspid stenosis. Pulmonic Valve Structurally normal pulmonic valve. Trace to mild pulmonic regurgitation. No pulmonic stenosis. Pericardium No pericardial or pleural effusion. Aorta Mild aortic dilatation at the level of the sinuses of valsalva (root). CONCLUSIONS Moderate LV systolic dysfunction with an ejection fraction of 40% Moderate to severe mitral regurgitation Moderate aortic stenosis with a peak gradient of 33 mm send the mean gradient of 19 mm Mitral valve heavily calcified and thickened Moderate tricuspid regurgitation Previewed by: Dr. Dave Bell MD (Electronically Signed) Final Date: 23 April 2025 07:24
[2025-04-23] MEDS: ENOXAPARIN 40 MG/0.4 ML SYRINGE SQ SCH (09:10)
--- NOTE | 2025-04-23 09:49 | P.PN ---
Subjective Progress Note Date: 04/22/25 This is an 84-year-old male who was admitted with weight loss dysphagia also malnutrition highly concern for aspiration pneumonia is scheduled to undergo swallow evaluation with speech therapy today. Neurology evaluated the patient noted to have some peripheral neuropathy and also generalized weakness. Patient will need outpatient follow-up for further evaluation on discharge. Patient also being evaluated by GI for possible endoscopy and further evaluation of this dysphagia and tentatively may need a PEG tube ultimately as patient is known to be aspirating. Patient is high risk for aspiration recommend head of the bed elevated 35 to 45 degrees at all times and supervision with meals. Patient not tolerating much oral intake. Patient is extremely adamant he is going home today. Review of systems: Constitutional: No reports of fatigue, fever, or chills Cardiovascular: No reports of chest pain or palpitations Respiratory: No reports of shortness of breath or cough GI: No reports of nausea, no reports of vomiting, not tolerating much oral intake : No reports of dysuria or retention Neurovascular: reports of generalized weakness All medications have been reviewed PHYSICAL EXAMINATION: GENERAL: The patient is alert and oriented x 3, Well developed, elderly appearing, cachectic, ill-appearing, emaciated with significant muscle wasting noted HEENT: Pupils are round and equally reacting to light. EOMI. no scleral icterus. No conjunctival pallor. Normocephalic, atraumatic. No pharyngeal erythema. No thyromegaly. CARDIOVASCULAR: S1 and S2 muffled PULMONARY: diminished breath sounds bilaterally with no wheezing or rhonchi noted. ABDOMEN: soft. Nontender on exam. obese. non-distended, normoactive bowel sounds. No palpable organomegaly. MUSCULOSKELETAL: No joint swelling or deformity. EXTREMITIES: No cyanosis, clubbing, or pedal edema. Significant muscle wasting noted of upper and lower extremities including clavicle and facial areas NEUROLOGICAL: Gross neurological examination did not reveal any focal deficits. Diffuse weakness SKIN: No rashes. Assessment: Acute bilateral pneumonia, likely aspiration, present on admission Dysphagia Paroxysmal atrial fibrillation, not on anticoagulation per cardiology Severe weight loss and severe protein calorie malnutrition with a BMI of 18.1 Gait dysfunction and generalized weakness Diabetes mellitus, type II Hyperlipidemia GI prophylaxis DVT prophylaxis No code Plan: Recommend to continue with current medications and management with speech following and underwent a swallow evaluation and is likely aspirating and high risk for aspiration and is being placed on ground diet dysphagia with honey thickened liquids to reevaluate tomorrow to see how patient tolerated. Discussing possible PEG tube and dietary will need to be consulted along with general surgery. GI consulted for further possible evaluation of endoscopy With this dysphagia and pending at this time Follow-up on repeat labs and replace electrolytes per protocol Recommend PT/OT therapy evaluation Overall prognosis is guarded The impression and plan of care has been dictated by Shasta Arroyo, nurse practitioner as directed. Dr. Lance MD I have performed a history and examination and MDM of this patient, discussed the same with the dictator, and agree with the dictator's assessment and plan as written ,documented as a scribe. Based on total visit time, I have performed more than 50% of the visit. Any additional findings or plans will be noted. Objective - Vital Signs Vital signs: Vital Signs Temp 98.1 F 04/22/25 10:00 Pulse 90 04/22/25 10:00 Resp 18 04/22/25 10:00 BP 115/77 04/22/25 10:00 Pulse Ox 97 04/22/25 10:00 FiO2 40 04/21/25 00:00 Intake & Output 04/21/25 04/22/25 04/22/25 18:59 06:59 18:59 Intake Total 546 100 118 Output Total 700 Balance -154 100 118 Weight 54.5 kg 54.5 kg Intake: Oral 546 100 118 Output: Urine 700 Uretheral (Concepcion) 350 Other: Voiding Method External Catheter Diaper Diaper # Voids 4 2 - Labs CBC & Chem 7: 04/22/25 04:46 04/22/25 04:46 Labs: Abnormal Lab Results - Last 24 Hours (Table) 04/21/25 04/21/25 04/22/25 Range/Units 16:31 20:21 04:46 RBC 4.10 L (4.40-5.60) 10*6/uL Hgb 12.9 L (13.0-17.0) g/dL MCV 99.3 H (80.0-97.0) fL MCHC 31.7 L (32.0-37.0) g/dL Immature Gran # 0.05 H (0.00-0.04) 10*3/uL Lymphocytes # 0.37 L (0.90-5.00) 10*3/uL Eosinophils # 0.00 L (0.04-0.35) 10*3/uL Sodium (137-145) mmol/L Chloride (98-107) mmol/L Carbon Dioxide (22-30) mmol/L BUN (9-20) mg/dL Creatinine (0.66-1.25) mg/dL Glucose (74-99) mg/dL POC Glucose (mg/dL) 125 H 156 H (70-110) mg/dL 04/22/25 04/22/25 04/22/25 Range/Units 04:46 06:13 13:25 RBC (4.40-5.60) 10*6/uL Hgb (13.0-17.0) g/dL MCV (80.0-97.0) fL MCHC (32.0-37.0) g/dL Immature Gran # (0.00-0.04) 10*3/uL Lymphocytes # (0.90-5.00) 10*3/uL Eosinophils # (0.04-0.35) 10*3/uL Sodium 134 L (137-145) mmol/L Chloride 92 L (98-107) mmol/L Carbon Dioxide 37 H (22-30) mmol/L BUN 24 H (9-20) mg/dL Creatinine 0.44 L (0.66-1.25) mg/dL Glucose 100 H (74-99) mg/dL POC Glucose (mg/dL) 118 H 133 H (70-110) mg/dL Microbiology - Last 24 Hours (Table) 04/20/25 09:02 Gram Stain - Preliminary Sputum Sputum Culture - Preliminary Gram Neg Bacilli 04/18/25 20:50 Blood Culture - Preliminary Blood
--- NOTE | 2025-04-23 10:47 | P.PN ---
Subjective Progress Note Date: 04/23/25 Principal diagnosis: Dysphagia, aspiration This a pleasant 84-year-old male with multiple comorbidities including diabetes mellitus, hyperlipidemia, osteoarthritis, history of pneumonia, and unintentional weight loss who was brought into the emergency department by EMS after falling. He was admitted for acute hypoxic respiratory failure and elevated troponins he was started on IV heparin. Apparently patient has been having some difficulty with swallowing and hoarseness with talking. He had a swallow evaluation with speech therapy with findings of mild to moderate oropha ryngeal dysfunction with recommended ground diet. Gastroenterology was consulted secondary to dysphagia. Patient went down for modified barium swallow there is no report but speaking to the nurse apparently patient did aspirate on thin liquids. Recommendation for ground diet with nectar thickened liquids and reevaluation tomorrow. Patient states he has no difficulty with swallowing. No pain with swallowing. States not coughing with swallowing. States he has had weight loss over the last 6 to 7 years but that secondary to his passing away and he does not cook or he just cook small meals. Denies any abdominal pain, nausea or vomiting. 04/23/2025 Patient seen and examined today as a follow-up. Patient's son and [id number] are at the bedside. Patient just had some thickened liquids and has a residual cough seems to be clearing his throat some. He denies any abdominal pain nausea or vomiting. Awaiting reevaluation of swallow by speech pathologist. Discussed with patient and family may need to consider possible PEG tube placement for nutrition if patient fails swallow. They voiced that they discussed that yesterday and they do not wish to proceed with any procedure s and declined PEG tube with tube feedings. They are requesting hospice informational meeting. Objective - Vital Signs Vital signs: Vital Signs Temp 97.8 F 04/22/25 20:00 Pulse 98 04/23/25 04:00 Resp 20 04/23/25 04:00 BP 127/82 04/23/25 04:00 Pulse Ox 94 L 04/23/25 04:00 FiO2 40 04/21/25 00:00 Intake & Output 04/22/25 04/23/25 04/23/25 18:59 06:59 18:59 Intake Total 236 Output Total 500 200 Balance -264 -200 Weight 54.5 kg 55.5 kg Intake: Oral 236 Output: Urine 500 200 Other: Voiding Method Diaper Diaper External Catheter # Voids 2 - Exam General appearance: The patient is alert, oriented, appears in no acute distress. HET: Head is normocephalic and atraumatic. Conjunctiva pink. Sclera anicteric. Neck: Supple without lymphadenopathy. Abdomen: Soft, nontender, nondistended. Extremities: Normal skin color and turgor. No pedal edema Skin: No rashes, no jaundice Neurological: No focal deficits. Alert and oriented. - Labs CBC & Chem 7: 04/22/25 04:46 04/22/25 04:46 Labs: Abnormal Lab Results - Last 24 Hours (Table) 04/22/25 04/22/25 Range/Units 13:25 16:58 POC Glucose (mg/dL) 133 H 114 H (70-110) mg/dL Microbiology - Last 24 Hours (Table) 04/20/25 09:02 Gram Stain - Preliminary Sputum Sputum Culture - Preliminary Gram Neg Bacilli 04/18/25 20:50 Blood Culture - Preliminary Blood Assessment and Plan (1) Dysphagia Narrative/Plan: 84-year-old male with unintentional weight loss and evidence of aspiration was swallowing and modified barium study with mild to moderate oropharyngeal dysfunction noted per speech pathologist with recommendation to proceed with ground diet and nectar thickened liquids with reevaluation. Gastroenterology will follow along. Patient denies any difficulty with swallowing, no difficulty with pain with swallowing and states weight loss has been over the last 6 to 7 years secondary to his passing and him not cooking. Will await further recommendations from speech therapy and medical team regarding possible need for upper endoscopy and possible PEG tube placement for nutrition. 04/23/2025 patient reevaluated with family at the bedside. Has not been reevaluated yet by speech pathology however patient and family do not want PEG tube placed or tube feedings and are requesting hospice informational meeting and would like patient to going to hospice care. Current Visit: Yes Status: Acute Code(s): R13.10 - DYSPHAGIA, UNSPECIFIED SNOMED Code(s): 26184372 (2) Acute hypoxic respiratory failure Current Visit: Yes Status: Acute Code(s): J96.01 - ACUTE RESPIRATORY FAILURE WITH HYPOXIA SNOMED Code(s): 35182026 (3) COPD (chronic obstructive pulmonary disease) Current Visit: Yes Status: Acute Code(s): J44.9 - CHRONIC OBSTRUCTIVE PULMONARY DISEASE, UNSPECIFIED SNOMED Code(s): 59445308 (4) Pneumonia Current Visit: Yes Status: Acute Code(s): J18.9 - PNEUMONIA, UNSPECIFIED ORGANISM SNOMED Code(s): 442847427 (5) Silent aspiration Current Visit: Yes Status: Acute Code(s): T17.900A - UNSP FB IN RESP TRACT, PART UNSP CAUSING ASPHYX, INIT SNOMED Code(s): 516890878 Plan: 1. Continue symptomatic and supportive care 2. Diet per recommendations from speech pathology 3. Discussion was had with patient and family regarding possible need for PEG tube placement for malnutrition and to meet nutritional needs which they voiced they are not interested in PEG tube placement and tube feedings and are requesting hospice informational meeting and hospice care. Thank you for this consultation, we will sign off at this time. Dr. Samantha Bell I agree with the dictator's note, documented as a scribe by Shea Madrid.
[2025-04-23 11:30] LABS: Glucose,Whole Blood 191 mg/dL (70-110)
--- NOTE | 2025-04-23 12:37 | P.PN ---
Subjective Progress Note Date: 04/23/25 Patient currently being evaluated in the emergency department, he is comatose unable to provide information. According to the emergency department note, came in with increased generalized weakness. He had a fall. No reported head trauma. Noted some increased sputum production, shortness of breath, and voice changes. Reportedly, does not take any medications at home. Workup in the ED including CT brain and C-spine which did not show any acute intracranial process. Some nonspecific white matter changes, additional remote supratentorial and infratentorial injuries. Age-indeterminate compression deformity of T1 vertebral body with less than 50% body. Height loss. No retropulsion. Biapical lung seen with diffuse emphysematous changes. Linear foci of air seen in the left pleural/subpleural right apical area, likely artifact. No discernible pneumothorax seen. No chest CT was performed. There was a chest x- ray showing bibasilar airspace opacities right greater than left. Concerning fo r pneumonia. CBC unremarkable for leukocytosis. Hemoglobin 13.2 g/dL. Platelets 155. CMP with sodium 140, potassium 4, chloride 98, serum bicarb 34, BUN 30, creatinine 0.61, glucose 176. 3.3 is down to 1.5. Troponin 0.55. NT proBNP significant elevated 12,500. Repeat EKG showing normal sinus rhythm, no acute ST segment elevations or T wave inversions. Patient previously systemically heparinized. Also started on combination of empiric antibiotics in the form azithromycin and Rocephin. Also previously given some IV Benadryl. Currently, evaluating this patient Emergency Department. He is comatose. Unresponsive even to painful stimuli. On 15 L NRB. I placed the patient on BiPAP. Pressure settings 15/5 and FiO2 to be titrated. ABG drawn including a PaO2 of 233, pCO2 95, pH of 7.19, consistent with severe hypercapnic respiratory failure. He is a DNR/DO NOT INTUBATE, this was confirmed by his family. On today's evaluation of 04/20/2025, the patient is being seen for a follow-up. The patient is still being treated for an acute hypoxic marilee failure and the patient is currently being treated for bilateral lower lobe pneumonia. He is currently off the BiPAP. He has a DNR/DNI CODE STATUS. Procalcitonin level has been low. The patient is currently on oxygen at 3 L/min nasal cannula. I was concerned of the malignancy. The patient was having chronic hoarseness. A CAT scan of the chest was ordered. The CAT scan of the neck was also ordered. No significant abnormalities in the neck. CAT scan of the chest showed extensive emphysema, minimal mediastinal lymphadenopathy, and aortic root was measuring 4.1 cm in size. The patient also had small bilateral pleural effusion and bilateral lower lobe consolidation. He remains on broad-spectrum antibiotics. The patient remains on IV Zosyn. Remains on bronchodilators. Remains on IV Solu-Medrol. Oxygenation is stable at 3 L/min nasal cannula with a pulse ox of 95%. On 04/21/2025, the patient is being seen for a follow-up. The patient has no specific complaints. Doing well. Overall condition is improved compared to yesterday and the patient seems to be less bronchospastic and wheezy and the cough and congestion is also improved. The patient remains on DuoNeb and blood treatments [id number]. IV Solu-Medrol. IV Zosyn. Sputum sample and blood culture still negative for now. Remains on oxygen and patient is currently on room air with a pulse ox of 92%. The patient is seen today April 22, 2025 in follow-up on the selective care unit. He is currently resting in bed. Awake and alert in no acute distress. He is quite agitated and insisting on going home. His son is at the bedside. He is maintaining O2 saturations in the 90s on 4 L/min per nasal cannula. He failed his swallow evaluation. Suspect continued aspiration. Sputum culture with gram-negative bacilli. Blood culture pending. White count 7.5. Hemoglobin 12.9. Platelets 162. Sodium 134. Potassium 4.6. Bicarb 37. BUN 24. C reatinine 0.44. Glucose 100. He is continued on DuoNeb inhalations, Pulmicort and Perforomist inhalations, IV Solu-Medrol. He remains on Zosyn. Lovenox for DVT prophylaxis. The patient is seen today April 23, 2025 in follow-up on the selective care unit. He is currently sitting up in a chair at the bedside. Family members are present. He is a little less agitated currently. He remains in aspiration precautions. He is continued on DuoNeb and elations, Pulmicort and Perforomist inhalations, Solu-Medrol. Antibiotics in the form of Zosyn. Lovenox for DVT prophylaxis. Sputum culture positive for Serratia marcescens, Renea and Saccharomyces cerevisiae. Glucose 191. Objective - Vital Signs Vital signs: Vital Signs Temp 97.8 F 04/23/25 12:04 Pulse 88 04/23/25 09:02 Resp 18 04/23/25 12:04 BP 117/75 04/23/25 12:04 Pulse Ox 95 04/23/25 12:04 FiO2 40 04/21/25 00:00 Intake & Output 04/22/25 04/23/25 04/23/25 18:59 06:59 18:59 Intake Total 236 Output Total 500 200 Balance -264 -200 Weight 54.5 kg 55.5 kg Intake: Oral 236 Output: Urine 500 200 Other: Voiding Method Diaper Diaper Diaper External Catheter External Catheter # Voids 2 # Bowel Movements 1 - Labs CBC & Chem 7: 04/22/25 04:46 04/22/25 04:46 Labs: Abnormal Lab Results - Last 24 Hours (Table) 04/22/25 04/22/25 04/23/25 Range/Units 13:25 16:58 11:28 POC Glucose (mg/dL) 133 H 114 H 191 H (70-110) mg/dL Microbiology - Last 24 Hours (Table) 04/20/25 09:02 Gram Stain - Final Sputum Sputum Culture - Final Serratia marcescens Renea albicans Saccaromyces cerevisiae
--- NOTE | 2025-04-23 14:15 | P.PN ---
Subjective Progress Note Date: 04/23/25 The patient was seen and evaluated this morning. He is in atrial fibrillation with controlled heart rate not on any anticoagulation because of history of falling and bleeding. The echo still pending. The physical examination is remarkable for irregular rhythm with diminished breathing sounds bilaterally and mild bilateral expiratory wheezing and no edema was noted. 04/23/2025 Patient seen and examined. Blood pressure 117/75, heart rate 84, pulse ox 95% on 5 L nasal cannula. Patient remains in a sinus rhythm. Echocardiogram reveals EF of 40%, moderate to severe mitral regurgitation, moderate aortic stenosis with peak gradient of 33 and mean gradient of 19 mm. Mitral valve heavily calcified and thickened. Moderate tricuspid regurgitation. The physical examination is remarkable for irregular rhythm with diminished breathing sounds bilaterally and mild bilateral expiratory wheezing and no edema was noted. IMPRESSION: New onset of paroxysmal atrial fibrillation, currently sinus rhythm Acute hypoxic and hypercapnic respiratory failure Bilateral pneumonia History of COPD Elevated troponins, type II PR secondary to oxygen supply/demand mismatch History of hyperlipidemia PLAN: Continue patient on aspirin, atorvastatin, low-dose digoxin Not a candidate anticoagulation due to frequent falls Nurse practitioner note has been reviewed, I agree with documented findings and plan of care. Patient was seen and examined. Objective - Vital Signs Vital signs: Vital Signs Temp 97.5 F L 04/23/25 09:02 Pulse 88 04/23/25 09:02 Resp 14 04/23/25 09:02 BP 103/59 04/23/25 09:02 Pulse Ox 98 04/23/25 09:02 FiO2 40 04/21/25 00:00 Intake & Output 04/22/25 04/23/25 04/23/25 18:59 06:59 18:59 Intake Total 236 Output Total 500 200 Balance -264 -200 Weight 54.5 kg 55.5 kg Intake: Oral 236 Output: Urine 500 200 Other: Voiding Method Diaper Diaper External Catheter # Voids 2 - Labs CBC & Chem 7: 04/22/25 04:46 04/22/25 04:46 Labs: Abnormal Lab Results - Last 24 Hours (Table) 04/22/25 04/22/25 Range/Units 13:25 16:58 POC Glucose (mg/dL) 133 H 114 H (70-110) mg/dL Microbiology - Last 24 Hours (Table) 04/20/25 09:02 Gram Stain - Preliminary Sputum Sputum Culture - Preliminary Gram Neg Bacilli
[2025-04-23 16:43] LABS: Glucose,Whole Blood 104 mg/dL (70-110)
[2025-04-23] MEDS: FLUCONAZOLE IN NACL,ISO-OSM 200 MG in SALINE 1 100ML.BAG IVPB SCH (18:49)
[2025-04-23 21:03] LABS: Glucose,Whole Blood 143 mg/dL (70-110)
--- NOTE | 2025-04-24 05:28 | P.PN ---
Subjective Progress Note Date: 04/23/25 This is an 84-year-old male who was admitted with weight loss dysphagia also malnutrition highly concern for aspiration pneumonia is scheduled to undergo swallow evaluation with speech therapy today. Neurology evaluated the patient noted to have some peripheral neuropathy and also generalized weakness. Patient will need outpatient follow-up for further evaluation on discharge. Patient also being evaluated by GI for possible endoscopy and further evaluation of this dysphagia and tentatively may need a PEG tube ultimately as patient is known to be aspirating. Patient is high risk for aspiration recommend head of the bed elevated 35 to 45 degrees at all times and supervision with meals. Patient not tolerating much oral intake. Patient is extremely adamant he is going home today. 04/23/2025 Patient is seen in follow-up today with multiple consultations following. Patient was seen by speech and is continued on dysphagia diet for palliative measures as patient is likely aspirating. Patient and family are adamant against the PEG tube and discussing possibly transitioning to ECF with hospice. Overall prognosis is poor this would be appropriate. Patient is sitting up in the chair and denies any chest pain or shortness of breath. Patient reports he is tolerating his diet and denies any nausea or vomiting. Patient is significantly weak and would recommend getting up frequently and sitting in the chair more often. Review of systems: Constitutional: No reports of fatigue, fever, or chills Cardiovascular: No reports of chest pain or palpitations Respiratory: No reports of shortness of breath or cough GI: No reports of nausea, no reports of vomiting, not tolerating much oral inta ke, but reports it is improving : No reports of dysuria or retention Neurovascular: reports of generalized weakness All medications have been reviewed PHYSICAL EXAMINATION: GENERAL: The patient is alert and oriented x 3, Well developed, elderly appearing, cachectic, ill-appearing, emaciated with significant muscle wasting noted HEENT: Pupils are round and equally reacting to light. EOMI. no scleral icterus. No conjunctival pallor. Normocephalic, atraumatic. No pharyngeal erythema. No th yromegaly. CARDIOVASCULAR: S1 and S2 muffled PULMONARY: diminished breath sounds bilaterally with no wheezing or rhonchi noted. ABDOMEN: soft. Nontender on exam. obese. non-distended, normoactive bowel sounds. No palpable organomegaly. MUSCULOSKELETAL: No joint swelling or deformity. EXTREMITIES: No cyanosis, clubbing, or pedal edema. Significant muscle wasting noted of upper and lower extremities including clavicle and facial areas NEUROLOGICAL: Gross neurological examination did not reveal any focal deficits. Diffuse weakness SKIN: No rashes. Assessment: Acute bilateral pneumonia, likely aspiration, present on admission Dysphagia Paroxysmal atrial fibrillation, not on anticoagulation per cardiology Severe weight loss and severe protein calorie malnutrition with a BMI of 18.1 Gait dysfunction and generalized weakness Diabetes mellitus, type II Hyperlipidemia GI prophylaxis DVT prophylaxis No code Plan: Recommend to continue with current medications and management with speech following and underwent a swallow evaluation and is likely aspirating and high risk for aspiration and is being placed on ground diet dysphagia with honey thickened liquids to reevaluate tomorrow to see how patient tolerated. Patient is tolerating thus far and denies any coughing or choking while eating. Discussed possible PEG tube and patient and family are against the PEG tube at this time. GI evaluated the patient with no further surgical interventions planned and discussed with family about PEG tube and family is refusing the PEG tube at this time. GI signing off Follow-up on repeat labs and replace electrolytes per protocol Recommend PT/OT therapy evaluation with case management/social work following working on discharge planning to [facility] Overall prognosis is guarded The impression and plan of care has been dictated by Shasta Arroyo, nurse practitioner as directed. Dr. Lance MD I have performed a history and examination and MDM of this patient, discussed t he same with the dictator, and agree with the dictator's assessment and plan as written ,documented as a scribe. Based on total visit time, I have performed more than 50% of the visit. Any additional findings or plans will be noted. Objective - Vital Signs Vital signs: Vital Signs Temp 97.5 F L 04/23/25 09:02 Pulse 88 04/23/25 09:02 Resp 14 04/23/25 09:02 BP 103/59 04/23/25 09:02 Pulse Ox 98 04/23/25 09:02 FiO2 40 04/21/25 00:00 Intake & Output 04/22/25 04/23/25 04/23/25 18:59 06:59 18:59 Intake Total 236 Output Total 500 200 Balance -264 -200 Weight 54.5 kg 55.5 kg Intake: Oral 236 Output: Urine 500 200 Other: Voiding Method Diaper Diaper External Catheter # Voids 2 - Labs CBC & Chem 7: 04/22/25 04:46 04/22/25 04:46 Labs: Abnormal Lab Results - Last 24 Hours (Table) 04/22/25 04/22/25 Range/Units 13:25 16:58 POC Glucose (mg/dL) 133 H 114 H (70-110) mg/dL Microbiology - Last 24 Hours (Table) 04/20/25 09:02 Gram Stain - Preliminary Sputum Sputum Culture - Preliminary Gram Neg Bacilli
[2025-04-24 06:22] LABS: Glucose,Whole Blood 101 mg/dL (70-110)
[2025-04-24 07:22] VITALS: BP 122/78; RESP 17; TEMP 97.9
[2025-04-24 08:26] LABS: Basophils # (A) 0.02 X 10*3/uL (0.00-0.10); Basophils % (A) 0.4 %; Eosinophils # (A) 0 X 10*3/uL (0.04-0.35); Eosinophils % (A) 0 %; HCT 43.1 % (39.6-50.0); HGB 13.1 g/dL (13.0-17.0); Immature Grans, Automated 1.10 %; Lymphocytes # (A) 0.26 X 10*3/uL (0.90-5.00); Lymphocytes % (A) 4.6 %; MCH 30.9 pg (27.0-32.0); MCHC 30.4 g/dL (32.0-37.0); MCV 101.7 FL (80.0-97.0); Monocytes # (A) 0.31 X 10*3/uL (0.20-1.00); Monocytes % (A) 5.5 %; NRBC Per 100 WBC 0 X 10*3/uL (0.00-0.01); Neutrophils # (A) 4.97 X 10*3/uL (1.80-7.70); Neutrophils % (A) 88.4 %; Platelet Count 153 X 10*3/uL (140-440); RBC 4.24 X 10*6/uL (4.40-5.60); RDW 15.1 % (11.5-14.5); WBC 5.62 X 10*3/uL (4.50-10.00)
[2025-04-24 08:32] LABS: Anion Gap 5.90 mmol/L (4.00-12.00); BUN/Creat Ratio 36.75 Ratio (12.00-20.00); Blood Urea Nitrogen 14.7 mg/dL (9.0-27.0); Calcium 8.6 mg/dL (8.7-10.3); Carbon Dioxide 36.1 mmol/L (21.6-31.8); Chloride 100 mmol/L (96-109); Glucose 112 mg/dL (70-110); Potassium 4.5 mmol/L (3.5-5.5); Sodium 142 mmol/L (135-145)
[2025-04-24 09:43] VITALS: PULSE 80
--- NOTE | 2025-04-24 10:06 | P.PN ---
Subjective HISTORY OF PRESENT ILLNESS: This is a 84-year-old male with a past medical history significant for COPD and hyperlipidemia. 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 We have been asked to see the patient in consultation for elevated troponins. Patient examined at the bedside in the emergency room. Patient is admitted to the hospital second cee to respiratory failure and pneumonia. Patient was found to have elevated troponins. Patient without complaints of chest pain or pressure. He was started on IV heparin. 04/23/2025 Patient seen and examined. Blood pressure 117/75, heart rate 84, pulse ox 95% on 5 L nasal cannula. Patient remains in a sinus rhythm. Echocardiogram reveals EF of 40%, moderate to severe mitral regurgitation, moderate aortic stenosis with peak gradient of 33 and mean gradient of 19 mm. Mitral valve heavily calcified and thickened. Moderate tricuspid regurgitation. The physical examination is remarkable for irregular rhythm with diminished breathing sounds bilaterally and mild bilateral expiratory wheezing and no edema was noted. 04/24/2025 Patient examined this morning at bedside. Patient without complaints of chest pain or pressure. He denies shortness of breath. He is maintaining sinus mechanism. Blood pressure stable. PHYSICAL EXAM: VITAL SIGNS: Reviewed. GENERAL: Well-developed in no acute distress. HEENT: Head is normocephalic. Pupils are equal, round. Sclerae anicteric. Mucous membranes of the mouth are moist. Neck supple. No JVD or thyromegaly LUNGS: Respirations even and unlabored. Lungs diminished bilaterally HEART: Regular rate and rhythm. S1 and S2 heard. Systolic murmur noted ABDOMEN: Soft. Nondistended. Nontender. EXTREMITIES: Normal range of motion. No clubbing or cyanosis. Peripheral pulses intact. No lower extremity edema ASSESSMENT: New onset of paroxysmal atrial fibrillation, currently sinus rhythm Acute hypoxic and hypercapnic respiratory failure Bilateral pneumonia History of COPD Elevated troponins, type II NE secondary to oxygen supply/demand mismatch History of hyperlipidemia Moderate to severe mitral regurgitation Moderate aortic stenosis PLAN: Patient is not a candidate for anticoagulation on outpatient basis due to frequent falls Continue current cardiac medications including aspirin, Lipitor, digoxin We will sign off. Please reconsult if needed. Nurse practitioner note has been reviewed by physician. Signing provider agrees with the documented findings, assessment, and plan of care documented by CHAIR MECHANIC as a scribe. Objective - Vital Signs Vital signs: Vital Signs Temp 97.9 F 04/24/25 07:22 Pulse 80 07/02/25 09:56 Resp 17 04/24/25 07:22 BP 122/78 04/24/25 07:22 Pulse Ox 91 L 04/24/25 07:22 FiO2 40 04/21/25 00:00 Intake & Output 04/23/25 04/24/25 04/24/25 18:59 06:59 18:59 Intake Total 960 Output Total 1300 Balance 960 -1300 Weight 57 kg Intake: Oral 960 Output: Urine 1300 Other: Voiding Method Diaper Diaper External Catheter External Catheter # Voids 2 # Bowel Movements 1 - Labs CBC & Chem 7: 04/24/25 04:40 04/24/25 04:40 Labs: Abnormal Lab Results - Last 24 Hours (Table) 04/23/25 04/23/25 04/24/25 Range/Units 11:28 21:02 04:40 RBC 4.24 L (4.40-5.60) X 10*6/uL MCV 101.7 H (80.0-97.0) FL MCHC 30.4 L (32.0-37.0) g/dL RDW 15.1 H (11.5-14.5) % Immature Gran # 0.06 H (0.00-0.04) X 10*3/uL Lymphocytes # 0.26 L (0.90-5.00) X 10*3/uL Eosinophils # 0 L (0.04-0.35) X 10*3/uL Carbon Dioxide (21.6-31.8) mmol/L Creatinine (0.6-1.5) mg/dL BUN/Creatinine Ratio (12.00-20.00) Ratio Glucose (70-110) mg/dL POC Glucose (mg/dL) 191 H 143 H (70-110) mg/dL Calcium (8.7-10.3) mg/dL 04/24/25 Range/Units 04:40 RBC (4.40-5.60) X 10*6/uL MCV (80.0-97.0) FL MCHC (32.0-37.0) g/dL RDW (11.5-14.5) % Immature Gran # (0.00-0.04) X 10*3/uL Lymphocytes # (0.90-5.00) X 10*3/uL Eosinophils # (0.04-0.35) X 10*3/uL Carbon Dioxide 36.1 H (21.6-31.8) mmol/L Creatinine 0.4 L (0.6-1.5) mg/dL BUN/Creatinine Ratio 36.75 H (12.00-20.00) Ratio Glucose 112 H (70-110) mg/dL POC Glucose (mg/dL) (70-110) mg/dL Calcium 8.6 L (8.7-10.3) mg/dL Microbiology - Last 24 Hours (Table) 04/18/25 20:50 Blood Culture - Final Blood 04/20/25 09:02 Legionella Culture - Preliminary Sputum 04/20/25 09:02 Gram Stain - Final Sputum Sputum Culture - Final Serratia marcescens Renea albicans Saccaromyces cerevisiae
[2025-04-24 11:15] LABS: Glucose,Whole Blood 149 mg/dL (70-110)
--- NOTE | 2025-04-24 12:30 | P.DS ---
Providers Date of admission: 04/18/25 20:08 Expected date of discharge: 04/24/25 Attending physician: Hafsa Lucas Consults: 04/18/25 20:02 Consult Physician Routine Consulting Provider: Rodolfo Cruz Consult Reason/Comments: hypoxic resp failure, possible trace pneumothorax Do you want consulting provider notified?: Yes 04/20/25 14:03 Consult Physician Routine Consulting Provider: Barbara Jauregui Consult Reason/Comments: dysphagia secondary to neuro illness. wasting LMN lesion?? Do you want consulting provider notified?: Yes Primary care physician: Mingo Love MD Hospital Course: Final diagnosis Acute bilateral pneumonia, secondary to aspiration, present on admission Dysphagia Paroxysmal atrial fibrillation, not on anticoagulation per cardiology Severe weight loss and severe protein calorie malnutrition with a BMI of 18.1 Gait dysfunction and generalized weakness Diabetes mellitus, type II Hyperlipidemia GI prophylaxis DVT prophylaxis No code Discharge disposition Patient is being discharged in a stable condition with guarded prognosis to [facility]. Patient will follow-up with Dr. Love in the outpatient setting upon discharge. Patient is to continue with oral Augmentin and nystatin. Total time taken is greater than 35 minutes. Hospital course This is a 84-year-old male who was recently admitted with weight loss with significant dysphagia with concerns of aspiration pneumonia being closely monitored maintained on IV antibiotics along with nystatin therapy. Patient will continue on oral Augmentin along with nystatin for 1 week. Patient is aspirating and high risk for aspiration evaluated by speech recommending possible PEG tube although patient and family is adamant against this. Patient will continue on dysphagia 2 ground diet with honey thickened liquids and no straws. Patient with significant weakness evaluated by PT/OT therapy recommending rehab and patient and family are agreeable. Patient has been cleared by consultations recommending outpatient follow-up with primary care provider. Please refer to other consultation notes for further HPI.Currently no reports of chest pain, shortness of breath, or palpitations. Patient is afebrile. No reports of nausea or vomiting and patient is tolerating diet. Patient will be going to [facility] today. Physical exam: Gen: This is a 84-year-old male who is awake, alert and oriented x 1-2, baseline, elderly appearing, thin built, cachectic, significant muscle wasting noted HEENT: Head is atraumatic, normocephalic. Pupils equal, round. Sclerae is a nicteric. NECK: Supple. No JVD. No lymphadenopathy. No thyromegaly. LUNGS: Diminished breath sounds bilaterally otherwise clear to auscultation. No wheezes, a few scattered rhonchi noted. No intercostal retractions. HEART: S1, S2 are muffled ABDOMEN: Soft. Thin, cachectic bowel sounds are present. No masses. No tenderness. EXTREMITIES: No pedal edema. No calf tenderness. NEUROLOGICAL: Patient is awake, alert and oriented x 1-2. Cranial nerves 2 through 12 are grossly intact. Diffusely weak Please refer to medication reconciliation sheet for a list of medications. The impression and plan of care has been dictated by Shasta Arroyo, Nurse Practitioner as directed. Her MD I have performed a history and examination and MDM of this patient, discussed the same with the dictator, and agree with the dictator's assessment and plan as written ,documented as a scribe. Based on total visit time, I have performed more than 50% of the visit. Patient Condition at Discharge: Fair Plan - Discharge Summary Discharge Rx Participant: Yes New Discharge Prescriptions: New Amoxic-Pot Clav 600-42.9MG/5Ml [Augmentin 600-42.9 mg/5 ml Liquid] 5 ml PO Q12H 7 Days #75 ml Ipratropium-Albuterol Nebulize [Duoneb 0.5 mg-3 mg/3 ml Soln] 3 ml INHALATION RT-Q4H each INSULIN LISPRO (HumaLOG) [HumaLOG] 0 unit SQ ACHS each Atorvastatin [Lipitor] 20 mg PO HS tab Nystatin 100,000 Unit/ml Susp [Mycostatin Oral Susp] 5 ml PO QID 10 Days ml Budesonide [Pulmicort] 1 mg INHALATION RT-BID ml Aspirin 81 mg PO DAILY tab Digoxin [Lanoxin] 125 mcg PO DAILY tab Enoxaparin [Lovenox] 40 mg SQ DAILY each Formoterol Fumarate [Perforomist] 20 mcg INHALATION RT-BID ml predniSONE See Taper PO DIRECTED #30 tab Pantoprazole [Protonix] 40 mg PO AC-BRKFST tab QUEtiapine [SEROquel] 12.5 mg PO HS tab ALPRAZolam [Xanax] 0.25 mg PO BID PRN #4 tab PRN Reason: Agitation Or Acute Anxiety Discharge Medication List ALPRAZolam [Xanax] 0.25 mg PO BID PRN #4 tab 04/24/25 [Rx] Amoxic-Pot Clav 600-42.9MG/5Ml [Augmentin 600-42.9 mg/5 ml Liquid] 5 ml PO Q12H 7 Days #75 ml 04/24/25 [Rx] Aspirin 81 mg PO DAILY tab 04/24/25 [Rx] Atorvastatin [Lipitor] 20 mg PO HS tab 04/24/25 [Rx] Budesonide [Pulmicort] 1 mg INHALATION RT-BID ml 04/24/25 [Rx] Digoxin [Lanoxin] 125 mcg PO DAILY tab 04/24/25 [Rx] Enoxaparin [Lovenox] 40 mg SQ DAILY each 04/24/25 [Rx] Formoterol Fumarate [Perforomist] 20 mcg INHALATION RT-BID ml 04/24/25 [Rx] INSULIN LISPRO (HumaLOG) [HumaLOG] 0 unit SQ ACHS each 04/24/25 [Rx] Ipratropium-Albuterol Nebulize [Duoneb 0.5 mg-3 mg/3 ml Soln] 3 ml INHALATION RT-Q4H each 04/24/25 [Rx] Nystatin 100,000 Unit/ml Susp [Mycostatin Oral Susp] 5 ml PO QID 10 Days ml 04/24/25 [Rx] Pantoprazole [Protonix] 40 mg PO AC-BRKFST tab 04/24/25 [Rx] QUEtiapine [SEROquel] 12.5 mg PO HS tab 04/24/25 [Rx] predniSONE See Taper PO DIRECTED #30 tab 04/24/25 [Rx] Follow up Appointment(s)/Referral(s): Art Alvarez [facility] [STAFF PHYSICIAN[facility] - As Needed Mingo Love MD [Primary Care Provider] - 1-2 days [facility] Visiting Nurse, [NON-STAFF] - Activity/Diet/Wound Care/Special Instructions: Activity as tolerated Patient is going to [facility] Continue with antibiotics for 1 week Continue with nystatin for 1 week Continue with aspiration precautions and head of the bed elevated 35 to 45 degrees at all times Patient is maintained on heart healthy dysphagia diet level 2, ground with honey thickened liquids and no straws Follow-up primary care provider on discharge Discharge/Stand Alone Forms: Who Do I Call?, Adult Foster Halfway List, Assisted Living Facilities, Help In The Home Discharge Disposition: TRANSFER TO SNF/ECF
--- NOTE | 2025-04-24 13:49 | P.PN ---
Subjective Progress Note Date: 04/24/25 Patient currently being evaluated in the emergency department, he is comatose unable to provide information. According to the emergency department note, came in with increased generalized weakness. He had a fall. No reported head trauma. Noted some increased sputum production, shortness of breath, and voice changes. Reportedly, does not take any medications at home. Workup in the ED including CT brain and C-spine which did not show any acute intracranial process. Some nonspecific white matter changes, additional remote supratentorial and infratentorial injuries. Age-indeterminate compression deformity of T1 vertebral body with less than 50% body. Height loss. No retropulsion. Biapical lung seen with diffuse emphysematous changes. Linear foci of air seen in the left pleural/subpleural right apical area, likely artifact. No discernible pneumothorax seen. No chest CT was performed. There was a chest x- ray showing bibasilar airspace opacities right greater than left. Concerning fo r pneumonia. CBC unremarkable for leukocytosis. Hemoglobin 13.2 g/dL. Platelets 155. CMP with sodium 140, potassium 4, chloride 98, serum bicarb 34, BUN 30, creatinine 0.61, glucose 176. 3.3 is down to 1.5. Troponin 0.55. NT proBNP significant elevated 12,500. Repeat EKG showing normal sinus rhythm, no acute ST segment elevations or T wave inversions. Patient previously systemically heparinized. Also started on combination of empiric antibiotics in the form azithromycin and Rocephin. Also previously given some IV Benadryl. Currently, evaluating this patient Emergency Department. He is comatose. Unresponsive even to painful stimuli. On 15 L NRB. I placed the patient on BiPAP. Pressure settings 15/5 and FiO2 to be titrated. ABG drawn including a PaO2 of 233, pCO2 95, pH of 7.19, consistent with severe hypercapnic respiratory failure. He is a DNR/DO NOT INTUBATE, this was confirmed by his family. On today's evaluation of 04/20/2025, the patient is being seen for a follow-up. The patient is still being treated for an acute hypoxic marilee failure and the patient is currently being treated for bilateral lower lobe pneumonia. He is currently off the BiPAP. He has a DNR/DNI CODE STATUS. Procalcitonin level has been low. The patient is currently on oxygen at 3 L/min nasal cannula. I was concerned of the malignancy. The patient was having chronic hoarseness. A CAT scan of the chest was ordered. The CAT scan of the neck was also ordered. No significant abnormalities in the neck. CAT scan of the chest showed extensive emphysema, minimal mediastinal lymphadenopathy, and aortic root was measuring 4.1 cm in size. The patient also had small bilateral pleural effusion and bilateral lower lobe consolidation. He remains on broad-spectrum antibiotics. The patient remains on IV Zosyn. Remains on bronchodilators. Remains on IV Solu-Medrol. Oxygenation is stable at 3 L/min nasal cannula with a pulse ox of 95%. On 04/21/2025, the patient is being seen for a follow-up. The patient has no specific complaints. Doing well. Overall condition is improved compared to yesterday and the patient seems to be less bronchospastic and wheezy and the cough and congestion is also improved. The patient remains on DuoNeb and blood treatments [id number]. IV Solu-Medrol. IV Zosyn. Sputum sample and blood culture still negative for now. Remains on oxygen and patient is currently on room air with a pulse ox of 92%. The patient is seen today April 22, 2025 in follow-up on the selective care unit. He is currently resting in bed. Awake and alert in no acute distress. He is quite agitated and insisting on going home. His son is at the bedside. He is maintaining O2 saturations in the 90s on 4 L/min per nasal cannula. He failed his swallow evaluation. Suspect continued aspiration. Sputum culture with gram-negative bacilli. Blood culture pending. White count 7.5. Hemoglobin 12.9. Platelets 162. Sodium 134. Potassium 4.6. Bicarb 37. BUN 24. C reatinine 0.44. Glucose 100. He is continued on DuoNeb inhalations, Pulmicort and Perforomist inhalations, IV Solu-Medrol. He remains on Zosyn. Lovenox for DVT prophylaxis. The patient is seen today April 23, 2025 in follow-up on the selective care unit. He is currently sitting up in a chair at the bedside. Family members are present. He is a little less agitated currently. He remains in aspiration precautions. He is continued on DuoNeb and elations, Pulmicort and Perforomist inhalations, Solu-Medrol. Antibiotics in the form of Zosyn. Lovenox for DVT prophylaxis. Sputum culture positive for Serratia marcescens, Renea and Saccharomyces cerevisiae. Glucose 191. The patient is seen today April 24, 2025 in follow-up on the regular medical floor. He is awake and alert. Sitting up in a chair. Family is at the bedside. He remains somewhat confused and agitated at times. He denies any worsening shortness of breath, cough or congestion. He is maintaining O2 saturations in the 90s on 5 L/min per nasal cannula. Sputum culture was positive for Serratia marcescens. White count 5.6. Hemoglobin 13.1. Platelets 153. Sodium 142. Potassium 4.5. Bicarb 36. BUN 15. Creatinine 0.4. Glucose 112. He remains on DuoNeb inhalations, Pulmicort and Perforomist inhalations, IV Solu-Medrol. He remains on Zosyn and fluconazole. Objective - Vital Signs Vital signs: Vital Signs Temp 97.9 F 04/24/25 07:22 Pulse 80 04/24/25 09:56 Resp 17 04/24/25 07:22 BP 122/78 04/24/25 07:22 Pulse Ox 91 L 04/24/25 07:22 FiO2 40 04/21/25 00:00 Intake & Output 04/23/25 04/24/25 04/24/25 18:59 06:59 18:59 Intake Total 960 Output Total 1300 850 Balance 960 -1300 -850 Weight 57 kg Intake: Oral 960 Output: Urine 1300 850 Other: Voiding Method Diaper Diaper External Catheter External Catheter # Voids 2 # Bowel Movements 1 1 - Exam GENERAL EXAM: Alert, confused at times 85-year-old male, sitting up in a chair, on 5 L of oxygen by nasal cannula HEAD: Normocephalic and atraumatic EYES: Normal reaction of pupils, equal size. NOSE: Clear with pink turbinates. THROAT: No erythema or exudates. NECK: No masses, no JVD. CHEST: No chest wall deformity. LUNGS: Equal air entry with few scattered rhonchi. CVS: S1 and S2 normal with no audible murmur, regular rhythm. No extra heart sounds ABDOMEN: No hepatosplenomegaly, active bowel sounds, no guarding or rigidity. SPINE: No scoliosis or deformity SKIN: No rashes CENTRAL NERVOUS SYSTEM: Agitated, restless. Tone is normal in all 4 extremities. EXTREMITIES: There is no peripheral edema, clubbing, or cyanosis. Peripheral pulses are intact. - Labs CBC & Chem 7: 04/24/25 04:40 04/24/25 04:40 Labs: Abnormal Lab Results - Last 24 Hours (Table) 04/23/25 04/24/25 04/24/25 Range/Units 21:02 04:40 04:40 RBC 4.24 L (4.40-5.60) X 10*6/uL MCV 101.7 H (80.0-97.0) FL MCHC 30.4 L (32.0-37.0) g/dL RDW 15.1 H (11.5-14.5) % Immature Gran # 0.06 H (0.00-0.04) X 10*3/uL Lymphocytes # 0.26 L (0.90-5.00) X 10*3/uL Eosinophils # 0 L (0.04-0.35) X 10*3/uL Carbon Dioxide 36.1 H (21.6-31.8) mmol/L Creatinine 0.4 L (0.6-1.5) mg/dL BUN/Creatinine Ratio 36.75 H (12.00-20.00) Ratio Glucose 112 H (70-110) mg/dL POC Glucose (mg/dL) 143 H (70-110) mg/dL Calcium 8.6 L (8.7-10.3) mg/dL 04/24/25 Range/Units 11:14 RBC (4.40-5.60) X 10*6/uL MCV (80.0-97.0) FL MCHC (32.0-37.0) g/dL RDW (11.5-14.5) % Immature Gran # (0.00-0.04) X 10*3/uL Lymphocytes # (0.90-5.00) X 10*3/uL Eosinophils # (0.04-0.35) X 10*3/uL Carbon Dioxide (21.6-31.8) mmol/L Creatinine (0.6-1.5) mg/dL BUN/Creatinine Ratio (12.00-20.00) Ratio Glucose (70-110) mg/dL POC Glucose (mg/dL) 149 H (70-110) mg/dL Calcium (8.7-10.3) mg/dL Microbiology - Last 24 Hours (Table) 04/18/25 20:50 Blood Culture - Final Blood 04/20/25 09:02 Legionella Culture - Preliminary Sputum 04/20/25 09:02 Gram Stain - Final Sputum Sputum Culture - Final Serratia marcescens Renea albicans Saccaromyces cerevisiae Assessment and Plan Assessment: Acute hypoxemic and hypercapnic respiratory failure, initially placed on BiPAP, chest x-ray showing bibasilar airspace opacities right greater than left. Concerning for aspiration pneumonia. No pleural effusions. No evidence of pneumothorax. The patient is currently on 4 L nasal cannula. CAT scan of the chest showed advanced emphysema and bilateral lower lobe pulmonary infiltrates. No evidence of any malignancy. Sputum culture showing Serratia marcescens COPD/emphysema Acute non-ST elevation FL, systemically heparinized Fall, CT brain and C-spine which did not show any acute intracranial process. Some nonspecific white matter changes, additional remote supratentorial and infratentorial injuries. Age-indeterminate compression deformity of T1 vertebral body with less than 50% body. Height loss. No retropulsion. Biapical lung seen with diffuse emphysematous changes. Linear foci of air seen in the left pleural/subpleural right apical area, likely artifact. No discernible pneumothorax seen Large right inguinal hernia containing small and large bowel. No signs of strangulation Nonobstructing nephrolithiasis Age-indeterminate T1 vertebral body compression deformity History of hyperlipidemia Severe protein calorie malnutrition Plan: The patient was seen and evaluated Labs and medications reviewed Microbiology reviewed Remains on Zosyn Continue DuoNeb inhalations Continue Pulmicort and Perforomist inhalations Discontinue IV Solu-Medrol Initiate a prednisone taper Lovenox for DVT prophylaxis Titrate down the FiO2 as tolerated Plan is for [facility] today This patient was seen independently by the pulmonary nurse practitioner addressing pulmonary issues I have personally seen and examined the patient, performed the documentation and the assessment and plan as written. Number of minutes spent on the visit: 24 Dictation was produced using [employer] dictation software. Please excuse any grammatical, word or spelling errors.
--- NOTE | 2025-04-24 14:39 | P.PN ---
Subjective Progress Note Date: 04/24/25 I am seeing the patient for the first time during this hospital admission. Please refer to Dr. Jauregui's notes for further details. The grand-daughter is at bedside and did not know exact details of patient c omplaints but stated was told had aspiration pneumonia. Regarding to his dysphagia, she is unsure about that complaint but states currently eating without issues and patient himself feels he is doing well and handling food without issues. My colleague ordered Acetylcholine receptor antibody and pe nding result. Objective - Vital Signs Vital signs: Vital Signs Temp 97.9 F 04/24/25 07:22 Pulse 80 04/24/25 09:56 Resp 17 04/24/25 07:22 BP 122/78 04/24/25 07:22 Pulse Ox 91 L 04/24/25 07:22 FiO2 40 04/21/25 00:00 Intake & Output 04/23/25 04/24/25 04/24/25 18:59 06:59 18:59 Intake Total 960 Output Total 1300 850 Balance 960 -1300 -850 Weight 57 kg Intake: Oral 960 Output: Urine 1300 850 Other: Voiding Method Diaper Diaper External Catheter External Catheter # Voids 2 # Bowel Movements 1 1 - Exam General: Sitting in a recliner chair and finish-up lunch and denies any acute distress. Neuro: The patient is awake, alert, oriented to self and place. Is following simple commands. No aphasia. Pupils are 3mm, round and reactive to light. No facial weakness. Has mild dysarthria. Motor: Strength is lifting uppers above gravity equally and wiggling toes bilaterally. - Labs CBC & Chem 7: 04/24/25 04:40 04/24/25 04:40 Labs: Abnormal Lab Results - Last 24 Hours (Table) 04/23/25 04/24/25 04/24/25 Range/Units 21:02 04:40 04:40 RBC 4.24 L (4.40-5.60) X 10*6/uL MCV 101.7 H (80.0-97.0) FL MCHC 30.4 L (32.0-37.0) g/dL RDW 15.1 H (11.5-14.5) % Immature Gran # 0.06 H (0.00-0.04) X 10*3/uL Lymphocytes # 0.26 L (0.90-5.00) X 10*3/uL Eosinophils # 0 L (0.04-0.35) X 10*3/uL Carbon Dioxide 36.1 H (21.6-31.8) mmol/L Creatinine 0.4 L (0.6-1.5) mg/dL BUN/Creatinine Ratio 36.75 H (12.00-20.00) Ratio Glucose 112 H (70-110) mg/dL POC Glucose (mg/dL) 143 H (70-110) mg/dL Calcium 8.6 L (8.7-10.3) mg/dL 04/24/25 Range/Units 11:14 RBC (4.40-5.60) X 10*6/uL MCV (80.0-97.0) FL MCHC (32.0-37.0) g/dL RDW (11.5-14.5) % Immature Gran # (0.00-0.04) X 10*3/uL Lymphocytes # (0.90-5.00) X 10*3/uL Eosinophils # (0.04-0.35) X 10*3/uL Carbon Dioxide (21.6-31.8) mmol/L Creatinine (0.6-1.5) mg/dL BUN/Creatinine Ratio (12.00-20.00) Ratio Glucose (70-110) mg/dL POC Glucose (mg/dL) 149 H (70-110) mg/dL Calcium (8.7-10.3) mg/dL Microbiology - Last 24 Hours (Table) 04/18/25 20:50 Blood Culture - Final Blood 04/20/25 09:02 Legionella Culture - Preliminary Sputum 04/20/25 09:02 Gram Stain - Final Sputum Sputum Culture - Final Serratia marcescens Renea albicans Saccaromyces cerevisiae Assessment and Plan Assessment: * Dysphagia, unclear cause--unsure if due to pneumonia--feels better. * Aspiration pneumonia * Probable peripheral neuropathy. Patient has high arched feet and hammertoes. * Diabetes, in remission since weight loss * Hard of hearing * Hyperlipidemia * Osteoarthritis * Ex tobacco us Plan: * Patient's dysphagia is of unclear cause. No obvious evidence of motor neuron disease noticed. No muscle fasciculations, atrophy. He does have evidence of peripheral neuropathy with evidence of high arched feet and hammertoes. Patient also has balance issues. Recommend EMG and nerve conduction studies of bilateral lower limbs as an outpatient to evaluate for peripheral neuropathy, rule out any evidence of motor neuron disease. * Await acetylcholine receptor antibodies ordered by Dr. Jauregui. * B12 610, hemoglobin A1c 5.4. * DVT prophylaxis: On Lovenox. Will follow-up with patient sporadically. Time with Patient: Less than 30
== END 2025-04-24 14:45 | DRG 177 ==
LOC: EC 15:38 → 3SCARD 20:08 → 4SSUR 04-23 21:29
PROVIDERS: ADMIT Hospitalist; ATTEND Hospitalist
PROC: 5A09357 Assistance with Respiratory Ventilation, Less than 24 Consecutive Hours, Continuous Positive Airway Pressure (ICD-10-PCS; principal; 2025-04-18)
DX: J69.0 Pneumonitis due to inhalation of food and vomit (principal); E43 Unspecified severe protein-calorie malnutrition; I21.A1 Myocardial infarction type 2; J96.01 Acute respiratory failure with hypoxia; J96.02 Acute respiratory failure with hypercapnia; Z66 Do not resuscitate; I48.0 Paroxysmal atrial fibrillation; E11.42 Type 2 diabetes mellitus with diabetic polyneuropathy; J43.9 Emphysema, unspecified; F32.A Depression, unspecified; I08.3 Combined rheumatic disorders of mitral, aortic and tricuspid valves; M48.54XA Collapsed vertebra, not elsewhere classified, thoracic region, initial encounter for fracture; Z68.1 Body mass index [BMI] 19.9 or less, adult; Q25.43 Congenital aneurysm of aorta; J15.69 Pneumonia due to other Gram-negative bacteria; E78.5 Hyperlipidemia, unspecified; R54 Age-related physical debility; H91.90 Unspecified hearing loss, unspecified ear; M19.90 Unspecified osteoarthritis, unspecified site; N20.0 Calculus of kidney; R13.10 Dysphagia, unspecified; W19.XXXA Unspecified fall, initial encounter; Z86.73 Personal history of transient ischemic attack (TIA), and cerebral infarction without residual deficits; Z87.01 Personal history of pneumonia (recurrent); Z87.891 Personal history of nicotine dependence; Z91.81 History of falling
CPT/HCPCS: 36415; 36600; 70450; 70491; 71045; 71046; 71260; 72125; 74019; 74176; 74230; 80048; 80053; 80162; 81001; 82607; 82747; 82803; 82805; 83036; 83605; 83880; 84145; 84443; 84484; 85025; 85610; 85652; 85730; 86041; 86140; 87040; 87070; 87077; 87186; 87205; 87449; 93005; 93306; 94640; 94660; 94760; 96361; 96365; 96366; 96368; 96372; 96375; 96376; 99285